=== PATIENT | female | born 1980 | race Caucasian/White ===

== ENCOUNTER 2019-09-24 08:38 | Outpatient (CLI) | payer MEDICARE, MEDICAID, SELFPAY ==
--- NOTE | 2019-09-24 09:02 | CT_ITS ---
WS: [id number] CT PARANASAL SINUSES HISTORY: CHRONIC SINUSITIS TECHNIQUE: Contiguous 2.5 mm axial images obtained through the sinuses. Images are reconstructed in s agittal and coronal planes. All CT scans at [facility] use at least one of these dose opt imization techniques: automated exposure control; mA and/or kV adjustment per patient size (includes targeted exams where dose is matched to clinical indication); or iterative reconstruction. DLP: 384.66 mGycm COMPARISON: 05/03/2017 and 12/15/2016 Frontal sinuses: Clear. Improved since the prior study. Sphenoid sinus: Moderate mucoperiosteal thickening in the RIGHT sphenoid sinus. Progressed since 12/15. Ethmoid sinuses: Small amount mucoperiosteal thickening in the posterior RIGHT ethmoid air cells, sim ilar to prior study. Maxillary sinus: Clear. Ostiomeatal unit: Widely patent. No obstruction. Nasal septum is essentially midline. Tiny spur extends to the RIGHT lung the inferior septum without any significant obstruction. CT/CT sinus wo con* [id number] IMPRESSION: 1. Moderate mucoperiosteal thickening in the RIGHT sphenoid sinus which has sl ightly progressed since 2016. 2. No air-fluid levels within the paranasal sinuses. 3. Patent ostiomeatal units.
== END 2019-09-24 08:39 | disposition home or self-care (01) ==
LOC: RADWPI 08:43
PROVIDERS: Family Provider Family Medicine; PCP Nurse Practitioner Family; Referring Provider Nurse Practitioner Family; Visit Provider Nurse Practitioner Family
DX: J32.3 Chronic sphenoidal sinusitis (principal)
CPT/HCPCS: 70486

== ENCOUNTER 2019-10-03 16:16 | Emergency (ER) | payer OTHER, MEDICARE, MEDICAID, SELFPAY ==
[2019-10-03 16:51] VITALS: BP 156/91; PULSE 71; RESP 18; TEMP 36.9; O2SAT 100; BMI 42.9
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
[2019-10-03] MEDS: ketorolac 60 mg/2 mL INJ IM (17:22)
[2019-10-03 17:32] VITALS: BP 143/83; PULSE 70; RESP 14; O2SAT 99
[2019-10-03 17:45] VITALS: BP 112/65; PULSE 81; RESP 16; TEMP 36.6; O2SAT 98
[2019-10-03 18:12] VITALS: BP 138/84; PULSE 70; RESP 14; TEMP 36.8; O2SAT 100
== END 2019-10-03 18:13 | disposition home or self-care (01) ==
PROVIDERS: Emergency Provider Nurse Practitioner Family; Family Provider Family Medicine; PCP Nurse Practitioner Family
DX: Z04.1 Encounter for examination and observation following transport accident (principal); V89.2XXA Person injured in unspecified motor-vehicle accident, traffic, initial encounter
CPT/HCPCS: 72072; 96372; 99281; J1885

== ENCOUNTER → 2019-10-15 13:06 | Outpatient (BNVA) | payer MEDICARE, MEDICAID, SELFPAY | PROVIDERS: Family Provider Family Medicine; PCP Nurse Practitioner Family; Visit Provider Psychiatry & Neurology Psychiatry | DX: F42.9 Obsessive-compulsive disorder, unspecified (principal); F33.41 Major depressive disorder, recurrent, in partial remission | CPT/HCPCS: 99213 ==

== ENCOUNTER 2019-10-30 11:06 | Outpatient (CLI) | payer MEDICARE, MEDICAID, SELFPAY ==
--- NOTE | 2019-10-30 11:26 | XR_ITS ---
WS: [id number] PROCEDURE: XR chest 2V* [id number] CLINICAL INFORMATION: DYSPNEA, COUGH COMPARISON: FINDINGS: Heart: Normal cardiac silhouette. Lungs: Lungs are clear. No consolidation or pleural fluid. No acute pulmonary infiltrates. Bones: Normal visualized bony structures. XR/XR chest 2V* [id number] IMPRESSION: Normal chest
== END 2019-10-30 11:07 | disposition home or self-care (01) ==
LOC: RADWPI 11:09
PROVIDERS: Family Provider Family Medicine; PCP Nurse Practitioner Family; Visit Provider Nurse Practitioner Family
DX: R06.00 Dyspnea, unspecified (principal); R05 Cough
CPT/HCPCS: 71046

== ENCOUNTER → 2019-11-13 09:52 | Outpatient (BNVA) | payer MEDICARE, MEDICAID, SELFPAY | PROVIDERS: Family Provider Family Medicine; PCP Nurse Practitioner Family; Visit Provider Psychiatry & Neurology Psychiatry | DX: F33.41 Major depressive disorder, recurrent, in partial remission (principal); F42.9 Obsessive-compulsive disorder, unspecified; F33.42 Major depressive disorder, recurrent, in full remission | CPT/HCPCS: 99212 ==

== ENCOUNTER → 2020-01-08 07:32 | Outpatient (BNVA) | payer MEDICARE, MEDICAID, SELFPAY | PROVIDERS: Family Provider Family Medicine; PCP Nurse Practitioner Family; Visit Provider Psychiatry & Neurology Psychiatry | DX: F42.2 Mixed obsessional thoughts and acts (principal); F33.42 Major depressive disorder, recurrent, in full remission; F17.219 Nicotine dependence, cigarettes, with unspecified nicotine-induced disorders; F43.12 Post-traumatic stress disorder, chronic | CPT/HCPCS: 99213 ==

== ENCOUNTER 2020-01-13 11:19 | Outpatient (CLI) | payer MEDICARE, MEDICAID, SELFPAY ==
--- NOTE | 2020-01-13 11:31 | XR_ITS ---
WS: [id number] FOOT RIGHT TECHNIQUE: 3 views of the right foot CLINICAL INFORMATION: right foot pain COMPARISON: None. FINDINGS: No evidence of acute fracture or dislocation. Normal tarsal metatarsal alignment. Normal calcaneus. N ormal visualized talar dome. Soft tissue edema lower leg and foot. Plantar calcaneal spurring. XR/XR foot RT min 3V* [id number] IMPRESSION: Soft tissue edema. No acute fractures
== END 2020-01-13 11:20 | disposition home or self-care (01) ==
LOC: RADWPI 11:25
PROVIDERS: Family Provider Family Medicine; PCP Nurse Practitioner Family; Visit Provider Family Medicine
DX: M79.671 Pain in right foot (principal); R60.9 Edema, unspecified
CPT/HCPCS: 73630

== ENCOUNTER 2020-02-12 14:13 | Outpatient (CLI) | payer MEDICARE, MEDICAID, SELFPAY | END 2020-02-12 14:14 | disposition home or self-care (01) | LOC: SPT 14:13 | PROVIDERS: Family Provider Family Medicine; PCP Nurse Practitioner Family; Visit Provider Podiatrist Foot & Ankle Surgery | DX: M72.2 Plantar fascial fibromatosis (principal) | CPT/HCPCS: 97760; L3030 ==

== ENCOUNTER → 2020-03-04 07:27 | Outpatient (BNVA) | payer MEDICARE, MEDICAID, SELFPAY | PROVIDERS: Family Provider Family Medicine; PCP Nurse Practitioner Family; Visit Provider Psychiatry & Neurology Psychiatry | DX: F33.42 Major depressive disorder, recurrent, in full remission (principal); F42.2 Mixed obsessional thoughts and acts; F17.219 Nicotine dependence, cigarettes, with unspecified nicotine-induced disorders | CPT/HCPCS: 99213 ==

== ENCOUNTER 2020-03-23 14:30 | Outpatient (CLI) | payer MEDICARE, MEDICAID, SELFPAY ==
--- NOTE | 2020-03-23 14:37 | XR_ITS ---
WS: [id number] ABDOMEN Supine view of the abdomen CLINICAL INFORMATION: HX OF KIDNEY STONES/RIGHT FLANK PAIN COMPARISON: None. FINDINGS: Normal bowel gas pattern. Scattered air and normal caliber small and large bowel. No significant caterina l distention. Mild lumbar curve convex right. Cholecystectomy clips. No visualized renal or ureteral calculi. XR/XR abdomen 1V* [id number] IMPRESSION: No acute abdominal findings
== END 2020-03-23 14:31 | disposition home or self-care (01) ==
LOC: RADWPI 14:34
PROVIDERS: Family Provider Family Medicine; PCP Family Medicine; Visit Provider Family Medicine
DX: R10.9 Unspecified abdominal pain (principal); Z87.442 Personal history of urinary calculi
CPT/HCPCS: 74018; 80048

== ENCOUNTER → 2020-04-07 14:11 | Outpatient (BNVA) | payer MEDICARE, MEDICAID, SELFPAY | PROVIDERS: Family Provider Family Medicine; PCP Family Medicine; Visit Provider Family Medicine | DX: R60.0 Localized edema (principal) | CPT/HCPCS: 80048 ==

== ENCOUNTER → 2020-04-20 16:44 | Outpatient (BNVA) | payer MEDICARE, MEDICAID, SELFPAY | PROVIDERS: Family Provider Family Medicine; PCP Family Medicine; Visit Provider Family Medicine | DX: R60.0 Localized edema (principal) | CPT/HCPCS: 80048 ==

== ENCOUNTER → 2020-04-22 09:37 | Outpatient (BNVA) | payer MEDICARE, MEDICAID, SELFPAY | PROVIDERS: Family Provider Family Medicine; PCP Family Medicine; Visit Provider Psychiatry & Neurology Psychiatry | DX: F33.42 Major depressive disorder, recurrent, in full remission (principal); F42.2 Mixed obsessional thoughts and acts; F17.219 Nicotine dependence, cigarettes, with unspecified nicotine-induced disorders | CPT/HCPCS: 99212 ==

== ENCOUNTER 2020-05-03 | Outpatient (CLI) | payer MEDICARE, MEDICAID, SELFPAY | END 2020-05-03 23:00 | disposition home or self-care (01) | LOC: SPT 06-14 16:23 | PROVIDERS: PCP Family Medicine; Referring Provider Podiatrist Foot & Ankle Surgery; Visit Provider Podiatrist Foot & Ankle Surgery | DX: M72.2 Plantar fascial fibromatosis (principal) | CPT/HCPCS: 97760; L4397 ==

== ENCOUNTER 2020-05-10 10:07 | Outpatient (CLI) | payer MEDICARE, MEDICAID, SELFPAY ==
--- NOTE | 2020-05-10 10:15 | USCV_ITS ---
Maria Alejandra Underwood Age: 39 Gender: F : 1980 Exam Date: 05/10/2020 10:09 Ordering Phys: Pili Fiugeredo DO Technologist: Keyla Maynard [place] [facility] [place]: HISTORY: Lower extremity edema. PROCEDURES: Right duplex Venous Insufficiency study of the Deep and Superficial systems was carried out according to normal protocol with the patient in supine positon for deep system and dependent position for the superficial system. FINDINGS: There is no evidence of RIGHT deep vein thrombosis. No evidence of superficial thrombosis in the RIGHT saphenous system. The veins were found to be easily compressible with spontaneous blood flow. Non pulsatile flow pattern. CONCLUSIONS 1. Significant venous reflux of greater than 500 ms were noted at the mid, distal and below-knee greater saphenous vein segments on the right side. (The reflux time was 1610 to 3390 ms). These venous segments were measuring 0.5 to 0.66 cm in diameter and greater than 1 cm deep from the surface. 2. No other significant venous reflux were noted on the right side. 3. No evidence of any deep vein thrombosis. Dr Luis Miguel Fine MD FAC (Electronically Signed) Final Date: 11 May 2020 18:39 S
== END 2020-05-10 10:08 | disposition home or self-care (01) ==
LOC: US 10:08
PROVIDERS: PCP Family Medicine; Visit Provider Family Medicine
DX: I87.2 Venous insufficiency (chronic) (peripheral) (principal); R60.0 Localized edema
CPT/HCPCS: 93971

== ENCOUNTER → 2020-07-21 09:03 | Outpatient (BNVA) | payer MEDICARE, MEDICAID, SELFPAY | PROVIDERS: PCP Nurse Practitioner Family; Visit Provider Psychiatry & Neurology Psychiatry | DX: F33.42 Major depressive disorder, recurrent, in full remission (principal); F42.2 Mixed obsessional thoughts and acts; F17.219 Nicotine dependence, cigarettes, with unspecified nicotine-induced disorders | CPT/HCPCS: 99213 ==

== ENCOUNTER 2020-08-27 13:06 | Emergency (ER) | payer MEDICARE, MEDICAID, SELFPAY ==
[2020-08-27 13:16] VITALS: BP 122/84; PULSE 85; RESP 18; TEMP 37.6; O2SAT 99; BMI 43.7
[2020-08-27 13:41] VITALS: BP 128/79; PULSE 64; RESP 16; O2SAT 97
--- NOTE | 2020-08-27 13:44 | W.ED.DENTAL ---
HPI - Dental/Oral General: Chief complaint: Dental/Oral Stated complaint: Oral Pain/Swelling/recent extraction Time Seen by Provider: 08/27/20 13:37 History of Present Illness: HPI Narrative: Patient is a 40-year-old female comes to the ED with oral pain and swelling. Patient had some teeth extracted on August 23. Today patient woke up with fever, right sided maxillary facial swelling and pain. She contacted her dentist and she has an appointment with them on August 30 for reevaluation. I told her she should probably be seen and put on an antibiotic. Patient says she is allergic to multiple antibiotics but has been able to take Augmentin with Benadryl in the past and she has not had any reactions. Associated symptoms: Reports fever(s); Denies odynophagia Review of Systems Const: Reports: fever(s); Denies: chills or fatigue Eyes: Denies: change in vision or eye discomfort ENMT: Reports: dental pain (Upper maxillary molars extracted on SundayAugust 23.) and sinus pain (Maxillary facial tenderness and swelling.); Denies: throat pain, odynophagia, nasal discharge or nasal congestion Card: Denies: chest pain, palpitations, edema, swelling of feet/ankles, dyspnea on exertion or orthopnea Resp: Denies: dyspnea, productive cough or non-productive cough GI: Denies: abdominal pain, nausea, vomiting, diarrhea, constipation or hematochezia : Denies: flank pain, dysuria or hematuria Musc: Denies: neck pain, back pain or extremity swelling Skin/Breast: Denies: rash or new lesions Neuro: Denies: headache(s), numbness in extremities or weakness in extremities PFSH ED PFSH: Medical History delivery delivered Enrolled in chronic care management Major depression, recurrent, full remission Nicotine dependence, cigarettes, with unspecified nicotine-induced disorders Obsessive compulsive disorder Surgical History H/O lithotripsy S/P cholecystectomy S/P tubal ligation Family History Other Hyperlipidemia Hypertension Social History Smoking and tobacco status: current every day smoker cigarettes Packs smoked per day: 1 Years cigarettes smoked: 23 Quit status (tobacco): not considering quitting Second hand smoke exposure: Yes Alcohol intake: never Female Reproductive History: Date of last menstrual period: 11/16/19 Para: 2 Physical Exam Const: COMMON NORMALS: no acute distress, patient oriented x3 and alert GENERAL APPEARANCE: cooperative and comfortable HENMT: COMMON NORMALS: normocephalic HEAD & SCALP: normocephalic FACE & SINUS: edema on the right maxilla (mild edema seen) and Facial tenderness on exam of face and sinuses on the right maxilla MOUTH: Normal oral and palatal mucosa present THROAT: posterior oropharynx normal and uvula midline Eye: COMMON NORMALS: Equal, round and reactive pupils present PUPIL: Yes Equal, round and reactive pupils present Neck/C-Spine: COMMON NORMALS: supple GENERAL: Yes normal visual inspection Resp: COMMON NORMALS: normal respiratory effort, No retractions, No use of accessory muscles and clear to auscultation bilaterally AUSCULTATION: clear to auscultation bilaterally Cardio: COMMON NORMALS: regular rate, regular rhythm, S1 normal heart sound present, S2 normal heart sound present, No gallops present (Cardio), No clicks present (Cardio), No murmurs present (Cardio) and Peripheral pulses 2+ throughout RATE: regular rate RHYTHM: regular rhythm HEART SOUNDS: S1 normal heart sound present and S2 normal heart sound present PERIPHERAL PULSES: Peripheral pulses 2+ throughout GI: COMMON NORMALS: Normal to inspection, nondistended, normoactive bowel sounds present, Soft to palpation, non-tender and no masses PALPATION: Yes Soft to palpation : COMMON NORMALS: Yes no CVA tenderness BLADDER/KIDNEY EXAM: Yes no CVA tenderness Back/Pelvis: COMMON NORMALS: no CVA tenderness Extremity: COMMON NORMALS: normal to inspection Neuro: COMMON NORMALS: patient oriented x3 and moves all extremities SENSORIUM/ORIENTATION: Yes alert Skin: GENERAL SKIN EXAM: dry skin Course Vital Signs: Vital signs: Vital Signs Temperature 99.7 F H 08/27/20 13:16 Pulse Rate 66 08/27/20 14:43 Respiratory Rate 16 08/27/20 14:43 Blood Pressure 136/88 08/27/20 14:43 Pulse Oximetry 97 08/27/20 14:43 MDM - Dental/Oral MDM Narrative: Medical decision making narrative: Patient had 2 upper right maxillary molars removed on August 23. She woke up today with some right maxillary facial swelling and tenderness and a fever. She contacted the dentist who performed the dental extraction and they told her to go to the ED and be put on some antibiotics. They will see patient on August 30. Patient had no signs of distress or trouble breathing. Patient was put on a prescription of Augmentin and discharged and told to follow-up with her dentist at her scheduled appointment this coming Sunday for reevaluation. Return to ED precautions given. Patient understood agree with plan. Discharge Plan Discharge Patient Disposition: Home Clinical Impression: Dental infection, Status post tooth extraction Condition: Stable Prescriptions: New Augmentin 500-125 mg tablet 1 tab PO BID 7 Days Qty: 14 RF: 0 Benadryl Allergy 25 mg tablet 25 mg PO Q8H PRN (Reason: allergic reaction) Qty: 30 RF: 0 No Action (DME) Sole Supports Qty: 1 RF: 0 (DME) night splint See Rx Instructions .Route .MEDSUPPLY Qty: 1 RF: 0 albuterol sulfate [Ventolin HFA] 90 mcg/actuation HFA aerosol inhaler 2 puff INHALATION Q6H PRN (Reason: Shortness Of Breath) RF: 0 Flovent HFA 110 mcg/actuation HFA aerosol inhaler 1 puff INHALATION BID PRN (Reason: Shortness Of Breath) Qty: 12 RF: 3 diazepam 5 mg tablet 5 mg PO DAILY PRN (Reason: severe Anxiety) Qty: 30 RF: 0 simvastatin 40 mg Tablet 40 mg PO DAILY@1999 RF: 0 fluticasone propionate [Flonase Allergy Relief] 50 mcg/actuation [place],Suspension 2 spray INTRANASAL BID@ RF: 0 hydrocodone-acetaminophen 5-325 mg tablet 1 tab PO PRN PRN (Reason: Pain) RF: 0 Benadryl 25 mg Capsule 25 mg PO Q6H PRN (Reason: Allergy Symptoms) RF: 0 ibuprofen 200 mg Tablet 200 mg PO Q6H PRN (Reason: Pain) RF: 0 montelukast 10 mg tablet 10 mg PO DAILY@1999 RF: 0 doxycycline hyclate 100 mg capsule 100 mg PO BID@ RF: 0 mupirocin 2 % ointment 1 applic TOPICAL BID@ RF: 0 Lasix 20 mg tablet 20 mg PO DAILY@1300 RF: 0 metoprolol tartrate 25 mg tablet 25 mg PO BID@ RF: 0 Discharge Orders: Discharge ED (Routine); Ordered 08/27/20 Ordered By: Adarsh Santiago Referrals: Modesta Hopson FNP [Primary Care Provider] - Discharge Diet: Regular Discharge Activity: Increase activity as tolerated Activity Restrictions/Additional Instructions: Follow-up with dentist at your scheduled appointment on Sunday, August 30. Take medications as prescribed. Return to the ER or your medical provider if condition worsens. Please read and understand discharge instructions. If any questions, please ask. Coding Level of Care Code ED Nuclear Control Room Operator for Kristeng Fwd Exam Comprehensive
[2020-08-27] MEDS: amoxicillin-clav 500-125 mg Tablet 1 TAB PO (14:06)
[2020-08-27] MEDS: HYDROcodone-acetaminophen 7.5-325 mg Tablet 1 TAB PO (14:06)
[2020-08-27] MEDS: diphenhydrAMINE 25 mg Capsule PO (14:07)
[2020-08-27 14:43] VITALS: BP 136/88; PULSE 66; RESP 16; O2SAT 97
== END 2020-08-27 14:43 | disposition home or self-care (01) ==
PROVIDERS: Emergency Provider Physician Assistant; PCP Nurse Practitioner Family
DX: K04.7 Periapical abscess without sinus (principal); K08.409 Partial loss of teeth, unspecified cause, unspecified class; F17.210 Nicotine dependence, cigarettes, uncomplicated
CPT/HCPCS: 12345; 99281; 99283

== ENCOUNTER 2020-08-29 02:36 | Emergency (ER) | payer MEDICARE, MEDICAID, SELFPAY ==
[2020-08-29 02:39] VITALS: BP 118/80; PULSE 62; RESP 18; TEMP 36.2; O2SAT 100; BMI 43.7
--- NOTE | 2020-08-29 02:50 | W.ED.DENTAL ---
Documented by User: IVAN Chandler 08/29/20 17:07 HPI - Dental/Oral General: Chief complaint: Dental/Oral Stated complaint: toothpulled last sunday/headache/here yesterday Time Seen by Provider: 08/29/20 02:38 History of Present Illness: HPI Narrative: Patient is a 40-year-old female comes to the ED with right upper jaw pain. Patient had teeth pulled on Sunday, August 23. Patient was seen here in the ED on August 27 due to pain and swelling to right side of face. She was sent home with a prescription of Augmentin and has an appointment with her dentist on Sunday to be reevaluated. She says today the pain has gotten worse and she feels like pain is moving down into her neck. She has been taking the Augmentin as prescribed and took 2 doses on Sunday and 2 doses today. She feels like the Augmentin has helped with some of the facial swelling and pain that was in the right maxillary region and moving upward. She says that has improved quite a bit but now she is having this increased pain and the pain is moved down towards the neck. Denies any fevers, chill, shortness of breath or swelling of the airway. Associated symptoms: Denies fever(s) or odynophagia Review of Systems Const: Denies: fever(s), chills or fatigue Eyes: Denies: change in vision or eye discomfort ENMT: Reports: sinus pain (Right maxillary and right mandible); Denies: throat pain, odynophagia, nasal discharge or nasal congestion Card: Denies: chest pain, palpitations, edema, swelling of feet/ankles, dyspnea on exertion or orthopnea Resp: Denies: dyspnea, productive cough or non-productive cough GI: Denies: abdominal pain, nausea, vomiting, diarrhea, constipation or hematochezia : Denies: flank pain, dysuria or hematuria Musc: Reports: neck pain (Right anterior aspect of neck is swollen and tender.); Denies: back pain or extremity swelling Skin/Breast: Denies: rash or new lesions Neuro: Denies: headache(s), numbness in extremities or weakness in extremities [facility] ED PFSH: Medical History (Updated 08/29/20 @ 04:18 by Andrew Eugene DO) delivery delivered Enrolled in chronic care management Major depression, recurrent, full remission Nicotine dependence, cigarettes, with unspecified nicotine-induced disorders Obsessive compulsive disorder Surgical History H/O lithotripsy S/P cholecystectomy S/P tubal ligation Family History Other Hyperlipidemia Hypertension Social History Smoking and tobacco status: current every day smoker cigarettes Packs smoked per day: 1 Years cigarettes smoked: 23 Quit status (tobacco): not considering quitting Second hand smoke exposure: Yes Alcohol intake: never Female Reproductive History: Date of last menstrual period: 11/16/19 Para: 2 Physical Exam Const: COMMON NORMALS: patient oriented x3 and alert GENERAL APPEARANCE: cooperative and comfortable HENMT: COMMON NORMALS: normocephalic HEAD & SCALP: normocephalic FACE & SINUS: Facial tenderness on exam of face and sinuses on the right mandible and maxilla MOUTH: Normal oral and palatal mucosa present TEETH & GINGIVA: Yes gingiva abnormal tender (Around extracted molars 1 and 2.) and Yes other (Patient's molars #1 and 2 have been extracted and has gingival tenderness t) THROAT: posterior oropharynx normal and uvula midline Eye: COMMON NORMALS: Equal, round and reactive pupils present PUPIL: Yes Equal, round and reactive pupils present Neck/C-Spine: COMMON NORMALS: supple GENERAL: Yes normal visual inspection Lymph: LYMPHATIC: lymphadenopathy (Patient has multiple palpable tender lymph nodes on right anterior cervical) Resp: COMMON NORMALS: normal respiratory effort, No retractions, No use of accessory muscles and clear to auscultation bilaterally AUSCULTATION: clear to auscultation bilaterally Cardio: COMMON NORMALS: regular rate, regular rhythm, S1 normal heart sound present, S2 normal heart sound present, No gallops present (Cardio), No clicks present (Cardio), No murmurs present (Cardio) and Peripheral pulses 2+ throughout RATE: regular rate RHYTHM: regular rhythm HEART SOUNDS: S1 normal heart sound present and S2 normal heart sound present PERIPHERAL PULSES: Peripheral pulses 2+ throughout GI: COMMON NORMALS: Normal to inspection, nondistended, normoactive bowel sounds present, Soft to palpation, non-tender and no masses PALPATION: Yes Soft to palpation : COMMON NORMALS: Yes no CVA tenderness BLADDER/KIDNEY EXAM: Yes no CVA tenderness Back/Pelvis: COMMON NORMALS: no CVA tenderness Extremity: COMMON NORMALS: normal to inspection Neuro: COMMON NORMALS: patient oriented x3 and moves all extremities SENSORIUM/ORIENTATION: Yes alert Skin: GENERAL SKIN EXAM: dry skin Course ED course: Patient was signed out to Dr. Eugene at 3 AM. I informed him on patient case and that I ordered labs and a neck CT to check for any abscess. Dr. Eugene accepted care will be managing patient care and discharge. Adarsh Santiago PA-C. Vital Signs: Vital signs: Vital Signs Temperature 97.2 F L 08/29/20 02:39 Pulse Rate 60 08/29/20 04:48 Respiratory Rate 17 08/29/20 04:48 Blood Pressure 120/81 08/29/20 04:48 Pulse Oximetry 99 08/29/20 04:48 MDM - Dental/Oral Lab Data: Labs: Lab Results 08/29/20 08/29/20 08/29/20 Range/Units 03:17 03:17 03:17 WBC 16.5 H (4.0-10.0) 10^3/ uL RBC 4.81 (4.1-5.3) 10^6/u L Hgb 15.0 (11.5-15.3) g/dL Hct 45.8 (37.0-47.0) % MCV 95.2 (81-99) fL MCH 31.2 (28.0-34.0) pg MCHC 32.8 (30.0-36.0) g/dL RDW 12.8 (12.1-15.1) % Plt Count 370 (130-400) 10^3/c mm MPV 9.9 (7.4-10.4) fL Neut % (Auto) 60.2 % Lymph % (Auto) 30.4 % [place] % (Auto) 7.8 % Eos % (Auto) 0.9 % Baso % (Auto) 0.5 % Neut # (Auto) 9.89 H (1.8-7.7) 10^3/u L Lymph # (Auto) 5.0 H (0.8-4.8) 10^3/u L [place] # (Auto) 1.3 H (0.2-0.9) 10^3/u L Eos # (Auto) 0.2 (0.0-0.8) 10^3/u L Baso # (Auto) 0.1 (0.0-0.1) 10^3/u L Nucleated RBC % (a uto) 0 % Nucleated RBCs # 0.0 /100WBC Sodium 139 (136-145) mmol/L Potassium 4.0 (3.5-5.1) mmol/L Chloride 108 H (98-107) mmol/L Carbon Dioxide 23 (22-29) mmol/L Anion Gap 12.0 (5-19) BUN 16 (6-20) mg/dL Creatinine 0.6 (0.5-0.9) mg/dL GFR Calculation 110.7 (90-130) mL/min Glucose 105 (65-115) mg/dL Calculated Osmolal ity 290 (285-295) mOsm/k g Calcium 8.9 (8.5-10.5) mg/dL Total Bilirubin 0.3 (0.15-1.2) mg/dL AST 16 (0-32) U/L ALT 21 (0-33) U/L Alkaline Phosphata se 109 H (35-105) IU/L Total Protein 6.7 (6.6-8.7) g/dL Albumin 3.9 (3.5-5.2) g/dL Globulin 2.8 (1.3-4.6) g/dL HCG, Qual Negative (Negative) Imaging Data^: Other CT: Attestation: I personally reviewed and interpreted this imaging study as follows: Radiologist's impression: [address] [address] [address] Scan Report Signed Patient: Kellie Cummings #: [id number] : 1980Acct#:[id number] Age/Sex: 40 / FADM Date: 08/29/20 Loc: ERRoom/Bed: Attending Dr: Ordering Provider/Ordering MD: Adarsh Santiago Date of Service: 08/29/20 Procedure(s): CT neck w con* [id number] Accession Number(s): [id number] Report Number: [id number] PROCEDURE INFORMATION: Exam: CT Neck With Contrast Exam date and time: 08/29/2020 3:11 AM Age: 40 years old Clinical indication: Other: Swelling right side of face; Patient HX: 3 upper right teeth pulled 6 days ago pain and swelling RT side of face; Additional info: Face and neck pain with swelling TECHNIQUE: Imaging protocol: Computed tomography images of the neck with intravenous contrast. Radiation optimization: All CT scans at this facility use at least one of these dose optimization techniques: automated exposure control; mA and/or kV adjustment per patient size (includes targeted exams where dose is matched to clinical indication); or iterative reconstruction. Contrast material: OMNI 300; Contrast volume: 95 ml; Contrast route: INTRAVENOUS (IV); COMPARISON: CT neck w con* [id number] 03/12/2015 8:02 PM RADIATION DOSE METRICS: Total DLP (mGy-cm): 709.22 FINDINGS: Nasopharynx: Unremarkable. Oropharynx: Unremarkable. No significant tonsillar enlargement. Hypopharynx: Unremarkable. Larynx: Unremarkable. Normal epiglottis. Retropharyngeal space: Unremarkable. Submandibular/Parotid glands: Normal. Glands are normal in size. Thyroid: Normal. No enlarged or calcified nodules. Lymph nodes: Unremarkable. No lymphadenopathy. Trachea: Visualized trachea is unremarkable. Lungs: Unremarkable as visualized. Bones/joints: Unremarkable. No acute fracture. Soft tissues: Unremarkable. No significant soft tissue swelling. CT/CT neck w con* [id number] IMPRESSION: No acute findings. Radiation Dose CTDIVOL = (mGy): DLP = 709.22 (mGy-cm) Dictated By:Tad Evangelista MD Signed By:Tad Evangelista MDSigned Date/Time:08/29/20401 DD/ 0 Discharge Plan Discharge Patient Disposition: Home Clinical Impression: Dental infection Condition: Stable Prescriptions: New Medrol (Ron) 4 mg tablets,dose pack See Rx Instructions .ROUTE .COMPLEX Qty: 21 RF: 0 No Action (DME) Sole Supports Qty: 1 RF: 0 (DME) night splint See Rx Instructions .Route .MEDSUPPLY Qty: 1 RF: 0 albuterol sulfate [Ventolin HFA] 90 mcg/actuation HFA aerosol inhaler 2 puff INHALATION Q6H PRN (Reason: Shortness Of Breath) RF: 0 Flovent HFA 110 mcg/actuation HFA aerosol inhaler 1 puff INHALATION BID PRN (Reason: Shortness Of Breath) Qty: 12 RF: 3 diazepam 5 mg tablet 5 mg PO DAILY PRN (Reason: severe Anxiety) Qty: 30 RF: 0 simvastatin 40 mg Tablet 40 mg PO DAILY@1999 RF: 0 fluticasone propionate [Flonase Allergy Relief] 50 mcg/actuation [place],Suspension 2 spray INTRANASAL BID@599,1999 RF: 0 hydrocodone-acetaminophen 5-325 mg tablet 1 tab PO PRN PRN (Reason: Pain) RF: 0 Benadryl 25 mg Capsule 25 mg PO Q6H PRN (Reason: Allergy Symptoms) RF: 0 ibuprofen 200 mg Tablet 200 mg PO Q6H PRN (Reason: Pain) RF: 0 montelukast 10 mg tablet 10 mg PO DAILY@1999 RF: 0 doxycycline hyclate 100 mg capsule 100 mg PO BID@ RF: 0 mupirocin 2 % ointment 1 applic TOPICAL BID@ RF: 0 Lasix 20 mg tablet 20 mg PO DAILY@1299 RF: 0 metoprolol tartrate 25 mg tablet 25 mg PO BID@ RF: 0 Augmentin 500-125 mg tablet 1 tab PO BID 7 Days Qty: 14 RF: 0 Benadryl Allergy 25 mg tablet 25 mg PO Q8H PRN (Reason: allergic reaction) Qty: 30 RF: 0 Discharge Orders: Discharge ED (Routine); Ordered 08/29/20 Ordered By: Andrew Eugene Referrals: Modesta Hopson FNP [Primary Care Provider] - Activity Restrictions/Additional Instructions: Continue your antibiotics as directed. Steroids to help with the swelling. Pain medication as needed. Ice may help as well. Return for worsening symptoms despite treatment. Coding Level of Care Code ED Vice President [employer] Management for Chg Fwd Exam Comprehensive Documented by User: Andrew Eugene DO 08/29/20 04:20 HPI - Dental/Oral General: Chief complaint: Dental/Oral Stated complaint: toothpulled last sunday/headache/here yesterday Time Seen by Provider: 08/29/20 02:38 [facility] ED PFS: Medical History (Updated 08/29/20 @ 04:18 by Andrew Eugene DO) delivery delivered Enrolled in chronic care management Major depression, recurrent, full remission Nicotine dependence, cigarettes, with unspecified nicotine-induced disorders Obsessive compulsive disorder Surgical History H/O lithotripsy S/P cholecystectomy S/P tubal ligation Family History Other Hyperlipidemia Hypertension Social History Smoking and tobacco status: current every day smoker cigarettes Packs smoked per day: 1 Years cigarettes smoked: 23 Quit status (tobacco): not considering quitting Second hand smoke exposure: Yes Alcohol intake: never Course Vital Signs: Vital signs: Vital Signs Temperature 97.2 F L 08/29/20 02:39 Pulse Rate 60 08/29/20 04:48 Respiratory Rate 17 08/29/20 04:48 Blood Pressure 120/81 08/29/20 04:48 Pulse Oximetry 99 08/29/20 04:48 MDM - Dental/Oral MDM Narrative: Medical decision making narrative: Received in checkout from Jack RAMÍREZ. I agree with his history, evaluation, and work-up. This lady is a significant swelling to her face, and some into her neck. No signs of Chele's angina. Her white blood cell count is 16.5. Other laboratory is benign. CT soft tissue the neck, there is no retropharyngeal abscess or other abscess or fluid collection. Edema not compromising the airway. She is given dexamethasone here, allowed home. Lab Data: Labs: Lab Results 08/29/20 08/29/20 08/29/20 Range/Units 03:17 03:17 03:17 WBC 16.5 H (4.0-10.0) 10^3/ uL RBC 4.81 (4.1-5.3) 10^6/u L Hgb 15.0 (11.5-15.3) g/dL Hct 45.8 (37.0-47.0) % MCV 95.2 (81-99) fL MCH 31.2 (28.0-34.0) pg MCHC 32.8 (30.0-36.0) g/dL RDW 12.8 (12.1-15.1) % Plt Count 370 (130-400) 10^3/c mm MPV 9.9 (7.4-10.4) fL Neut % (Auto) 60.2 % Lymph % (Auto) 30.4 % [place] % (Auto) 7.8 % Eos % (Auto) 0.9 % Baso % (Auto) 0.5 % Neut # (Auto) 9.89 H (1.8-7.7) 10^3/u L Lymph # (Auto) 5.0 H (0.8-4.8) 10^3/u L [place] # (Auto) 1.3 H (0.2-0.9) 10^3/u L Eos # (Auto) 0.2 (0.0-0.8) 10^3/u L Baso # (Auto) 0.1 (0.0-0.1) 10^3/u L Nucleated RBC % (a uto) 0 % Nucleated RBCs # 0.0 /100WBC Sodium 139 (136-145) mmol/L Potassium 4.0 (3.5-5.1) mmol/L Chloride 108 H (98-107) mmol/L Carbon Dioxide 23 (22-29) mmol/L Anion Gap 12.0 (5-19) BUN 16 (6-20) mg/dL Creatinine 0.6 (0.5-0.9) mg/dL GFR Calculation 110.7 (90-130) mL/min Glucose 105 (65-115) mg/dL Calculated Osmolal ity 290 (285-295) mOsm/k g Calcium 8.9 (8.5-10.5) mg/dL Total Bilirubin 0.3 (0.15-1.2) mg/dL AST 16 (0-32) U/L ALT 21 (0-33) U/L Alkaline Phosphata se 109 H (35-105) IU/L Total Protein 6.7 (6.6-8.7) g/dL Albumin 3.9 (3.5-5.2) g/dL Globulin 2.8 (1.3-4.6) g/dL HCG, Qual Negative (Negative) Discharge Plan Discharge Patient Disposition: Home Clinical Impression: Dental infection Condition: Stable Prescriptions: New Medrol (Ron) 4 mg tablets,dose pack See Rx Instructions .ROUTE .COMPLEX Qty: 21 RF: 0 No Action (DME) Sole Supports Qty: 1 RF: 0 (DME) night splint See Rx Instructions .Route .MEDSUPPLY Qty: 1 RF: 0 albuterol sulfate [Ventolin HFA] 90 mcg/actuation HFA aerosol inhaler 2 puff INHALATION Q6H PRN (Reason: Shortness Of Breath) RF: 0 Flovent HFA 110 mcg/actuation HFA aerosol inhaler 1 puff INHALATION BID PRN (Reason: Shortness Of Breath) Qty: 12 RF: 3 diazepam 5 mg tablet 5 mg PO DAILY PRN (Reason: severe Anxiety) Qty: 30 RF: 0 simvastatin 40 mg Tablet 40 mg PO DAILY@1999 RF: 0 fluticasone propionate [Flonase Allergy Relief] 50 mcg/actuation [place],Suspension 2 spray INTRANASAL BID@ RF: 0 hydrocodone-acetaminophen 5-325 mg tablet 1 tab PO PRN PRN (Reason: Pain) RF: 0 Benadryl 25 mg Capsule 25 mg PO Q6H PRN (Reason: Allergy Symptoms) RF: 0 ibuprofen 200 mg Tablet 200 mg PO Q6H PRN (Reason: Pain) RF: 0 montelukast 10 mg tablet 10 mg PO DAILY@1999 RF: 0 doxycycline hyclate 100 mg capsule 100 mg PO BID@ RF: 0 mupirocin 2 % ointment 1 applic TOPICAL BID@ RF: 0 Lasix 20 mg tablet 20 mg PO DAILY@1299 RF: 0 metoprolol tartrate 25 mg tablet 25 mg PO BID@ RF: 0 Augmentin 500-125 mg tablet 1 tab PO BID 7 Days Qty: 14 RF: 0 Benadryl Allergy 25 mg tablet 25 mg PO Q8H PRN (Reason: allergic reaction) Qty: 30 RF: 0 Discharge Orders: Discharge ED (Routine); Ordered 08/29/20 Ordered By: Andrew Eugene Referrals: Modesta Hopson FNP [Primary Care Provider] - Activity Restrictions/Additional Instructions: Continue your antibiotics as directed. Steroids to help with the swelling. Pain medication as needed. Ice may help as well. Return for worsening symptoms despite treatment. Coding Level of Care Code ED Vice President [employer] Management for Chg Fwd Exam Comprehensive
--- NOTE | 2020-08-29 03:02 | CTR_ITS ---
PROCEDURE INFORMATION: Exam: CT Neck With Contrast Exam date and time: 08/29/2020 3:11 AM Age: 40 years old Clinical indication: Other: Swelling right side of face; Patient HX: 3 upper right teeth pulled 6 days ago pain and swelling RT side of face; Additional info: Face and neck pain with swelling TECHNIQUE: Imaging protocol: Computed tomography images of the neck with intravenous contrast. Radiation optimization: All CT scans at this facility use at least one of these dose optimization techniques: automated exposure control; mA and/or kV adjustment per patient size (includes targeted exams where dose is matched to clinical indication); or iterative reconstruction. Contrast material: OMNI 300; Contrast volume: 95 ml; Contrast route: INTRAVENOUS (IV); COMPARISON: CT neck w con* [id number] 03/12/2015 8:02 PM RADIATION DOSE METRICS: Total DLP (mGy-cm): 709.22 FINDINGS: Nasopharynx: Unremarkable. Oropharynx: Unremarkable. No significant tonsillar enlargement. Hypopharynx: Unremarkable. Larynx: Unremarkable. Normal epiglottis. Retropharyngeal space: Unremarkable. Submandibular/Parotid glands: Normal. Glands are normal in size. Thyroid: Normal. No enlarged or calcified nodules. Lymph nodes: Unremarkable. No lymphadenopathy. Trachea: Visualized trachea is unremarkable. Lungs: Unremarkable as visualized. Bones/joints: Unremarkable. No acute fracture. Soft tissues: Unremarkable. No significant soft tissue swelling. CT/CT neck w con* [id number] IMPRESSION: No acute findings. Radiation Dose CTDIVOL = (mGy): DLP = 709.22 (mGy-cm)
[2020-08-29 03:21] VITALS: RESP 18; O2SAT 98
[2020-08-29] MEDS: HYDROmorphone 1 mg/mL INJ 1 mL 0.5 MG IVP (03:21)
[2020-08-29 03:23] LABS: Basophils # 0.1 10^3/uL (0.0-0.1); Basophils % 0.5 %; Eosinophils # 0.2 10^3/uL (0.0-0.8); Eosinophils % 0.9 %; Hematocrit 45.8 % (37.0-47.0); Lymphocytes % 30.4 %; Mean Corpuscular HGB Conc 32.8 g/dL (30.0-36.0); Mean Corpuscular Hemoglobin 31.2 pg (28.0-34.0); Mean Corpuscular Volume 95.2 fL (81-99); Mean Platelet Volume 9.9 fL (7.4-10.4); Monocytes # 1.3 10^3/uL (0.2-0.9); Monocytes % 7.8 %; Neutrophils # 9.89 10^3/uL (1.8-7.7); Neutrophils % 60.2 %; Nucleated Red Blood Cells % 0 %; Platelet Count 370 10^3/cmm (130-400); Red Blood Count 4.81 10^6/uL (4.1-5.3); Red Cell Distribution Width 12.8 % (12.1-15.1); White Blood Count 16.5 10^3/uL (4.0-10.0)
[2020-08-29] MEDS: sodium chloride 0.9% 500 ML 999 ML IV (03:23)
[2020-08-29] MEDS: ondansetron 2 mg/ML SDV 2 mL 4 MG IVP (03:24)
[2020-08-29 03:33] LABS: HCG, Serum Qual Negative (Negative)
[2020-08-29 03:43] LABS: Alanine Aminotransferase 21 U/L (0-33); Albumin Level 3.9 g/dL (3.5-5.2); Alkaline Phosphatase 109 IU/L (35-105); Aspartate Amino Transferase 16 U/L (0-32); Blood Urea Nitrogen 16 mg/dL (6-20); Calcium 8.9 mg/dL (8.5-10.5); Carbon Dioxide 23 mmol/L (22-29); Chloride 108 mmol/L (98-107); Globulin 2.8 g/dL (1.3-4.6); Glomerular Filtration Rate 110.7 mL/min (90-130); Glucose 105 mg/dL (65-115); Osmolality Calculated 290 mOsm/kg (285-295); Sodium 139 mmol/L (136-145); Total Bilirubin 0.3 mg/dL (0.15-1.2); Total Protein 6.7 g/dL (6.6-8.7)
[2020-08-29] MEDS: iohexol 300 mg/mL 100 mL Btl IV (03:48)
[2020-08-29] MEDS: dexamethasone 4 mg/mL INJ 10 MG IVP (04:12)
[2020-08-29] MEDS: ketorolac 30 mg/mL INJ IVP (04:35)
[2020-08-29 04:48] VITALS: BP 120/81; PULSE 60; RESP 17; O2SAT 99
== END 2020-08-29 04:48 | disposition home or self-care (01) ==
PROVIDERS: Physician Assistant; Emergency Provider Emergency Medicine; PCP Nurse Practitioner Family
DX: K04.7 Periapical abscess without sinus (principal); F17.210 Nicotine dependence, cigarettes, uncomplicated
CPT/HCPCS: 12345; 70491; 80053; 84703; 85025; 96374; 96375; 99282; 99283; J1100; J1170; J1885; J2405; J7040; Q9967

== ENCOUNTER 2020-08-31 18:36 | Emergency (ER) | payer MEDICARE, MEDICAID, SELFPAY ==
[2020-08-31 19:02] VITALS: BP 142/90; PULSE 58; RESP 18; TEMP 35.9; O2SAT 98; BMI 43.7
--- NOTE | 2020-08-31 19:23 | W.ED.ALLEREA ---
HPI - Allergic Reaction General: Chief complaint: Allergic Reaction Stated complaint: poss allergic reaction Time Seen by Provider: 08/31/20 19:09 Source: patient Mode of arrival: ambulatory Limitations: no limitations History of Present Illness: HPI narrative: 40-year-old female who states she has been on antibiotics and just finished it today. She states that she started having a rash like her throat was closing today. Patient states her rash has improved so is her feeling of her throat closing but does still have a slight rash to her face and neck. She is in no distress here. Denies any worsening improving factors. complaint: allergic reaction Onset (ago): day(s) Associated symptoms: Deny abdominal pain, nausea or vomiting Review of Systems Const: Denies: fever(s), chills, body aches or change in appetite Eyes: Denies: blurry vision or eye discomfort ENMT: Denies: throat pain or dental pain Card: Denies: chest pain Resp: Denies: dyspnea GI: Denies: abdominal pain, nausea, vomiting or diarrhea : Denies: dysuria Musc: Denies: neck pain or back pain Skin/Breast: Reports: rash Neuro: Denies: headache(s) Psych: Denies: depression [place]/Lymph: Denies: easy bruising All/Imm: Denies: urticaria PFSH ED PFSH: Medical History (Updated 08/31/20 @ 20:31 by Alejandra Saucedo MD) delivery delivered Enrolled in chronic care management Major depression, recurrent, full remission Nicotine dependence, cigarettes, with unspecified nicotine-induced disorders Obsessive compulsive disorder Surgical History H/O lithotripsy S/P cholecystectomy S/P tubal ligation Family History Other Hyperlipidemia Hypertension Social History Smoking and tobacco status: current every day smoker cigarettes Packs smoked per day: 1 Years cigarettes smoked: 23 Quit status (tobacco): not considering quitting Second hand smoke exposure: Yes Alcohol intake: never Female Reproductive History: Date of last menstrual period: 11/16/19 Para: 2 Physical Exam Const: COMMON NORMALS: no acute distress, patient oriented x3 and healthy appearing HENMT: COMMON NORMALS: normocephalic and atraumatic HEAD & SCALP: normocephalic and atraumatic Eye: COMMON NORMALS: Equal, round and reactive pupils present and EOMs intact bilaterally PUPIL: Yes Equal, round and reactive pupils present Neck/C-Spine: COMMON NORMALS: full ROM and supple Chest: COMMONS NORMALS: normal inspection of the chest and normal palpation of entire chest wall Resp: COMMON NORMALS: normal respiratory effort, No retractions, No use of accessory muscles and clear to auscultation bilaterally AUSCULTATION: clear to auscultation bilaterally Cardio: COMMON NORMALS: regular rate, regular rhythm and No murmurs present (Cardio) RATE: regular rate RHYTHM: regular rhythm GI: COMMON NORMALS: Normal to inspection, nondistended, normoactive bowel sounds present, Soft to palpation, non-tender and no masses PALPATION: Yes Soft to palpation Extremity: COMMON NORMALS: normal to inspection and full ROM Neuro: COMMON NORMALS: patient oriented x3, moves all extremities and no focal motor deficits Psych: COMMON NORMALS: mental status grossly normal, Normal thought process present and cooperative THOUGHT PROCESS: Normal thought process present Skin: COMMON NORMALS: no wounds NARRATIVE SKIN EXAM: slight rash to face and chest Course Vital Signs: Vital signs: Vital Signs Temperature 96.6 F L 08/31/20 19:02 Pulse Rate 49 L 08/31/20 20:24 Respiratory Rate 21 H 08/31/20 20:24 Blood Pressure 108/48 08/31/20 20:24 Pulse Oximetry 100 08/31/20 20:24 MDM - Allergic Reaction MDM Narrative: Medical decision making narrative: Patient presents here with likely allergic reaction. She has a slight rash to her chest that is resolved now. She has no signs of anaphylaxis or airway involvement. Patient's had no distress here and is stable for discharge. Patient is to return if worsening. Discharge Plan Discharge Patient Disposition: Home Clinical Impression: Allergic reaction Qualifiers: Encounter type: initial encounter Qualified Code(s): T78.40XA - Allergy, unspecified, initial encounter Condition: Stable Prescriptions: No Action (DME) Sole Supports Qty: 1 RF: 0 (DME) night splint See Rx Instructions .Route .MEDSUPPLY Qty: 1 RF: 0 albuterol sulfate [Ventolin HFA] 90 mcg/actuation HFA aerosol inhaler 2 puff INHALATION Q6H PRN (Reason: Shortness Of Breath) RF: 0 diphenhydramine HCl [Benadryl] 25 mg capsule 25 mg PO TID PRNRF: 0 Flovent HFA 110 mcg/actuation HFA aerosol inhaler 1 puff INHALATION BID PRN (Reason: Shortness Of Breath) Qty: 12 RF: 3 diazepam 5 mg tablet 5 mg PO DAILY PRN (Reason: severe Anxiety) Qty: 30 RF: 0 simvastatin 40 mg Tablet 40 mg PO DAILY@1999 RF: 0 fluticasone propionate [Flonase Allergy Relief] 50 mcg/actuation [place],Suspension 2 spray INTRANASAL BID@ RF: 0 hydrocodone-acetaminophen 5-325 mg tablet 1 tab PO PRN PRN (Reason: Pain) RF: 0 Benadryl 25 mg Capsule 25 mg PO Q6H PRN (Reason: Allergy Symptoms) RF: 0 ibuprofen 200 mg Tablet 200 mg PO Q6H PRN (Reason: Pain) RF: 0 montelukast 10 mg tablet 10 mg PO DAILY@1999 RF: 0 doxycycline hyclate 100 mg capsule 100 mg PO BID@ RF: 0 mupirocin 2 % ointment 1 applic TOPICAL BID@ RF: 0 Lasix 20 mg tablet 20 mg PO DAILY@1300 RF: 0 metoprolol tartrate 25 mg tablet 25 mg PO BID@ RF: 0 Augmentin 500-125 mg tablet 1 tab PO BID 7 Days Qty: 14 RF: 0 Benadryl Allergy 25 mg tablet 25 mg PO Q8H PRN (Reason: allergic reaction) Qty: 30 RF: 0 Medrol (Ron) 4 mg tablets,dose pack See Rx Instructions .ROUTE .COMPLEX Qty: 21 RF: 0 Discharge Orders: Discharge ED (Routine); Ordered 08/31/20 Ordered By: Alejandra Saucedo Referrals: Modesta Hopson FNP [Primary Care Provider] - Discharge Diet: Advance as tolerated Discharge Activity: Resume usual activity Patient Instructions: Allergic Reaction Coding Level of Care Code ED [employer] Packer for Chg Fwd Exam Comprehensive
[2020-08-31] MEDS: famotidine 20 mg/2 mL INJ 40 MG IVP (20:20)
[2020-08-31 20:24] VITALS: BP 108/48; PULSE 49; RESP 21; O2SAT 100
[2020-08-31] MEDS: diphenhydrAMINE 50 mg/mL SDV 1mL IVP (20:25)
[2020-08-31 20:49] VITALS: BP 110/70; PULSE 52; RESP 16; O2SAT 98
--- NOTE | 2020-08-31 20:53 | PC.NURSE ---
I agree with this assessment
== END 2020-08-31 20:53 | disposition home or self-care (01) ==
PROVIDERS: Emergency Provider Emergency Medicine; PCP Nurse Practitioner Family
DX: T78.40XA Allergy, unspecified, initial encounter (principal); F17.210 Nicotine dependence, cigarettes, uncomplicated
CPT/HCPCS: 12345; 96374; 96375; 99282; 99283; J1200; J3490

== ENCOUNTER → 2020-10-04 08:30 | Outpatient (BNVA) | payer MEDICARE, MEDICAID, SELFPAY | PROVIDERS: PCP Nurse Practitioner Family; Visit Provider Psychiatry & Neurology Psychiatry | DX: F33.42 Major depressive disorder, recurrent, in full remission (principal); F42.2 Mixed obsessional thoughts and acts; F17.219 Nicotine dependence, cigarettes, with unspecified nicotine-induced disorders | CPT/HCPCS: 99212 ==

== ENCOUNTER 2020-11-23 07:29 | Outpatient (CLI) | payer MEDICARE, MEDICAID, SELFPAY ==
--- NOTE | 2020-11-23 07:15 | XRR_ITS ---
PROCEDURE INFORMATION: Exam: XR Abdomen Exam date and time: 11/23/2020 7:44 AM Age: 40 years old Clinical indication: Condition or disease; Kidney or ureter condition; Calculus (stone) in kidney; Prior surgery; Surgery type: 2 c section, lithotripsy; Additional info: Stones TECHNIQUE: Imaging protocol: XR of the abdomen. Views: Frontal supine view of the abdomen. 1 View. COMPARISON: CR XR abdomen 1V* [id number] 03/23/2020 2:42 PM FINDINGS: Gastrointestinal tract: Normal. No bowel dilation. Organs: No urinary calcifications are seen. Clips are present in the right upper quadrant from cholecystectomy. Bones/joints: Unremarkable. XR/XR KUB [id number] IMPRESSION: No significant abnormality. No urinary calcifications are seen.
== END 2020-11-23 07:30 | disposition home or self-care (01) ==
LOC: RAD 07:33
PROVIDERS: PCP Nurse Practitioner Family; Visit Provider Urology
DX: N20.0 Calculus of kidney (principal)
CPT/HCPCS: 74018; 81003

== ENCOUNTER → 2020-12-28 07:25 | Outpatient (BNVA) | payer MEDICARE, MEDICAID, SELFPAY | PROVIDERS: PCP Nurse Practitioner Family; Visit Provider Psychiatry & Neurology Psychiatry | DX: F33.42 Major depressive disorder, recurrent, in full remission (principal); F42.2 Mixed obsessional thoughts and acts; F17.219 Nicotine dependence, cigarettes, with unspecified nicotine-induced disorders | CPT/HCPCS: 99214 ==

== ENCOUNTER → 2021-02-24 07:25 | Outpatient (BNVA) | payer MEDICARE, MEDICAID, SELFPAY | PROVIDERS: PCP Nurse Practitioner Family; Visit Provider Psychiatry & Neurology Psychiatry | DX: F42.2 Mixed obsessional thoughts and acts (principal); F33.42 Major depressive disorder, recurrent, in full remission; F17.219 Nicotine dependence, cigarettes, with unspecified nicotine-induced disorders | CPT/HCPCS: 99214 ==

== ENCOUNTER 2021-03-07 15:21 | Outpatient (CLI) | payer MEDICARE, MEDICAID, SELFPAY ==
--- NOTE | 2021-03-07 15:27 | MM_ITS ---
WS: [id number] SCREENING DIGITAL MAMMOGRAM WITH CAD HISTORY: SCREENING COMPARISON: 11/25/2012 and 01/03/2010 Bilateral CC and MLO views submitted. Computer aided detection analyzed. Breast composition: There are scattered areas of fibroglandular density. Rounded 5 mm nodule in the LEFT breast at 3:00. This nodule is new since the prior study from 2012. N o suspicious calcifications or masses otherwise. MM/[place] [id number] IMPRESSION: BI-RADS: 0-Incomplete: Need additional imaging evaluation FOLLOW UP: Need Additional Imaging LEFT breast: Spot compression views (CC and MLO). True ML. Ultrasound to follow if abnormality persists.
== END 2021-03-07 15:22 | disposition home or self-care (01) ==
PROVIDERS: PCP Nurse Practitioner Family; Visit Provider Nurse Practitioner Family
DX: Z12.31 Encounter for screening mammogram for malignant neoplasm of breast (principal)
CPT/HCPCS: 77067

== ENCOUNTER 2021-03-31 14:05 | Outpatient (CLI) | payer MEDICARE, MEDICAID, SELFPAY ==
--- NOTE | 2021-03-31 14:16 | US_ITS ---
WS: [id number] ADDITIONAL VIEWS LEFT MAMMOGRAM LEFT BREAST ULTRASOUND HISTORY: LT BREAST ABNORMAL MAMMOGRAM COMPARISON: 03/07/2021 and 11/25/2012 LEFT MAMMOGRAM: Spot compression views and true ML. Well-circumscribed 5 mm nodule just medial to the nipple and at the nipple line. Margins are well vis ualized. No calcification or distortion. LEFT BREAST ULTRASOUND 2-D and color Doppler imaging submitted. Ultrasound directed to the 3:00 axis. There is a hypoechoic mass which is circumscribed at 3:00, 4 cm from the nipple measuring 6 x 4 x 5 mm. This corresponds in size and location to the mammographic ab normality. This is not a cyst. There is no increased vascularity. Favor this is probably benign. US/US breast LT limited* [id number] IMPRESSION: BI-RADS: 3-Probably Benign FOLLOW UP: 6 Month Follow-up Recommend 6 month ultrasound follow-up LEFT breast at 3:00.
== END 2021-03-31 14:06 | disposition home or self-care (01) ==
LOC: RADSHAW 14:12
PROVIDERS: PCP Nurse Practitioner Family; Visit Provider Nurse Practitioner Family
DX: R92.8 Other abnormal and inconclusive findings on diagnostic imaging of breast (principal); N63.25 Unspecified lump in the left breast, overlapping quadrants
CPT/HCPCS: 76642; 77065

== ENCOUNTER → 2021-05-12 08:27 | Outpatient (BNVA) | payer MEDICARE, MEDICAID, SELFPAY | PROVIDERS: PCP Nurse Practitioner Family; Visit Provider Psychiatry & Neurology Psychiatry | DX: F33.42 Major depressive disorder, recurrent, in full remission (principal); F42.2 Mixed obsessional thoughts and acts | CPT/HCPCS: 99213 ==

== ENCOUNTER 2021-05-20 15:52 | Emergency (ER) | payer MEDICARE, MEDICAID, SELFPAY ==
[2021-05-20 16:40] VITALS: BP 142/84; PULSE 89; RESP 16; TEMP 37.1; O2SAT 98; BMI 41.1
--- NOTE | 2021-05-20 16:50 | USR_ITS ---
PROCEDURE INFORMATION: Exam: US Duplex Right Lower Extremity Veins, Limited Exam date and time: 05/20/2021 4:50 PM Age: 40 years old Clinical indication: Pain and injury or trauma; Fall; Blunt trauma (contusions or hematomas); Right; Lower extremity, lower leg level; Other superficial vein; Leg, lower; Injury date: 05-20-2021; Injury details: PT is worried about recent ablation of RT gsv from knee to ankle; Prior surgery; Surgery date: 3-7 days post-operative; Surgery type: Ablation of RT gsv from knee to above ankle; Additional info: Trauma/pain TECHNIQUE: Imaging protocol: Real-time Duplex ultrasound of the Right Lower Extremity with 2-D richard scale, color Doppler flow and spectral waveform analysis with image documentation. Limited exam was focused on the right lower extremity veins. COMPARISON: CT Abdomen/Pelvis Renal [id number] 08/22/2019 11:14 AM FINDINGS: Right deep veins: Unremarkable. The common femoral, femoral, proximal profunda femoral and popliteal veins are patent without thrombus. Normal Doppler waveforms. Normal compressibility and/or augmentation response. Right superficial veins: Sequela of prior great saphenous vein ablation from the level of the knee to the ankle. Soft tissues: Unremarkable. US/[place] [id number] IMPRESSION: No evidence of deep vein thrombosis.
== END 2021-05-20 19:58 ==
PROVIDERS: Emergency Provider Family Medicine; PCP Nurse Practitioner Family
DX: M79.604 Pain in right leg (principal); Z53.21 Procedure and treatment not carried out due to patient leaving prior to being seen by health care provider
CPT/HCPCS: 93971

== ENCOUNTER 2021-06-10 14:28 | Outpatient (CLI) | payer MEDICARE, MEDICAID, SELFPAY ==
--- NOTE | 2021-06-10 14:36 | USCV_ITS ---
Maria Alejandra Cummings Age: 40 Gender: F : 1980 Exam Date: 06/10/2021 14:52 Ordering Phys: Modesta Hopson STEWARD/STEWARDESS BATH Technologist: Andrew Espinal Exam Location: [facility] [place] Indication: RLE PAIN HISTORY: Lower extremity pain. PROCEDURES: Venous duplex imaging was performed in only the right lower extremity. The following venous structures were evaluated: common femoral vein, profunda vein, proximal portion of the greater saphenous vein, superficial femoral vein, and the popliteal vein. In addition, the posterior tibial and peroneal trunk were evaluated. Serial compression, augmentation maneuvers, and spectral Doppler flow evaluation were performed. FINDINGS: No evidence of DVT seen in any vessel visualized at this time. CONCLUSIONS No evidence of right lower extremity DVT. Shun Bradley MD (Electronically Signed) Final Date: 10 June 2021 16:34 S
== END 2021-06-10 14:29 | disposition home or self-care (01) ==
LOC: RAD 14:33
PROVIDERS: PCP Nurse Practitioner Family; Visit Provider Nurse Practitioner Family
DX: M79.604 Pain in right leg (principal)
CPT/HCPCS: 93971

== ENCOUNTER 2021-07-06 12:18 | Outpatient (CLI) | payer MEDICARE, MEDICAID, SELFPAY ==
--- NOTE | 2021-07-06 12:33 | CT_ITS ---
WS: [id number] CT ABDOMEN AND PELVIS WITH CONTRAST HISTORY: ABDOMINAL PAIN RIGHT LOWER QUADRANT, DIVERTICULITIS TECHNIQUE: Imaging performed of the abdomen and pelvis with IV contrast. Single phase imaging of the abdomen. Coronal and sagittal reformats are submitted. All CT scans at [facility] use at j[address] one of these dose optimization techniques: automated exposure control; mA and/or kV adjustment per patient size (includes targeted exams where dose is matched to clinical indication); or iterative re construction. IV CONTRAST: Omnipaque 300; 95 mL IV. Oral contrast: No DLP: 1200.47 mGycm COMPARISON: 08/22/2019 Lower thorax: Lung bases are clear. Heart is normal size. No hiatal hernia. Liver/biliary system: Very mild hepatic steatosis. No bile duct dilatation or mass. Normal portal vei n. Gallbladder: Status post cholecystectomy. Pancreas: Normal size pancreas and pancreatic duct. No adjacent inflammation. Spleen: Normal size spleen. No mass or infarct. Adrenal glands: Normal RIGHT adrenal gland. Stable low-attenuation nodule measuring 14 x 18 mm in the LEFT adrenal. Consistent with an adenoma. Stable over multiple prior years. Right kidney: Normal size kidney. 11 mm cyst exophytic from the mid kidney. No hydronephrosis or nickie d mass. Left kidney: Normal. Aorta: Normal. Lymphadenopathy: None. Free fluid: None. GI tract: Normal appendix. The appendix is abnormally located in the RIGHT upper quadrant medial to t he RIGHT lobe of the liver. The appendix is just inferior to the gallbladder fossa. The appendix is d istended with air and normal. Diffuse mild constipation. No obstruction. No significant diverticular disease. Abdominal wall: Unremarkable abdominal wall. No hernia. Pelvis: No free fluid or adenopathy. Uterus is midline and mildly prominent. There are several small cysts within the RIGHT ovary. The largest measures 2.6 x 2.7 cm. No masses or adjacent inflammation. Bones: Sclerotic foci within the femoral heads consistent with bone islands. CT/CT abdomen pelvis w con* [id number] IMPRESSION: 1. No evidence for acute appendicitis. Appendix is located along the medial RI GHT lobe of the liver. 2. Small cyst within the RIGHT ovary. 3. No acute abdominal or pelvic abnormalities. 4. Prior cholecystectomy. 5. Long-term stability LEFT adrenal adenoma.
== END 2021-07-06 12:19 | disposition home or self-care (01) ==
PROVIDERS: PCP Nurse Practitioner Family; Visit Provider Nurse Practitioner Family
DX: R10.31 Right lower quadrant pain (principal); K57.92 Diverticulitis of intestine, part unspecified, without perforation or abscess without bleeding; N83.201 Unspecified ovarian cyst, right side; Z90.49 Acquired absence of other specified parts of digestive tract; D35.02 Benign neoplasm of left adrenal gland
CPT/HCPCS: 74177; Q9967

== ENCOUNTER → 2021-07-19 08:16 | Outpatient (BNVA) | payer MEDICARE, MEDICAID, SELFPAY | PROVIDERS: PCP Nurse Practitioner Family; Visit Provider Psychiatry & Neurology Psychiatry | DX: F33.42 Major depressive disorder, recurrent, in full remission (principal); F42.2 Mixed obsessional thoughts and acts; F17.219 Nicotine dependence, cigarettes, with unspecified nicotine-induced disorders | CPT/HCPCS: 99213 ==

== ENCOUNTER 2021-08-05 06:06 | Emergency (ER) | payer MEDICARE, MEDICAID, SELFPAY ==
[2021-08-05 06:12] VITALS: BP 131/89; PULSE 71; RESP 18; O2SAT 99; BMI 40.3
--- NOTE | 2021-08-05 06:21 | XRR_ITS ---
PROCEDURE INFORMATION: Exam: XR Chest Exam date and time: 08/05/2021 6:21 AM Age: 41 years old Clinical indication: Radiating; Prior surgery; Surgery type: Breast reduction; Patient HX: Chest pain with posterior radiation into back. TECHNIQUE: Imaging protocol: XR of the chest. Views: 1 view. COMPARISON: CR XR chest 2V* [id number] 10/30/2019 11:35 AM FINDINGS: Lungs: Unremarkable. No consolidation. Pleural spaces: Unremarkable. No pleural effusion. No pneumothorax. Heart/Mediastinum: Unremarkable. No cardiomegaly. Bones/joints: Unremarkable. XR/XR chest 1V portable [id number] IMPRESSION: No acute findings. Radiation Dose CTDIVOL = (mGy): DLP = (mGy-cm)
--- NOTE | 2021-08-05 06:21 | ECG_ITS ---
[facility] Test Date: 2021-08-05 Pat Name: Maria Alejandra Cummings Department: Room: Gender: Female Benefits Representative: : 1980 Requested By: Maximo Ferraro Order Number: [id number] Sue MD: Maegan Valles M.D. Measurements Intervals [place] Rate: 69 P: 18 [place]: 150 QRS: 11 QRSD: 102 T: 69 QT: 407 QTc: 436 Interpretive Statements SINUS RHYTHM NONSPECIFIC T-WAVE ABNORMALITY Compared to ECG 10/19/2015 19:27:42 T-wave abnormality now present Sinus arrhythmia no longer present Electronically Signed On 08-05-2021 16:07:41 AGENCY DEVELOPMENT MANAGER by Maegan Valles M.D. [id number] f
--- NOTE | 2021-08-05 06:36 | ED_ITS ---
HPI - Chest Pain General: Chief Complaint: Chest Pain Stated Complaint: Chest Pain Time Seen by Provider: 08/05/21 06:16 History of Present Illness: HPI narrative: 41-year-old female presents to the emergency room with complaints of chest pain. She woke up with chest pain radiating to her back just to the left of the midline at the level of the mid scapular line. She got up to go to the bathroom she got up and started walking around it seemed to get worse she said it became very severe after she got to the bathroom worse when she tried to take a deep breath or moves in certain positions. The time she arrived here is completely resolved. She is not having difficulty breathing. She never had any pain radiating to her arms. She has no nausea vomiting or diarrhea. She is not had similar pain in the past. She has no history of DVTs or PE. MD complaint: other (Back pain) Onset (ago): minute(s) Timing of current episode: episodic Prior episodes: Yes Onset: during rest Pain location: other (Mid upper back left midline) Pain radiation: none Severity: mild Quality: sharp Relieving factors: nothing Exacerbating factors: inspiration and movement Associated symptoms: Deny abdominal pain, diaphoresis, dyspnea, fever(s), leg edema, nausea, palpitations, sense of impending doom, syncope or vomiting Treatment prior to arrival: none Review of Systems Const: Denies: fever(s) or diaphoresis ENMT: Denies: throat pain, ear or mastoid pain, nasal discharge or nasal congestion Card: Denies: palpitations or syncope Resp: Denies: dyspnea GI: Denies: abdominal pain, nausea or vomiting : Denies: flank pain, difficulty voiding, dysuria, urinary frequency or urinary urgency Skin/Breast: Denies: rash or pruritus PFS ED PFSH: Medical History delivery delivered Enrolled in chronic care management Major depression, recurrent, full remission Nicotine dependence, cigarettes, with unspecified nicotine-induced disorders Obsessive compulsive disorder Recurrent UTI Urolithiasis Surgical History H/O lithotripsy S/P cholecystectomy S/P tubal ligation Family History Other Hyperlipidemia Hypertension Social History Smoking and tobacco status: current every day smoker cigarettes Packs smoked per day: 1 Years cigarettes smoked: 23 Quit status (tobacco): not considering quitting Second hand smoke exposure: Yes Alcohol intake: never Female Reproductive History: Date of last menstrual period: 05/16/21 Para: 2 Physical Exam Const: COMMON NORMALS: no acute distress GENERAL APPEARANCE: cooperative and comfortable ORIENTATION/CONSCIOUSNESS: Yes awake, Yes oriented to person, Yes oriented to place and Yes oriented to time HENMT: COMMON NORMALS: normocephalic, atraumatic and hearing grossly normal bilaterally HEAD & SCALP: normocephalic and atraumatic Resp: COMMON NORMALS: normal respiratory effort, No retractions, No use of accessory muscles and clear to auscultation bilaterally AUSCULTATION: clear to auscultation bilaterally Cardio: COMMON NORMALS: regular rate, regular rhythm and No murmurs present (Cardio) RATE: regular rate RHYTHM: regular rhythm GI: COMMON NORMALS: Soft to palpation and No hepatosplenomegaly present AUSCULTATION: Yes normoactive bowel sounds PALPATION: Yes Soft to palpation, No Tenderness to palpation present (GI), No Guarding due to palpation present (GI) and Yes No hepatosplenomegaly present Extremity: COMMON NORMALS: normal to inspection, capillary refill normal, no clubbing, cyanosis or edema and no calf tenderness GENERAL: Yes edema (Mild chronic, unchanged) Neuro: SENSORIUM/ORIENTATION: Yes oriented to person, Yes oriented to place and Yes oriented to time Skin: COMMON NORMALS: no rashes or lesions noted GENERAL SKIN EXAM: no rashes or lesions noted Course Vital Signs: Vital signs: Vital Signs Pulse Rate 82 08/05/21 10:21 Respiratory Rate 17 08/05/21 10:21 Blood Pressure 123/79 08/05/21 10:21 Pulse Oximetry 97 08/05/21 10:21 MDM - Chest Pain MDM Narrative: Medical decision making narrative: Labs imaging and EKG reviewed as found on the chart. No acute ST changes noted. We will go ahead and discharge her home set up for Lexiscan sestamibi stress test as an outpatient. Advised patient to take aspirin 81 mg daily until stress test completed and resulted, return if has further problems. Lab Data: Labs: Lab Results 08/05/21 08/05/21 08/05/21 06:40 06:40 06:40 WBC 12.8 10^3/uL H 10 ^3/uL (4.0-10.0) RBC 4.80 10^6/uL 10^6 /uL (4.1-5.3) Hgb 15.0 g/dL g/dL (11.5-15.3) Hct 44.9 % % (37.0-47.0) MCV 93.5 fl fl (81-99) MCH 31.3 pg pg (28.0-34.0) MCHC 33.4 g/dL g/dL (30.0-36.0) RDW 13.8 % % (12.1-15.1) Plt Count 317 10^3/cmm 10^3 /cmm (130-400) MPV 10.0 fL fL (7.4-10.4) Neut % (Auto) 58.3 % % Lymph % (Auto) 32.2 % % [place] % (Auto) 6.5 % % Eos % (Auto) 2.3 % % Baso % (Auto) 0.5 % % Neut # (Auto) 7.48 10^3/uL 10^3 /uL (1.8-7.7) Lymph # (Auto) 4.1 10^3/uL 10^3/ uL (0.8-4.8) [place] # (Auto) 0.8 10^3/uL 10^3/ uL (0.2-0.9) Eos # (Auto) 0.3 10^3/uL 10^3/ uL (0.0-0.8) Baso # (Auto) 0.1 10^3/uL 10^3/ uL (0.0-0.1) Nucleated RBC % (a uto) 0 % % Nucleated RBCs # 0.0 /100WBC /100W BC Sodium 138 mmol/L mmol/L (136-145) Potassium 3.8 mmol/L mmol/L (3.5-5.1) Chloride 105 mmol/L mmol/L (98-107) Carbon Dioxide 21 mmol/L L mmol/ L (22-29) Anion Gap 15.8 (5-19) BUN 10 mg/dL mg/dL (6-20) Creatinine 0.6 mg/dL mg/dL (0.5-0.9) GFR Calculation 110.2 mL/min mL/m in (90-130) Glucose 106 mg/dL mg/dL (65-115) Calculated Osmolal ity 285 mOsm/kg mOsm/ kg (285-295) Calcium 8.7 mg/dL mg/dL (8.5-10.5) Total Bilirubin 0.4 mg/dL mg/dL (0.15-1.2) AST 15 U/L U/L (0-32) ALT 25 U/L U/L (0-33) Alkaline Phosphata se 118 IU/L H IU/L (35-105) Creatine Kinase 86 U/L U/L (26-192) Troponin T Baselin e 6 ng/L ng/L (0-10) Troponin T 120 Min [place] Delta Troponin T Total Protein 6.5 g/dL L g/dL (6.6-8.7) Albumin 3.9 g/dL g/dL (3.5-5.2) Globulin 2.6 g/dL g/dL (1.3-4.6) 08/05/21 08:28 WBC RBC Hgb Hct MCV MCH MCHC RDW Plt Count MPV Neut % (Auto) Lymph % (Auto) [place] % (Auto) Eos % (Auto) Baso % (Auto) Neut # (Auto) Lymph # (Auto) [place] # (Auto) Eos # (Auto) Baso # (Auto) Nucleated RBC % (a uto) Nucleated RBCs # Sodium Potassium Chloride Carbon Dioxide Anion Gap BUN Creatinine GFR Calculation Glucose Calculated Osmolal ity Calcium Total Bilirubin AST ALT Alkaline Phosphata se Creatine Kinase Troponin T Baselin e Troponin T 120 Min [place] 6.00 ng/L ng/L (0-10) Delta Troponin T 0 ABS# ABS# (0-10) Total Protein Albumin Globulin Discharge Plan Discharge Patient Disposition: Home Clinical Impression: Atypical chest pain Condition: Stable Prescriptions: No Action (DME) Sole Supports Qty: 1 RF: 0 (DME) night splint See Rx Instructions .Route .MEDSUPPLY Qty: 1 RF: 0 albuterol sulfate [Ventolin HFA] 90 mcg/actuation HFA aerosol inhaler 2 puff INHALATION Q6H PRN (Reason: Shortness Of Breath) RF: 0 diphenhydramine HCl [Benadryl] 25 mg capsule 25 mg PO TID PRNRF: 0 atorvastatin [Lipitor] 10 mg tablet 40 mg PO DAILY RF: 0 metformin 500 mg tablet 500 mg PO TID RF: 0 allopurinol 100 mg tablet 100 mg PO BID RF: 0 betamethasone dipropionate 0.05 % ointment 1 applic topical BID Qty: 15 RF: 0 clindamycin phosphate 1 % lotion 1 applic TOPICAL BID Qty: 60 RF: 2 furosemide [Lasix] 40 mg tablet 40 mg PO DAILY PRN (Reason: edema) Qty: 90 RF: 3 potassium chloride 20 mEq tablet extended release 20 meq PO DAILY PRN (Reason: Take with Lasix) Qty: 90 RF: 3 diazepam 5 mg tablet 5 mg PO DAILY PRN (Reason: anxiety) Qty: 30 RF: 5 Flovent HFA 110 mcg/actuation HFA aerosol inhaler 1 puff INHALATION BID PRN (Reason: Shortness Of Breath) Qty: 12 RF: 3 doxycycline hyclate 100 mg capsule 100 mg PO BID Qty: 60 RF: 1 fluticasone propionate [Flonase Allergy Relief] 50 mcg/actuation [place],Suspension 2 spray INTRANASAL BID@ RF: 0 ibuprofen 200 mg Tablet 200 mg PO Q6H PRN (Reason: Pain) RF: 0 metoprolol tartrate 25 mg tablet 12.5 mg PO BID@ RF: 0 Discharge Orders: Discharge ED (Routine); Ordered 08/05/21 Ordered By: Maximo Joel Referrals: Modesta Hopson FNP [Primary Care Provider] - Discharge Diet: Usual diet Discharge Activity: Limit activity as instructed Patient Instructions: Opioid Safety Activity Restrictions/Additional Instructions: Case management will make arrangements for you to be scheduled for a Lexiscan sestamibi stress test. Coding Level of Care Code ED Labor Representative for [place] Fwd Exam Detailed
[2021-08-05 07:05] LABS: Basophils # 0.1 10^3/uL (0.0-0.1); Basophils % 0.5 %; Eosinophils # 0.3 10^3/uL (0.0-0.8); Eosinophils % 2.3 %; Hematocrit 44.9 % (37.0-47.0); Lymphocytes # 4.1 10^3/uL (0.8-4.8); Lymphocytes % 32.2 %; Mean Corpuscular HGB Conc 33.4 g/dL (30.0-36.0); Mean Corpuscular Hemoglobin 31.3 pg (28.0-34.0); Mean Corpuscular Volume 93.5 fl (81-99); Monocytes # 0.8 10^3/uL (0.2-0.9); Monocytes % 6.5 %; Neutrophils # 7.48 10^3/uL (1.8-7.7); Neutrophils % 58.3 %; Nucleated Red Blood Cells % 0 %; Platelet Count 317 10^3/cmm (130-400); Red Cell Distribution Width 13.8 % (12.1-15.1); White Blood Count 12.8 10^3/uL (4.0-10.0)
[2021-08-05 07:18] LABS: Alanine Aminotransferase 25 U/L (0-33); Albumin Level 3.9 g/dL (3.5-5.2); Alkaline Phosphatase 118 IU/L (35-105); Anion Gap 15.8 (5-19); Aspartate Amino Transferase 15 U/L (0-32); Blood Urea Nitrogen 10 mg/dL (6-20); Calcium 8.7 mg/dL (8.5-10.5); Carbon Dioxide 21 mmol/L (22-29); Chloride 105 mmol/L (98-107); Creatine Phosphokinase 86 U/L (26-192); Globulin 2.6 g/dL (1.3-4.6); Glomerular Filtration Rate 110.2 mL/min (90-130); Glucose 106 mg/dL (65-115); Osmolality Calculated 285 mOsm/kg (285-295); Potassium 3.8 mmol/L (3.5-5.1); Sodium 138 mmol/L (136-145); Total Bilirubin 0.4 mg/dL (0.15-1.2); Total Protein 6.5 g/dL (6.6-8.7)
[2021-08-05 07:21] LABS: Troponin(5th) Baseline 6 ng/L (0-10)
[2021-08-05 07:32] VITALS: BP 128/79; PULSE 74; RESP 18; O2SAT 97
--- NOTE | 2021-08-05 08:21 | ECG_ITS ---
[facility] Test Date: 2021-08-05 Pat Name: Maria Alejandra Cummings Department: Room: Gender: Female Milieu Technician: : 1980 Requested By: Maximo Ferraro Order Number: [id number] Sue MD: Maegan Valles M.D. Measurements Intervals [place] Rate: 65 P: 36 [place]: 170 QRS: 35 QRSD: 94 T: -8 QT: 413 QTc: 432 Interpretive Statements SINUS RHYTHM NONSPECIFIC T-WAVE ABNORMALITY Compared to ECG 10/19/2015 19:27:42 T-wave abnormality now present Sinus arrhythmia no longer present Electronically Signed On 08-05-2021 16:15:19 USABILITY STRATEGIST by Maegan Valles M.D. [id number]
[2021-08-05 09:21] LABS: Troponin 5 2HR Delta 0 ABS# (0-10)
[2021-08-05 09:31] VITALS: BP 128/79; PULSE 81; RESP 16; O2SAT 99
--- NOTE | 2021-08-05 09:33 | PC.NURSE ---
Pt placed on quality assurance monitor final upon this RN assuming care of pt.
[2021-08-05 10:21] VITALS: BP 123/79; PULSE 82; RESP 17; O2SAT 97
--- NOTE | 2021-08-09 12:24 | DCPLANNER ---
table games manager had message to schedule an out patient stress test for patient. table games manager faxed signed order to centralized scheduling, who call patient with appointment information.
--- NOTE | 2021-09-09 08:23 | DCPLANNER ---
Addendum entered by Little Herzog 10/21/21 12:04: Patient had an out patient stress test - patient did attend appointment. Original Note: Patient has an outpatient stress test scheduled for September at 10:45. Centralized scheduling will call patient with appointment information.
== END 2021-08-05 10:18 | disposition home or self-care (01) ==
PROVIDERS: Emergency Provider Family Medicine; PCP Nurse Practitioner Family
DX: R07.89 Other chest pain (principal); F17.210 Nicotine dependence, cigarettes, uncomplicated
CPT/HCPCS: 71045; 80053; 82550; 84484; 85025; 93005; 99284

== ENCOUNTER 2021-10-06 08:56 | Outpatient (CLI) | payer MEDICARE, MEDICAID, SELFPAY ==
--- NOTE | 2021-10-06 09:30 | MR_ITS ---
WS: [id number] MRI LUMBAR SPINE NONCONTRAST HISTORY: RT LEG NUMBNESS/WEAKNESS;LUMBAR RADICULOPATHY COMPARISON: 02/28/2012 TECHNIQUE: Sagittal and axial multisequence imaging is submitted. At T10-11 and T11-12 there are focal disc and osteophytes encroaching upon the ventral thecal sac. Sl ightly greater contact on the ventral thecal sac at the T10-11 level. This was described on the prior study from 2012 but mildly progressed. There is slight posterior deformity of the cord. Mild disc de siccation and narrowing 8 2 these levels. Normal lumbar alignment with no compression fractures or marrow edema. Disc spaces and vertebral body heights are well-preserved. Conus terminates normally at L1. L1-L2: Normal. L2-L3: Normal. L3-L4: Mild ligamentum flavum and facet arthritis. Very mild encroachment upon the ventral thecal sac with no stenosis. L4-L5: Mild ligamentum flavum and facet arthritis with fluid in the facet joints. Mild annular disc b ulge but no stenosis. L5-S1: Small central disc protrusion has decreased in size since the prior study. There is mild conta ct on the thecal sac. Very minimal contact on the RIGHT S1 nerve root. No displacement. Small amount of fluid in the facet joints. Normal size anteverted uterus. Small nabothian cysts. MR/MR lumbar spine wo con* [id number] IMPRESSION: 1. T10-11: Central focal disc protrusion and small osteophytes contact the tho racic cord with displacement. Mild progression as compared to 2012. 2. Smaller central disc protrusion at T11-12 approaches but does not directly contact the thoracic cord. 3. Small central disc protrusion at L5-S1 with minimal contact on the RIGHT S1 nerve root but no displacement. This disc has slightly decreased in size since 2012.
== END 2021-10-06 08:57 | disposition home or self-care (01) ==
LOC: RADSHAW 09:08
PROVIDERS: PCP Nurse Practitioner Family; Visit Provider Family Medicine
DX: R20.0 Anesthesia of skin (principal); R53.1 Weakness; M54.16 Radiculopathy, lumbar region; M51.24 Other intervertebral disc displacement, thoracic region; M51.27 Other intervertebral disc displacement, lumbosacral region
CPT/HCPCS: 72148

== ENCOUNTER 2021-10-14 07:16 | Outpatient (CLI) | payer MEDICARE, MEDICAID, SELFPAY ==
[2021-10-14 07:41] VITALS: BMI 42.0
--- NOTE | 2021-10-14 08:05 | ECG_ITS ---
[facility] Test Date: 2021-10-14 Pat Name: Maria Alejandra Cummings Department: Room: Gender: Female Information Strategist: Hellen [place] : 1980 Requested By: Maximo Ferraro Order Number: [id number] Sue MD: Maegan Valles M.D. Interpretive Statements NAME OF STUDY: LEXISCAN SESTAMIBI STRESS TEST INDICATION: Chest Pain PROCEDURE: At the baseline, the blood pressure was 123/80 mm Hg with a heart rate of 59 bpm. The electrocardiogram showed sinus rhythm with artifact. Non specific ST-T wave changes in inferolateral leads. The Lexiscan was infused over a period of 20 seconds. A total of 0.4 milligrams of Lexiscan was infused. The stress phase was continued for a total of 5 minutes. Heart rate at the end of the stress phase was 84 bpm with a blood pressure of 127/84 mm Hg. The EKG at the peak infusion revealed no significant ST-T wave changes. Sestamibi was injected 20 seconds after the Lexiscan infusion. Blood pressure at the end of the recovery phase was 130/83 mm Hg with a heart rate of 85 beats per minute. CONCLUSION: 1. No significant EKG changes with the LexiScan infusion. 2. No LexiScan induced chest pain or cardiac arrhythmia. 3. Normal blood pressure and heart rate response. 4. Sestamibi/sestamibi perfusion scan pending; see separate report. Electronically Signed On 11-09-2021 6:44:21 FOOD SERVICE CLERK by Maegan Valles M.D. [id number]
--- NOTE | 2021-10-14 08:06 | NMCV_ITS ---
NM rachel perf SPECT r/s* [id number] Maria Alejandra Cummings Age: 41 Gender: F : 1980 Exam Date: 10/14/2021 08:06 Ordering Phys: Maximo Joel DO Technologist: HOMER Victor Exam Location: [facility] [place] Indications: CHEST PAIN STRESS TEST Please [facility] IMAGE PROTOCOL Rest/Stress 1 Lexiscan Day Radiopharmaceutical Dose (mCi) Administration Site Administered by Rest: Tc-99m 10.9 IV Nancy Fan, INTERNATIONAL ORGANIZER Sestamibi Stress:Tc-99m 32.9 IV Nancy Fan, INTERNATIONAL ORGANIZER Sestamibi Rest: 14-Oct-2021 60 Discovery 630 Stress: 14-Oct-2021 30 Discovery 630 0.4mg Lexiscan. Images obtained in supine and prone position. SPECT RESULTS Technical Quality: Excellent Raw Data Analysis: Normal Image Corrections: No attenuation or motion correction applied Summed Stress Score: 0 Summed Rest Score: 5 Summed Difference Score: 0 PERFUSION FINDINGS Small size perfusion apical septal, apical anterior and apical morales on rest images with improved tracer uptake on stress images. This is suggestive of breast attenuation artifact. FUNCTIONAL RESULTS (calculated via Gated SPECT) Stress Image LV EF (%): 70 Stress EDV (mL):105 TID: 0.99 Stress ESV (mL):32 FUNCTIONAL FINDINGS: The left ventricle is normal in size. Transient Ischemia Dilatation of 0.99. There is normal left ventricular systolic function. The left ventricular ejection fraction is normal with a value of 70%. There is normal left ventricular wall thickening with no regional wall motion abnormality. Normal end-diastolic and end-systolic volumes. IMPRESSIONS 1. Myocardial perfusion imaging is normal. Breast attenuation artifact noted on apical omrales. 2. Overall left ventricular systolic function is normal without regional wall motion abnormalities. 3. The left ventricular ejection fraction is normal with a value of 70%. 4. Scan indicates low risk for cardiac events. Maegan Valles MD (Electronically Signed) Final Date: 14 October 2021 13:52 S
[2021-10-14] MEDS: regadenoson 0.4 Mg/5 ml Syringe IVP (09:26)
[2021-10-14 09:27] VITALS: BP 130/83; PULSE 86
== END 2021-10-14 07:17 | disposition home or self-care (01) ==
LOC: CDL 07:18
PROVIDERS: PCP Family Medicine; Visit Provider Family Medicine
DX: R07.9 Chest pain, unspecified (principal); R06.02 Shortness of breath
CPT/HCPCS: 78452; 93017; A9500; J2785

== ENCOUNTER → 2021-10-17 11:15 | Outpatient (BNVA) | payer MEDICARE, MEDICAID, SELFPAY | PROVIDERS: PCP Family Medicine; Visit Provider Psychiatry & Neurology Psychiatry | DX: F33.42 Major depressive disorder, recurrent, in full remission (principal); F42.2 Mixed obsessional thoughts and acts | CPT/HCPCS: 99214 ==

== ENCOUNTER → 2021-10-27 09:46 | Outpatient (BNVA) | payer MEDICARE, MEDICAID, SELFPAY | PROVIDERS: PCP Family Medicine; Referring Provider Family Medicine; Visit Provider Orthopaedic Surgery | DX: M54.50 Low back pain, unspecified (principal); M54.2 Cervicalgia | CPT/HCPCS: 72050; 72110 ==

== ENCOUNTER 2021-10-31 13:24 | Outpatient (CLI) | payer MEDICARE, MEDICAID, SELFPAY ==
--- NOTE | 2021-10-31 13:35 | US_ITS ---
WS: [id number] ULTRASOUND LEFT BREAST HISTORY: 6 MO F/U ABNORMAL MAMMOGRAM LT BREAST COMPARISON: Ultrasound 03/31/2021 and prior mammogram 03/07/2021 and 03/31/2021 TECHNIQUE: 2-D and Doppler. Very small hypoechoic nodule LEFT breast at 3:00, 4 cm from the nipple measures 5 x 5.4 mm. No increa se in size. This is very benign in appearance. US/US breast LT limited* [id number] IMPRESSION: BI-RADS: 3-Probably Benign FOLLOW-UP: 6 Month Follow-up Patient to return for screening mammogram in February 2022. Additional imaging foll ow-up of the vague hypoechoic nodule in the LEFT breast at 3:00 should be perfo rmed at that time with possible ultrasound.
== END 2021-10-31 13:25 | disposition home or self-care (01) ==
LOC: RADSHAW 13:30
PROVIDERS: PCP Family Medicine; Visit Provider Family Medicine
DX: R92.8 Other abnormal and inconclusive findings on diagnostic imaging of breast (principal); N63.25 Unspecified lump in the left breast, overlapping quadrants
CPT/HCPCS: 76642

== ENCOUNTER → 2021-11-03 12:55 | Outpatient (BNVA) | payer MEDICARE, MEDICAID, SELFPAY | PROVIDERS: PCP Family Medicine; Referring Provider Orthopaedic Surgery; Visit Provider Anesthesiology Pain Medicine | DX: M47.816 Spondylosis without myelopathy or radiculopathy, lumbar region (principal); M51.36 Other intervertebral disc degeneration, lumbar region; M54.2 Cervicalgia; M79.604 Pain in right leg; F17.210 Nicotine dependence, cigarettes, uncomplicated | CPT/HCPCS: 99204 ==

== ENCOUNTER → 2021-11-17 08:45 | Outpatient (BNVA) | payer MEDICARE, MEDICAID, SELFPAY | PROVIDERS: PCP Family Medicine; Visit Provider Counselor Mental Health | DX: F33.42 Major depressive disorder, recurrent, in full remission (principal); F42.2 Mixed obsessional thoughts and acts | CPT/HCPCS: 90834 ==

== ENCOUNTER → 2021-11-22 13:39 | Outpatient (BNVA) | payer MEDICARE, MEDICAID, SELFPAY | PROVIDERS: PCP Family Medicine; Visit Provider Anesthesiology Pain Medicine | DX: M54.16 Radiculopathy, lumbar region (principal); F17.210 Nicotine dependence, cigarettes, uncomplicated | CPT/HCPCS: 64483; 64484; J1100; J3490 ==

== ENCOUNTER 2021-11-28 09:23 | Outpatient (CLI) | payer MEDICARE, MEDICAID, SELFPAY ==
--- NOTE | 2021-11-28 09:35 | US_ITS ---
WS: [id number] Pelvic ultrasound, 11/28/2021 Clinical Data: MENORRHAGIA Comparison: Pelvic ultrasound, 09/18/2012. Findings: The uterus measures 8.4 cm x 4.9 cm x 4.6 cm. There may be a 1.70 x 2.09 x 2.44 cm uterine fibroid. The endometrium is 0.5 cm. No intrauterine or abnormal intrauterine mass is seen. A scar fr om a section is noted. The left ovary is not identified. The right ovary measures 4.3 cm x 3.8 cm x 3.5 cm with a 2.58 x 2.93 x 3.32 cm simple cyst. There is an adjacent complex cyst to the larger cyst measuring 0.46 x 0.49 x 0.67 cm. No fluid is seen in the cul-de-sac. US/US transvaginal [id number] Impression: 1. Probable uterine fibroid. 2. Scar from previous . 3. Simple cyst with greatest diameter of 2.93 cm and an adjacent complex cyst o f 0.67 cm adjacent to the right ovary.
== END 2021-11-28 09:24 | disposition home or self-care (01) ==
LOC: RAD 09:26
PROVIDERS: PCP Family Medicine; Visit Provider Family Medicine
DX: N92.0 Excessive and frequent menstruation with regular cycle (principal); N83.299 Other ovarian cyst, unspecified side; N83.291 Other ovarian cyst, right side
CPT/HCPCS: 76830

== ENCOUNTER → 2021-12-07 12:44 | Outpatient (BNVA) | payer MEDICARE, MEDICAID, SELFPAY | PROVIDERS: PCP Family Medicine; Visit Provider Anesthesiology Pain Medicine | DX: F17.210 Nicotine dependence, cigarettes, uncomplicated (principal); M54.16 Radiculopathy, lumbar region | CPT/HCPCS: 64483; 64484; J1100; J3490 ==

== ENCOUNTER 2021-12-12 11:48 | Outpatient (CLI) | payer MEDICARE, MEDICAID, SELFPAY ==
--- NOTE | 2021-12-12 11:56 | CT_ITS ---
WS: [id number] CT ABDOMEN AND PELVIS WITH AND WITHOUT CONTRAST HISTORY: RLQ ABDOMINAL PAIN TECHNIQUE: Unenhanced 5 mm axial imaging first performed through the abdomen. Post contrast imaging t hrough the abdomen and pelvis. Oral contrast has been provided. Sagittal and coronal reformats are s ubmitted. All CT scans at [facility] use at least one of these dose optimization techniques: automated exposure control; mA and/or kV adjustment per patient size (includes targeted exams where d ose is matched to clinical indication); or iterative reconstruction. CONTRAST: Omnipaque 300; 95 mL IV. DLP: 2465.59 mGy.cm COMPARISON: 07/06/2021 Lung bases are clear. No cardiomegaly. Small hiatal hernia. Mild diffuse hepatic steatosis. Liver is moderately enlarged. No bile duct dilatation. Normal size pa ncreas. Normal adrenal glands. Prior cholecystectomy. No renal stone or obstruction. Exophytic cyst m easuring 10 mm from the RIGHT kidney is reidentified. No increase in size. No solid masses. Normal ao rta, celiac axis and SMA. Portal vein is not opacified but this is probably due to the early imaging. RIGHT adrenal gland is normal. Again noted is an 18 mm LEFT adrenal adenoma. No ascites or adenopathy. No GI tract obstruction. Appendix is normal. Nondistended urinary bladder. Uterus is midline. There is a well-rounded mass in the midline and slig htly to the LEFT measuring 5.3 x 4.2 cm. Hounsfield units are low suggesting this is a LEFT ovarian c yst. This was not identified on a recent ultrasound of the pelvis probably due to its position above the uterus. Small follicles within the RIGHT ovary. Bone island in the RIGHT femoral head. CT/CT abdomen pelvis wo/w [id number] IMPRESSION: 1. Normal appendix. 2. No GI tract obstruction. 3. Well-circumscribed mass in the midline just above the urinary bladder exten ding to the LEFT of midline measures 5.3 x 4.2 cm. Most consistent with an ovar yuki cyst. Not seen on a recent ultrasound due to its position above the uterus. 4. No renal obstruction or calcification. 5. Prior cholecystectomy. 6. Hepatic steatosis. 7. Stable LEFT adrenal adenoma.
[2021-12-12] MEDS: iohexol 300 mg/mL 50 mL Btl PO (12:55)
[2021-12-12] MEDS: iohexol 300 mg/mL 100 mL Btl IV (12:56)
== END 2021-12-12 11:49 | disposition home or self-care (01) ==
LOC: RAD 11:51
PROVIDERS: PCP Family Medicine; Visit Provider Family Medicine
DX: R10.31 Right lower quadrant pain (principal); Z90.49 Acquired absence of other specified parts of digestive tract; K76.0 Fatty (change of) liver, not elsewhere classified; D35.02 Benign neoplasm of left adrenal gland
CPT/HCPCS: 74178

== ENCOUNTER → 2021-12-22 14:06 | Outpatient (BNVA) | payer MEDICARE, MEDICAID, SELFPAY | PROVIDERS: PCP Family Medicine; Visit Provider Anesthesiology Pain Medicine | DX: M47.816 Spondylosis without myelopathy or radiculopathy, lumbar region (principal); M51.36 Other intervertebral disc degeneration, lumbar region; M54.2 Cervicalgia; F17.210 Nicotine dependence, cigarettes, uncomplicated; M79.604 Pain in right leg | CPT/HCPCS: 99213 ==

== ENCOUNTER → 2022-01-09 08:56 | Outpatient (BNVA) | payer MEDICARE, MEDICAID, SELFPAY | PROVIDERS: PCP Family Medicine; Referring Provider Orthopaedic Surgery; Visit Provider Specialist | DX: R20.0 Anesthesia of skin (principal); R20.2 Paresthesia of skin; F17.210 Nicotine dependence, cigarettes, uncomplicated | CPT/HCPCS: 95909 ==

== ENCOUNTER → 2022-01-10 15:47 | Outpatient (BNVA) | payer MEDICARE, MEDICAID, SELFPAY | PROVIDERS: PCP Family Medicine; Visit Provider Obstetrics & Gynecology | DX: N83.202 Unspecified ovarian cyst, left side (principal) | CPT/HCPCS: 76830; 76856 ==

== ENCOUNTER 2022-01-20 09:14 | Outpatient (CLI) | payer MEDICARE, MEDICAID, SELFPAY ==
--- NOTE | 2022-01-20 10:32 | XR_ITS ---
WS: [id number] Chest 2 views, 01/20/2022 Clinical Data: COUGH Comparison: Portable chest, 08/05/2021. Findings: No nodules, masses or effusions are seen. The heart is normal. The pulmonary vascularity is not increased. No pneumonia or pneumothorax is seen. XR/XR chest 2V* 22303 Impression: Negative chest.
== END 2022-01-20 09:15 | disposition home or self-care (01) ==
PROVIDERS: PCP Family Medicine; Visit Provider Family Medicine
DX: F33.42 Major depressive disorder, recurrent, in full remission (principal); F42.2 Mixed obsessional thoughts and acts
CPT/HCPCS: 71046; 99213

== ENCOUNTER → 2022-02-24 11:39 | Outpatient (BNVA) | payer MEDICARE, MEDICAID, SELFPAY | PROVIDERS: PCP Family Medicine; Visit Provider Counselor Mental Health | DX: F33.42 Major depressive disorder, recurrent, in full remission (principal); F42.2 Mixed obsessional thoughts and acts | CPT/HCPCS: 90834 ==

== ENCOUNTER → 2022-04-03 11:10 | Outpatient (BNVA) | payer MEDICARE, MEDICAID, SELFPAY | PROVIDERS: PCP Family Medicine; Visit Provider Obstetrics & Gynecology | DX: N92.0 Excessive and frequent menstruation with regular cycle (principal); N83.201 Unspecified ovarian cyst, right side; Z01.812 Encounter for preprocedural laboratory examination; R10.2 Pelvic and perineal pain | CPT/HCPCS: 80053; 81000; 81025; 85025; 86850; 86900 ==

== ENCOUNTER → 2022-04-04 10:54 | Outpatient (BNVA) | payer MEDICARE, MEDICAID, SELFPAY | PROVIDERS: PCP Family Medicine; Visit Provider Anesthesiology Pain Medicine | DX: M47.816 Spondylosis without myelopathy or radiculopathy, lumbar region (principal); M51.36 Other intervertebral disc degeneration, lumbar region; M54.2 Cervicalgia; M79.604 Pain in right leg; F17.210 Nicotine dependence, cigarettes, uncomplicated | CPT/HCPCS: 99214 ==

== ENCOUNTER 2022-04-06 10:31 | Day surgery (SDC) | payer MEDICARE, MEDICAID, SELFPAY ==
[2022-04-04 09:40] VITALS: BMI 43.4
--- NOTE | 2022-04-04 10:24 | P.ANESASSM_ITS ---
Pre-Anesthetic Assessment Height/Weight: Height 1.63 m Weight 114.759 kg Operation Date: 04/06/22 08:30 Proposed Procedures p Diagnostic laparoscopy 20496, Hysteroscopic polypectomy with Myosure 20375,N93.9,R10.0<N84.0(Not Applicable) - Nirav Beasley MD s Hysteroscopy w/ Myosure(Not Applicable) - Nirav Beasley MD s Dilation And Curettage (D&C)(Not Applicable) - Nirav Beasley MD Familial anesthetic complications: none Was Beta Luis taken within 24 hours: Yes Was Clonidine taken within 24 hours: N/A Social Tobacco and No alcohol Exam alert, oriented x 3 and regular rate & rhythm Airway Submandibular: within normal limits Cervical ROM: within normal limits Mallampati: Class II Dentition: chipped Comments: Comments: missing several Pulmonary Asthma and Chronic Obstructive Pulmonary Disease CV/HEM Hypertension Metabolic Hyperlipidemia and Morbid Obesity Musc/skel Lower Back Pain Neuropsych Anxiety and Depression Anesthetic Plan ASA status: 3 Anesthesia: General Medications/Allergies Home Medications Medication Instructions Recorded Confirmed Last Taken Type fluticasone propionate 50 2 spray INTRANASAL BID@0600,199910/03/19 04/04/22 10/03/19 History mcg/actuation nasal spray,suspension (Flonase Allergy Relief) Sole Supports #1 each 01/22/20 04/03/22 Unknown Rx night splint #1 ea 05/03/20 04/03/22 Unknown Rx albuterol sulfate 90 mcg/actuation 2 puff INHALATION Q6H PRN 07/05/20 04/04/22 08/26/20 History aerosol inhaler (Ventolin HFA) ibuprofen 200 mg tablet 200 mg PO Q6H PRN 08/27/20 04/04/22 04/03/22 History diphenhydramine HCl 25 mg capsule 25 mg PO TID PRN 08/30/20 04/04/22 Unknown History (Benadryl) clindamycin phosphate 1 % lotion 1 applic TOPICAL BID #60 ml 10/26/20 04/04/22 Unknown Rx furosemide 40 mg tablet (Lasix) 40 mg PO DAILY PRN #90 tab 12/01/20 04/04/22 Unknown Rx potassium chloride 20 mEq 20 meq PO DAILY PRN #90 tab 12/01/20 04/04/22 Unknown Rx tablet,extended release metoprolol tartrate 25 mg tablet 12.5 mg PO BID@0600,2000 tab 12/24/20 04/04/22 Unknown History allopurinol 100 mg tablet 100 mg PO BID 06/29/21 04/04/22 Unknown History atorvastatin 10 mg tablet (Lipitor) 40 mg PO DAILY tab 07/19/21 04/04/22 Unknown History cyclobenzaprine 5 mg tablet 5 mg PO TID PRN 11/03/21 04/04/22 Unknown History terbinafine HCl 250 mg tablet 250 mg PO DAILY tab 12/30/21 04/04/22 Unknown History diazepam 5 mg tablet 5 mg PO DAILY PRN #30 tab 01/31/22 04/04/22 Unknown Rx fluticasone propionate 110 2 puff INHALATION BID PRN g 03/23/22 04/04/22 Unknown History mcg/actuation HFA aerosol inhaler (Flovent HFA) metformin 500 mg tablet 500 mg PO BID tab 04/03/22 04/04/22 Unknown History Allergies Allergy/AdvReac Type Severity Reaction Status Date / Time Cephalosporins Allergy Mild ALGY-Hives Verified 04/03/22 10:38 clindamycin Allergy ALGY-Hives Verified 04/03/22 10:38 morphine Allergy ALGY-Anaphy Verified 04/03/22 10:38 laxis Quinolones Allergy ALGY-Hives Verified 04/03/22 10:38 salicylates Allergy ALGY-Hives Verified 04/03/22 10:38 Sulfa (Sulfonamide Allergy ALGY-Anaphy Verified 04/03/22 10:38 Antibiotics) laxis [facility] Anesthesia Medical History (Updated 01/16/22 @ 04:58 by Nirav Beasley MD) delivery delivered Enrolled in chronic care management Major depression, recurrent, full remission Nicotine dependence, cigarettes, with unspecified nicotine-induced disorders Obsessive compulsive disorder Psychiatric care Recurrent UTI Urolithiasis Surgical History (Updated 01/16/22 @ 04:54 by Nirav Beasley MD) H/O section x2 H/O lithotripsy S/P cholecystectomy S/P tubal ligation Family History Mother Hyperlipidemia Hypertension Grandmother Stroke maternal Denies family history of Colon cancer Ovarian cancer Diabetes Clotting disorder Heart disease Breast CA Anesthesia complication Bleeding disorder Uterine cancer Thyroid condition Social History Smoking and tobacco status: current every day smoker cigarettes Packs smoked per day: 1 Years cigarettes smoked: 23 Alcohol intake: current Alcohol intake frequency: holidays/special occasions only History of recent travel: No Female Reproductive History Date of last menstrual period: 03/12/22 Para: 2 Data Anesthesia Cardiac Studies: Sestamibi Stress Test (Cardiology) 10/14/21
[2022-04-06] VITALS (11 sets, daily range): BP systolic 126–143; BP diastolic 74–114; PULSE 52–67; RESP 15–24; TEMP 36.4–36.6; O2SAT 91–100
[2022-04-06] MEDS: sodium chloride 0.9% 1,000 ML 30 ML IV (11:00)
[2022-04-06] MEDS: scopolamine 1.5 Patch 1 PATCH TRANSDERMA (11:06)
[2022-04-06] MEDS: sodium chloride 0.9% 500 ML IV (11:12)
[2022-04-06 11:18] LABS: Glucose Point of Care 84 mg/dL (70-110)
[2022-04-06] MEDS: ondansetron 2 mg/ML SDV 2 mL 4 MG IVP (11:44)
[2022-04-06] MEDS: diphenhydrAMINE 50 mg/mL SDV 1mL 12.5 MG IVP (11:45)
[2022-04-06] MEDS: vancomycin 1,000 MG in sodium chloride 0.9% 250 ML 250 MG IV (11:58)
--- NOTE | 2022-04-06 11:58 | W.PM.OPSUD ---
Surgery/Procedure H&P Update DATE OF PROCEDURE: April 06, 2022 DATE H&P PERFORMED: 04/03/22 H&P UPDATE INFORMATION: I have reviewed H&P completed within last 30 days, I have examined patient prior to procedure and No changes to prior documentation PREOP DIAGNOSIS: Menorrhagia, pelvic pain PLANNED PROCEDURE: Operation Date: 04/06/22 12:15 Proposed Procedures p Diagnostic laparoscopy 25563, Hysteroscopic polypectomy with Myosure 68590,N93.9,R10.0<N84.0(Not Applicable) - Nirav Beasley MD s Hysteroscopy w/ Myosure(Not Applicable) - Nirav Beasley MD s Dilation And Curettage (D&C)(Not Applicable) - Nirav Beasley MD
--- NOTE | 2022-04-06 11:59 | W.PM.OPSUD ---
Surgery/Procedure H&P Update DATE OF PROCEDURE: April 06, 2022 DATE H&P PERFORMED: 04/03/22 H&P UPDATE INFORMATION: I have reviewed H&P completed within last 30 days, I have examined patient prior to procedure and No changes to prior documentation PREOP DIAGNOSIS: Menorrhagia, pelvic pain PLANNED PROCEDURE: Operation Date: 04/06/22 12:15 Proposed Procedures p Diagnostic laparoscopy 13267, Hysteroscopic polypectomy with Myosure 76302,N93.9,R10.0<N84.0(Not Applicable) - Nirav Beasley MD s Hysteroscopy w/ Myosure(Not Applicable) - Nirav Beasley MD s Dilation And Curettage (D&C)(Not Applicable) - Nirav Beasley MD
--- NOTE | 2022-04-06 12:02 | ANES.PAUD2 ---
Pre-Anesthetic Update Pre-Anesthetic Assessment: Date of Surgery/Procedure: 04/06/22 Preop Diagnosis: Menorrhagia, pelvic pain Proposed Procedure: Operation Date: 04/06/22 12:15 Proposed Procedures p Diagnostic laparoscopy 81664, Hysteroscopic polypectomy with Myosure 84699,N93.9,R10.0<N84.0(Not Applicable) - Nirav Beasley MD s Hysteroscopy w/ Myosure(Not Applicable) - Nirav Beasley MD s Dilation And Curettage (D&C)(Not Applicable) - Nirav Beasley MD Any changes to Pre-Anesthetic Assessment?: No Last Intake: Intake Last Liquid Date 04/05/22 Last Liquid Time 00:00 Last Solid Date 04/05/22 Last Solid Time 19:00 Vitals: Temperature 97.5 F L 04/06/22 10:40 Temperature Source Temporal Artery S can 04/06/22 10:40 Pulse Rate 67 04/06/22 10:40 Respiratory Rate 18 04/06/22 10:40 Blood Pressure 139/91 04/06/22 10:40 Blood Pressure Malu n 107 04/06/22 10:40 Pulse Oximetry 96 04/06/22 10:40 Oxygen Delivery Me thod 04/06/22 10:54 Exam: Pre-Anes Outpt Exam: alert, oriented x 3, clear to auscultation bilaterally and regular rate & rhythm Cardiac Studies: Sestamibi Stress Test (Cardiology) 10/14/21
--- NOTE | 2022-04-06 15:34 | P.OP_ITS ---
Operative Report Date of procedure: April 06, 2022 Pre-op diagnosis: Preop Diagnosis Menorrhagia, pelvic pain Post-op diagnosis: Same as above Post-op findings: Omental adhesions to the anterior wall. Right ovarian cyst. Proliferative endometrium. Procedure done: Diagnostic laparoscopy. Lysis of adhesions. Right ovarian cystectomy. Hysteroscopy with dilation and curettage via MyoSure Specimens removed/disposition: Right ovarian cyst fluid. Right ovarian cyst wall. Endometrial curettings Surgeon: Nirav Beasley MD Estimated blood loss (mL): 5 IV fluids (mL): 400 Urine output (mL): 200 Complications: None Procedure: DESCRIPTION OF PROCEDURE: After informed consent, the patient was taken to the operating room where general anesthesia was administered. The patient was examined under anesthesia and found to have a normal uterus with normal adnexa. She was placed in the dorsal lithotomy position and prepped and draped in sterile fashion. Pre- Procedure Time-Out verifying the correct patient identity, correct procedure verified with consent, correct site and side, correct patient position, availability of correct implants and any special equipment or requirements was performed and acknowledge by the OR team. A weighted speculum was placed in the vagina, and the anterior lip of cervix was grasped with the single toothed tenaculum. A uterine manipulator was advanced into the endocervical. Tenaculum was removed after uterine manipulator was secured. The speculum was removed from the vagina. An intraumbilical incision was made with a scalpel. While tenting up on the abdomen, a Verres needle with sleeve was admitted into the intra-abdominal cavity. A saline drop test was performed and noted to be within normal limits. Pneumoperitoneum was attained with 4 liters of carbon dioxide. The Verres needle was removed. A 5 mm trocar and sleeve were admitted into the abdomen and laparoscopic confirmation of location was achieved, A second incision was made 3 cm above the symphysis pubis, and a 5 mm trocar and sleeve were admitted into the abdomen under direct, laparoscopic visualization without complication. A survey revealed omental adhesions to the anterior abdominal wall. A 5 mm blunt probe was advanced through the second trocar sleeve, and light manipulation of ovaries and uterus to assess the posterior aspects was performed. The pelvic survey shows normal uterus and left adnexa. Right ovary shows simple cyst approximately 3 to 4 cm. Using the 5 mm Voyant device the anterior lower abdominal omental adhesions were lysed without complication. Then attention was brought to the right ovary and a right ovarian cystectomy was performed. The ovarian cyst was completely dissected via hydrodissection. Hemostasis within the bed of the ovary was a control by electrocoagulation of small bleeders. The cyst fluid was aspirated and sent to pathology and the cyst wall was excised. The ovarian incision edges were cauterized with the Voyant device to control small bleeding. The carbon dioxide was allowed to escape from the abdomen. The instruments were removed, and skin closed with 3-O Monocryl and Dermabond. The instruments were removed from the vagina, and excellent hemostasis was noted. Then proceeded to performe the hysterocopy with D&C via myosure. A sterile weight speculum was placed in the vagina. The uterus was then gently sounded to 7 cm, and the cervix was dilated. The 0 degrees MyoSure hysteroscope was advanced gently to the uterine fundus while visualizing the monitor. Survey of the uterine cavity showed: Proliferative endometrium, the fundus shows normal proliferative endometrium; left ostium was visualized, and lateral wall with proliferative endometrium; right ostium visualized, and lateral wall with proliferative endometrium; anterior and posterior morales are with proliferative endometrium; endocervical canal is normal. The MyoSure device was advanced and the direct visualization the endometrium was morcellated without complication. At the end of morcellation the fluid deficit was 370 mL and was estimated at approximately 200 mL were on the floor. There was minimal bleeding noted and the tenaculum removed with goad hemostasis noted. The patient tolerated the procedure well. The patient was taken to the recovery area in stable condition.
[2022-04-06] MEDS: fentaNYL 50 mcg/mL INJ 2mL IVP (15:55)
--- NOTE | 2022-04-06 17:19 | ANE.PACU2 ---
Inpatient post-anesthesia follow up: Airway intact: Yes Vital signs: Temperature 98 F Pulse Rate 63 Respiratory Rate 17 Blood Pressure 134/82 Pulse Oximetry 99 Oxygen Delivery Me thod Room Air Oxygen Flow Rate 8 Fraction of Inspir ed Oxygen Hydration adequate: Yes Nausea and vomiting: No Pain level: 2 Mental status: Baseline
[2022-04-10 20:46] LABS: Cyto Order Verification Order Verified
== END 2022-04-06 17:10 | disposition home or self-care (01) ==
PROVIDERS: PCP Family Medicine; Visit Provider Obstetrics & Gynecology
PROC: (CPT 49320; principal; 2022-04-06 12:15)
PROC: 0UDB8ZZ Extraction of Endometrium, Via Natural or Artificial Opening Endoscopic (ICD-10-PCS; CPT 58558; 2022-04-06 12:15)
PROC: (CPT 58120; 2022-04-06 12:15)
PROC: (CPT 58558; 2022-04-06 12:15)
PROC: (CPT 58558; 2022-04-06 12:15)
PROC: (CPT 58662; 2022-04-06 12:15)
DX: N83.201 Unspecified ovarian cyst, right side (principal); K66.0 Peritoneal adhesions (postprocedural) (postinfection); J44.9 Chronic obstructive pulmonary disease, unspecified; I10 Essential (primary) hypertension; E78.5 Hyperlipidemia, unspecified; E66.01 Morbid (severe) obesity due to excess calories; Z68.41 Body mass index [BMI] 40.0-44.9, adult; F41.9 Anxiety disorder, unspecified; F32.A Depression, unspecified
CPT/HCPCS: 58558; 58662; 36416; 81025; 82962; 88108; 88304; 88305; J1100; J1200; J2250; J2405; J2704; J2710; J3010; J3370; J3490; J7030; J7040; J7050

== ENCOUNTER 2022-04-13 07:44 | Outpatient (CLI) | payer MEDICARE, MEDICAID, SELFPAY ==
--- NOTE | 2022-04-13 07:54 | MM_ITS ---
WS: [id number] DIAGNOSTIC BILATERAL DIGITAL BREAST TOMOSYNTHESIS MAMMOGRAPHY WITH CAD LEFT breast ultrasound, limited HISTORY: 6 MO F/U ABNORMAL MAMMO COMPARISON: 03/31/2021 and 03/07/2021 and 10/31/2021 TECHNIQUE: Bilateral craniocaudad, mediolateral oblique, and mediolateral views are submitted with to mosmagenesis and SM. Spot compression views LEFT CC and MLO. Computer aided detection utilized. Breast composition: There are scattered areas of fibroglandular density. Slightly lobulated asymmetry persists in the LEFT breast at a middle depth at 3-4 o'clock. No interval increase in size. The maurizio ining breasts are negative. LEFT breast ultrasound, limited. Ultrasound at 3:00 identifies the mildly complex nodule measuring 5 x 4 x 5 mm. No increase in size. No increased vascularity. MM/[place] [id number] IMPRESSION: BI-RADS: 4-Suspicious Finding-Biopsy Should Be Considered FOLLOW UP: Biopsy Recommended The nodule has not significantly increased in size since 03/07/2021 but this is not a simple cyst. Although the measurements have not significantly increased i n mass appears to be more solid in appearance and slightly more lobulated. This may be a benign fibroadenoma or benign tumor. Also this mass was not present i n 2012. Recommend ultrasound-guided core needle biopsy LEFT breast mass.
== END 2022-04-13 07:45 | disposition home or self-care (01) ==
LOC: RAD 07:45
PROVIDERS: PCP Family Medicine; Visit Provider Family Medicine
DX: M79.651 Pain in right thigh (principal); M51.36 Other intervertebral disc degeneration, lumbar region; R92.8 Other abnormal and inconclusive findings on diagnostic imaging of breast; N63.25 Unspecified lump in the left breast, overlapping quadrants
CPT/HCPCS: 76642; 77062; 95860; 99202

== ENCOUNTER 2022-04-18 15:42 | Outpatient (CLI) | payer MEDICARE, MEDICAID, SELFPAY ==
[2022-04-18 16:33] LABS: Basophils # 0.1 10^3/uL (0.0-0.1); Basophils % 0.6 %; Eosinophils # 0.3 10^3/uL (0.0-0.8); Hematocrit 45.3 % (37.0-47.0); Hemoglobin 15.3 g/dL (11.5-15.3); Lymphocytes % 32.5 %; Mean Corpuscular HGB Conc 33.8 g/dL (30.0-36.0); Mean Corpuscular Hemoglobin 31.2 pg (28.0-34.0); Mean Corpuscular Volume 92.4 fl (81-99); Mean Platelet Volume 10.1 fL (7.4-10.4); Monocytes # 1.1 10^3/uL (0.2-0.9); Monocytes % 7.4 %; Neutrophils # 8.76 10^3/uL (1.8-7.7); Neutrophils % 57.2 %; Nucleated Red Blood Cells % 0 %; Platelet Count 373 10^3/cmm (130-400); White Blood Count 15.3 10^3/uL (4.0-10.0)
[2022-04-18 16:37] LABS: LAB Peripheral Smear Sent for Review
== END 2022-04-18 15:43 | disposition home or self-care (01) ==
LOC: LAB 15:45
PROVIDERS: PCP Family Medicine; Visit Provider Family Medicine
DX: D72.829 Elevated white blood cell count, unspecified (principal)
CPT/HCPCS: 36415; 80503; 85025

== ENCOUNTER → 2022-04-26 10:06 | Outpatient (BNVA) | payer MEDICARE, MEDICAID, SELFPAY | PROVIDERS: PCP Family Medicine; Visit Provider Podiatrist Foot & Ankle Surgery | DX: M79.671 Pain in right foot (principal); B35.1 Tinea unguium | CPT/HCPCS: 99213; 99214 ==

== ENCOUNTER 2022-05-01 09:17 | Outpatient (CLI) | payer OTHER, MEDICAID, SELFPAY ==
--- NOTE | 2022-05-01 10:15 | US_ITS ---
WS: [id number] ULTRASOUND-GUIDED LEFT BREAST BIOPSY CLINICAL INFORMATION: ABNORMAL MAMMO LEFT BREAST/L BREAST NODULE FINDINGS: The procedure including risks, benefits, and complications were discussed with the patient who agreed to proceed. Using sterile technique patient was prepped and draped in the usual sterile fashion. Aft er 1% lidocaine utilizing real-time ultrasound guidance 5 14-gauge cores were obtained of the LEFT br east lesion at the 3 o'clock position 4 cm from the nipple. Subsequently a titanium clip was placed i n the biopsy cavity. No immediate complications. Pathology demonstrates A. Breast, left breast mass, 3:00, 4 cm from nipple , ultrasound-guided biopsy: - Benign breast with fibrocystic changes, apocrine metaplasia and microcalcifications. - No overt malignancy identified. US/[place] [id number] IMPRESSION: 1. Uncomplicated ultrasound-guided LEFT breast biopsy. 2. The pathology demonstrates fibrocystic changes with apocrine metaplasia and microcalcifications. No evidence of malignancy. 3. Recommend return to annual screening mammography. BI-RADS: 2-Benign FOLLOW UP: 1 Year Follow-up
== END 2022-05-01 09:18 | disposition home or self-care (01) ==
LOC: RAD 09:18
PROVIDERS: PCP Family Medicine; Visit Provider Family Medicine
DX: N63.25 Unspecified lump in the left breast, overlapping quadrants (principal)
CPT/HCPCS: 19083; 88305

== ENCOUNTER → 2022-05-16 08:51 | Outpatient (BNVA) | payer MEDICARE, MEDICAID, SELFPAY | PROVIDERS: PCP Family Medicine; Visit Provider Anesthesiology Pain Medicine | DX: M54.2 Cervicalgia (principal); M47.816 Spondylosis without myelopathy or radiculopathy, lumbar region; M51.36 Other intervertebral disc degeneration, lumbar region; M79.604 Pain in right leg; F17.210 Nicotine dependence, cigarettes, uncomplicated | CPT/HCPCS: 99214 ==

== ENCOUNTER 2022-05-17 11:35 | Oncology outpatient (recurring) (ONCR) | payer MEDICARE, MEDICAID, SELFPAY ==
[2022-05-17 12:48] LABS: Basophils # 0.1 10^3/uL (0.0-0.1); Basophils % 0.4 %; Eosinophils # 0.2 10^3/uL (0.0-0.8); Eosinophils % 1.5 %; Hematocrit 45.2 % (37.0-47.0); Hemoglobin 15.1 g/dL (11.5-15.3); Lymphocytes # 3.9 10^3/uL (0.8-4.8); Lymphocytes % 30.3 %; Mean Corpuscular HGB Conc 33.4 g/dL (30.0-36.0); Mean Corpuscular Hemoglobin 31.4 pg (28.0-34.0); Mean Platelet Volume 10.3 fL (7.4-10.4); Monocytes # 0.8 10^3/uL (0.2-0.9); Monocytes % 6.1 %; Neutrophils # 7.98 10^3/uL (1.8-7.7); Neutrophils % 61.4 %; Nucleated Red Blood Cells % 0 %; Platelet Count 368 10^3/cmm (130-400); Red Blood Count 4.81 10^6/uL (4.1-5.3); Red Cell Distribution Width 12.7 % (12.1-15.1)
[2022-05-24 11:35] LABS: Leukemia Profile (BBPL) See Report
== END 2022-05-17 23:59 | disposition home or self-care (01) ==
PROVIDERS: PCP Family Medicine; Visit Provider Internal Medicine Hematology & Oncology
DX: D72.829 Elevated white blood cell count, unspecified (principal); F17.210 Nicotine dependence, cigarettes, uncomplicated; L73.2 Hidradenitis suppurativa; Z79.2 Long term (current) use of antibiotics; N80.9 Endometriosis, unspecified; J32.9 Chronic sinusitis, unspecified; Z87.440 Personal history of urinary (tract) infections; Z87.442 Personal history of urinary calculi
CPT/HCPCS: 36415; 85025; 88184; 88185; 99204

== ENCOUNTER 2022-06-07 14:32 | Oncology outpatient (recurring) (ONCR) | payer MEDICARE, MEDICAID, SELFPAY ==
[2022-06-07 14:59] LABS: Basophils # 0.1 10^3/uL (0.0-0.1); Basophils % 0.7 %; Eosinophils # 0.3 10^3/uL (0.0-0.8); Hematocrit 48.1 % (37.0-47.0); Hemoglobin 16.2 g/dL (11.5-15.3); Lymphocytes # 4.3 10^3/uL (0.8-4.8); Lymphocytes % 32.5 %; Mean Corpuscular HGB Conc 33.7 g/dL (30.0-36.0); Mean Corpuscular Hemoglobin 31.5 pg (28.0-34.0); Mean Corpuscular Volume 93.6 fl (81-99); Mean Platelet Volume 9.7 fL (7.4-10.4); Monocytes # 1.1 10^3/uL (0.2-0.9); Monocytes % 7.9 %; Neutrophils # 7.58 10^3/uL (1.8-7.7); Neutrophils % 56.7 %; Nucleated Red Blood Cells % 0 %; Platelet Count 374 10^3/cmm (130-400); Red Blood Count 5.14 10^6/uL (4.1-5.3); Red Cell Distribution Width 12.6 % (12.1-15.1); White Blood Count 13.4 10^3/uL (4.0-10.0)
== END 2022-06-16 23:59 | disposition home or self-care (01) ==
LOC: ONCMED 14:34
PROVIDERS: PCP Family Medicine; Visit Provider Internal Medicine Hematology & Oncology
DX: D72.829 Elevated white blood cell count, unspecified (principal); F17.210 Nicotine dependence, cigarettes, uncomplicated; N80.9 Endometriosis, unspecified; J32.9 Chronic sinusitis, unspecified; Z79.899 Other long term (current) drug therapy; Z87.440 Personal history of urinary (tract) infections; Z87.442 Personal history of urinary calculi
CPT/HCPCS: 85025; 99214

== ENCOUNTER → 2022-07-19 12:53 | Outpatient (BNVA) | payer MEDICARE, MEDICAID, SELFPAY | PROVIDERS: PCP Family Medicine; Visit Provider Anesthesiology Pain Medicine | DX: M47.816 Spondylosis without myelopathy or radiculopathy, lumbar region (principal); F17.200 Nicotine dependence, unspecified, uncomplicated | CPT/HCPCS: 64493; 64494; 64495; J3490 ==

== ENCOUNTER 2022-08-31 15:17 | Outpatient (CLI) | payer MEDICARE, MEDICAID, SELFPAY ==
--- NOTE | 2022-08-31 15:32 | CTR_ITS ---
PROCEDURE INFORMATION: Exam: CT Abdomen And Pelvis Without Contrast Exam date and time: 08/31/2022 3:45 PM Age: 42 years old Clinical indication: Other: Gross hematuria; Abdominal pain; Prior surgery; Surgery type: Lithotripsy, btl; Patient HX: Lt flank pain, HX renal calc, HX lithotripsy; Additional info: Gross hematuria, abdominal pain TECHNIQUE: Imaging protocol: Computed tomography of the abdomen and pelvis without contrast. Radiation optimization: All CT scans at this facility use at least one of these dose optimization techniques: automated exposure control; mA and/or kV adjustment per patient size (includes targeted exams where dose is matched to clinical indication); or iterative reconstruction. COMPARISON: CT abdomen pelvis wo/w [id number] 12/12/2021 1:31 PM RADIATION DOSE METRICS: Total DLP (mGy-cm): 1303.53 FINDINGS: Pleural spaces: There is a 6 mm pleural base nodule in the right lower lobe that has not changed for more than 2 years and is benign. Lung bases are otherwise clear. Liver: Fatty liver. Gallbladder and bile ducts: Cholecystectomy. Normal bile ducts. Pancreas: Normal. No ductal dilation. Spleen: Normal. No splenomegaly. Adrenal glands: There is a 2 cm benign adenoma in the left adrenal gland. A 1 cm benign adenoma is present in the right adrenal gland. Kidneys and ureters: There is a stable benign 1 cm cyst in the anterior aspect of the right kidney. There is a punctate nonobstructing calcification in the upper pole of the right kidney. The left kidney is unremarkable. No hydronephrosis. Stomach and bowel: Unremarkable. No obstruction. No mucosal thickening. Appendix: No evidence of appendicitis. Intraperitoneal space: Unremarkable. No free air. No significant fluid collection. Vasculature: Unremarkable. No abdominal aortic aneurysm. Lymph nodes: Unremarkable. No enlarged lymph nodes. Urinary bladder: Unremarkable as visualized. Reproductive: Unremarkable as visualized. Bones/joints: Degenerative disease in the spine. No acute bony abnormality. Soft tissues: Unremarkable. CT/CT kidney stone [id number] IMPRESSION: 1. Nonobstructing right nephrolithiasis. 2. Fatty liver. 3. Bilateral benign adrenal adenomas. COMMENTS: Consistent with the [employer]'s Incidental Findings Committee white paper (J Am Alexander Radiol 2017): For any incidental adrenal lesion greater than or equal to 1 cm but less than or equal to 4 cm classified in this report as benign, likely benign, or containing fat (including classification as an adenoma or myelolipoma), no follow-up imaging is recommended per consensus recommendations based on imaging criteria. Further lab evaluation could be pursued if warranted based on clinical findings.
== END 2022-08-31 15:18 | disposition home or self-care (01) ==
LOC: RAD 15:20
PROVIDERS: PCP Family Medicine; Visit Provider Family Medicine
DX: R31.0 Gross hematuria (principal); N20.0 Calculus of kidney; K76.0 Fatty (change of) liver, not elsewhere classified; D35.02 Benign neoplasm of left adrenal gland; D35.01 Benign neoplasm of right adrenal gland
CPT/HCPCS: 74176

== ENCOUNTER 2022-09-14 10:19 | Outpatient (CLI) | payer MEDICARE, MEDICAID, SELFPAY | END 2022-09-14 10:20 | disposition home or self-care (01) | LOC: SLEEP 09-15 10:21 | PROVIDERS: PCP Family Medicine; Visit Provider Family Medicine | DX: D72.829 Elevated white blood cell count, unspecified (principal); R53.83 Other fatigue; R06.83 Snoring | CPT/HCPCS: G0399 ==

== ENCOUNTER → 2022-09-26 10:41 | Outpatient (BNVA) | payer MEDICARE, MEDICAID, SELFPAY | PROVIDERS: PCP Family Medicine; Visit Provider Anesthesiology Pain Medicine | DX: M47.816 Spondylosis without myelopathy or radiculopathy, lumbar region (principal); M51.36 Other intervertebral disc degeneration, lumbar region; M54.2 Cervicalgia | CPT/HCPCS: 99214 ==

== ENCOUNTER 2022-10-10 08:54 | Outpatient (CLI) | payer OTHER, MEDICAID, SELFPAY ==
[2022-10-10 09:29] LABS: Basophils % 0.2 %; Eosinophils % 0.2 %; Hematocrit 45.6 % (37.0-47.0); Hemoglobin 15.4 g/dL (11.5-15.3); Lymphocytes % 15.8 %; Mean Corpuscular HGB Conc 33.8 g/dL (30.0-36.0); Mean Corpuscular Hemoglobin 31.1 pg (28.0-34.0); Mean Corpuscular Volume 92.1 fl (81-99); Mean Platelet Volume 9.7 fL (7.4-10.4); Monocytes # 0.9 10^3/uL (0.2-0.9); Monocytes % 4.8 %; Neutrophils # 15.14 10^3/uL (1.8-7.7); Neutrophils % 78.6 %; Nucleated Red Blood Cells % 0 %; Platelet Count 390 10^3/cmm (130-400); Red Blood Count 4.95 10^6/uL (4.1-5.3); White Blood Count 19.3 10^3/uL (4.0-10.0)
[2022-10-10 09:54] LABS: Alanine Aminotransferase 39 U/L (0-33); Albumin Level 4.4 g/dL (3.5-5.2); Alkaline Phosphatase 132 U/L (35-105); Anion Gap 15.9 (5-19); Aspartate Amino Transferase 23 U/L (0-32); Blood Urea Nitrogen 8 mg/dL (6-20); Calcium 9.9 mg/dL (8.5-10.5); Carbon Dioxide 23 mmol/L (22-29); Chloride 100 mmol/L (98-107); Glomerular Filtration Rate 109.6 mL/min (90-130); Glucose 100 mg/dL (65-115); Osmolality Calculated 278 mOsm/kg (285-295); Potassium 3.9 mmol/L (3.5-5.1); Sodium 135 mmol/L (136-145); Total Bilirubin 0.3 mg/dL (0.15-1.2); Total Protein 7.4 g/dL (6.6-8.7)
[2022-10-10 10:24] LABS: Hepatitis A Antibody IgM Non-Reactive (Nonreactive); Hepatitis B Core AB, Total Non-Reactive (Nonreactive); Hepatitis B Surface AB 3.8 (11.5-1000); Hepatitis B Surface Antigen Non-Reactive (Nonreactive); Hepatitis C Virus Antibody Non-Reactive (Nonreactive)
[2022-10-10 10:26] LABS: HIV 1 & 2 Antibody Non-Reactive (Non-Reactiv); HIV 1 & 2 Antigen Non-Reactive (Non-Reactiv)
[2022-10-12 13:09] LABS: Quantiferon Mitogen >10.00 IU/mL; Quantiferon Nil 0.01 IU/mL; Quantiferon Plus TB2 0.01 IU/mL; Quantiferon TB Gold NEGATIVE (NEGATIVE)
== END 2022-10-10 08:55 | disposition home or self-care (01) ==
LOC: LAB 08:59
PROVIDERS: PCP Family Medicine; Visit Provider Dermatology
DX: L73.2 Hidradenitis suppurativa (principal)
CPT/HCPCS: 36415; 80053; 85025; 86480; 86705; 86706; 86709; 86803; 87340; 87806

== ENCOUNTER 2022-10-12 08:52 | Oncology outpatient (recurring) (ONCR) | payer OTHER, MEDICAID, SELFPAY ==
[2022-10-12 09:16] LABS: Basophils # 0.1 10^3/uL (0.0-0.1); Basophils % 0.4 %; Eosinophils # 0.2 10^3/uL (0.0-0.8); Eosinophils % 1.1 %; Hematocrit 45.9 % (37.0-47.0); Lymphocytes # 7.1 10^3/uL (0.8-4.8); Lymphocytes % 39.1 %; Mean Corpuscular HGB Conc 32.7 g/dL (30.0-36.0); Mean Corpuscular Hemoglobin 30.8 pg (28.0-34.0); Mean Corpuscular Volume 94.3 fl (81-99); Mean Platelet Volume 9.5 fL (7.4-10.4); Monocytes # 1.3 10^3/uL (0.2-0.9); Monocytes % 6.9 %; Neutrophils # 9.47 10^3/uL (1.8-7.7); Nucleated Red Blood Cells % 0 %; Platelet Count 400 10^3/cmm (130-400); Red Blood Count 4.87 10^6/uL (4.1-5.3); Red Cell Distribution Width 13.4 % (12.1-15.1); White Blood Count 18.2 10^3/uL (4.0-10.0)
[2022-10-12 09:52] LABS: Slide Review Slide Review Perform
== END 2022-10-17 23:59 | disposition home or self-care (01) ==
PROVIDERS: PCP Family Medicine; Visit Provider Internal Medicine Hematology & Oncology
DX: D72.829 Elevated white blood cell count, unspecified (principal)
CPT/HCPCS: 36415; 85025

== ENCOUNTER → 2022-10-26 09:17 | Outpatient (BNVA) | payer MEDICARE, MEDICAID, SELFPAY | PROVIDERS: PCP Family Medicine; Visit Provider Podiatrist Foot & Ankle Surgery | DX: L60.0 Ingrowing nail (principal) | CPT/HCPCS: 11750 ==

== ENCOUNTER → 2022-11-02 10:00 | Outpatient (BNVA) | payer MEDICARE, MEDICAID, SELFPAY | PROVIDERS: PCP Family Medicine; Visit Provider Anesthesiology Pain Medicine | DX: M54.12 Radiculopathy, cervical region (principal); M54.16 Radiculopathy, lumbar region; M47.816 Spondylosis without myelopathy or radiculopathy, lumbar region; M51.36 Other intervertebral disc degeneration, lumbar region; M79.604 Pain in right leg | CPT/HCPCS: 99213 ==

== ENCOUNTER 2022-11-10 11:00 | Outpatient (CLI) | payer MEDICARE, MEDICAID, SELFPAY ==
--- NOTE | 2022-11-10 11:08 | XR_ITS ---
WS: [email or web address] Exam: XR thoracic spine 2V [id number] Date/Time of Exam: 11/10/2022 11:13 AM Reason For Exam: M54.16 - Radiculopathy, lumbar region Comparison 10/03/2019. No acute fracture or dislocation. Normal paraspinal soft tissue structures. No significant scoliosis. Minimal spondylosis. XR/XR thoracic spine 2V [id number] IMPRESSION: 1. Minimal degenerative changes otherwise unremarkable thoracic spine study.
--- NOTE | 2022-11-10 11:08 | XR_ITS ---
WS: [email or web address] Exam: XR lumbar spine min 4V [id number] Date/Time of Exam: 11/10/2022 11:13 AM Reason For Exam: M54.12 - Radiculopathy, cervical region Comparison 10/27/2021. No fracture or dislocation. Slight spondylosis. Disc spaces are preserved. Posterior elements are unr emarkable. XR/XR lumbar spine min 4V [id number] IMPRESSION: 1. No acute fracture or malalignment. No other significant finding.
== END 2022-11-10 11:01 | disposition home or self-care (01) ==
LOC: RAD 11:02
PROVIDERS: PCP Family Medicine; Visit Provider Anesthesiology Pain Medicine
DX: M54.12 Radiculopathy, cervical region (principal); M54.16 Radiculopathy, lumbar region; M47.816 Spondylosis without myelopathy or radiculopathy, lumbar region
CPT/HCPCS: 72070; 72110

== ENCOUNTER 2022-11-23 08:13 | Outpatient (CLI) | payer MEDICARE, MEDICAID, SELFPAY ==
--- NOTE | 2022-11-23 08:20 | XR_ITS ---
WS: [email or web address] KUB, AP view, 11/23/2022 Clinical Data: Urolithiasis Comparison: KUB, 11/23/2020 Findings: No abnormal intraabdominal masses or calcifications are seen. There is no dilatated small bowel or ev idence of obstruction. There is a moderate amount of fecal material in the transverse colon. XR/XR KUB 08386 Impression: Negative KUB.
== END 2022-11-23 08:14 | disposition home or self-care (01) ==
LOC: RAD 08:15
PROVIDERS: PCP Family Medicine; Visit Provider Urology
DX: N20.9 Urinary calculus, unspecified (principal); N39.0 Urinary tract infection, site not specified
CPT/HCPCS: 74018; 81003; 99213

== ENCOUNTER → 2022-12-25 10:08 | Outpatient (BNVA) | payer MEDICARE, MEDICAID, SELFPAY | PROVIDERS: PCP Family Medicine; Visit Provider Podiatrist Foot & Ankle Surgery | DX: Z98.890 Other specified postprocedural states (principal); M79.674 Pain in right toe(s) | CPT/HCPCS: 99024 ==

== ENCOUNTER → 2022-12-28 10:34 | Outpatient (BNVA) | payer MEDICARE, MEDICAID, SELFPAY | PROVIDERS: PCP Family Medicine; Visit Provider Podiatrist Foot & Ankle Surgery | DX: L03.031 Cellulitis of right toe (principal); Z98.890 Other specified postprocedural states | CPT/HCPCS: 10060; A6219; A6446 ==

== ENCOUNTER → 2022-12-29 10:18 | Outpatient (BNVA) | payer MEDICARE, MEDICAID, SELFPAY | PROVIDERS: PCP Family Medicine; Visit Provider Obstetrics & Gynecology | DX: N92.6 Irregular menstruation, unspecified (principal) | CPT/HCPCS: 83001; 84146; 84443; 84702; 85025 ==

== ENCOUNTER → 2023-01-01 12:21 | Outpatient (BNVA) | payer MEDICARE, MEDICAID, SELFPAY | PROVIDERS: PCP Family Medicine; Visit Provider Obstetrics & Gynecology | DX: N91.5 Oligomenorrhea, unspecified (principal) | CPT/HCPCS: 76830 ==

== ENCOUNTER → 2023-01-02 11:15 | Outpatient (BNVA) | payer MEDICARE, MEDICAID, SELFPAY | PROVIDERS: PCP Family Medicine; Visit Provider Obstetrics & Gynecology | DX: E34.9 Endocrine disorder, unspecified (principal); D72.829 Elevated white blood cell count, unspecified; N91.5 Oligomenorrhea, unspecified; R10.2 Pelvic and perineal pain | CPT/HCPCS: 82626; 82627; 84402; 84403 ==

== ENCOUNTER 2023-01-16 12:53 | Oncology outpatient (recurring) (ONCR) | payer MEDICARE, MEDICAID, SELFPAY ==
[2023-01-16 13:30] LABS: Basophils # 0.1 10^3/uL (0.0-0.1); Basophils % 0.6 %; Eosinophils # 0.2 10^3/uL (0.0-0.8); Eosinophils % 1.5 %; Hemoglobin 14.8 g/dL (11.5-15.3); Lymphocytes # 4.5 10^3/uL (0.8-4.8); Lymphocytes % 43.5 %; Mean Corpuscular HGB Conc 33.6 g/dL (30.0-36.0); Mean Corpuscular Hemoglobin 32.1 pg (28.0-34.0); Mean Corpuscular Volume 95.4 fl (81-99); Mean Platelet Volume 9.7 fL (7.4-10.4); Monocytes # 0.7 10^3/uL (0.2-0.9); Monocytes % 6.2 %; Neutrophils # 4.99 10^3/uL (1.8-7.7); Neutrophils % 47.9 %; Nucleated Red Blood Cells % 0 %; Platelet Count 329 10^3/cmm (130-400); Red Blood Count 4.61 10^6/uL (4.1-5.3); Red Cell Distribution Width 12.9 % (12.1-15.1); White Blood Count 10.4 10^3/uL (4.0-10.0)
[2023-01-16 14:15] LABS: Slide Review Slide Review Perform
== END 2023-02-14 23:59 | disposition home or self-care (01) ==
LOC: ONCMED 12:55
PROVIDERS: PCP Family Medicine; Visit Provider Internal Medicine Hematology & Oncology
DX: D72.820 Lymphocytosis (symptomatic) (principal); F17.210 Nicotine dependence, cigarettes, uncomplicated; Z79.899 Other long term (current) drug therapy; Z87.440 Personal history of urinary (tract) infections; Z87.442 Personal history of urinary calculi
CPT/HCPCS: 36415; 85025; 99214

== ENCOUNTER → 2023-01-19 09:35 | Outpatient (BNVA) | payer MEDICARE, MEDICAID, SELFPAY | PROVIDERS: PCP Family Medicine; Visit Provider Nurse Practitioner Family | DX: L73.2 Hidradenitis suppurativa (principal); L81.4 Other melanin hyperpigmentation; D22.5 Melanocytic nevi of trunk; Z71.89 Other specified counseling; L71.0 Perioral dermatitis; L55.0 Sunburn of first degree; R19.7 Diarrhea, unspecified; T38.3X6A Underdosing of insulin and oral hypoglycemic [antidiabetic] drugs, initial encounter; Y99.9 Unspecified external cause status | CPT/HCPCS: 99213 ==

== ENCOUNTER → 2023-01-25 10:30 | Outpatient (BNVA) | payer MEDICARE, MEDICAID, SELFPAY | PROVIDERS: PCP Family Medicine; Visit Provider Anesthesiology Pain Medicine | DX: M47.816 Spondylosis without myelopathy or radiculopathy, lumbar region (principal); M51.36 Other intervertebral disc degeneration, lumbar region; M54.2 Cervicalgia | CPT/HCPCS: 99214 ==

== ENCOUNTER 2023-02-14 07:47 | Outpatient (CLI) | payer MEDICARE, MEDICAID, SELFPAY ==
--- NOTE | 2023-02-14 08:11 | US_ITS ---
WS: [email or web address] ULTRASOUND SOFT TISSUES RIGHT leg HISTORY: NODULE OF SUBCUTANEOUS TISSUE OF R LOWER LEG COMPARISON: None available. TECHNIQUE: 2-D and color Doppler imaging is submitted. Ultrasound is directed to the anterior RIGHT leg just below the knee. There is prominent soft tissue at their is no discrete mass and no edema within the soft tissues. No skin thickening. US/US soft tissue/extremity 18716 IMPRESSION: Negative ultrasound RIGHT lower extremity just below the knee.
== END 2023-02-14 07:48 | disposition home or self-care (01) ==
LOC: RAD 07:48
PROVIDERS: PCP Family Medicine; Visit Provider Family Medicine
DX: R22.41 Localized swelling, mass and lump, right lower limb (principal)
CPT/HCPCS: 76882

== ENCOUNTER → 2023-02-26 10:46 | Outpatient (BNVA) | payer MEDICARE, MEDICAID, SELFPAY | PROVIDERS: PCP Family Medicine; Visit Provider Anesthesiology Pain Medicine | DX: M47.816 Spondylosis without myelopathy or radiculopathy, lumbar region (principal); M51.36 Other intervertebral disc degeneration, lumbar region; M54.2 Cervicalgia | CPT/HCPCS: 99214 ==

== ENCOUNTER 2023-04-04 09:22 | Observation (INO) | payer MEDICARE, MEDICAID, SELFPAY ==
[2023-04-03 10:14] VITALS: BMI 44.6
[2023-04-03 10:29] LABS: OR HCG Qualitative Urine Negative (Negative)
[2023-04-03 10:36] LABS: Hematocrit 44.7 % (37.0-47.0); Hemoglobin 15.2 g/dL (11.5-15.3); Mean Corpuscular Hemoglobin 31.9 pg (28.0-34.0); Mean Corpuscular Volume 93.7 fl (81-99); Mean Platelet Volume 9.9 fL (7.4-10.4); Platelet Count 346 10^3/cmm (130-400); Red Blood Count 4.77 10^6/uL (4.1-5.3); Red Cell Distribution Width 13.2 % (12.1-15.1); White Blood Count 12.5 10^3/uL (4.0-10.0)
[2023-04-03 10:56] LABS: Alanine Aminotransferase 37 U/L (0-33); Albumin Level 3.9 g/dL (3.5-5.2); Alkaline Phosphatase 115 U/L (35-105); Anion Gap 15.9 (5-19); Aspartate Amino Transferase 27 U/L (0-32); Blood Urea Nitrogen 10 mg/dL (6-20); Calcium 9.4 mg/dL (8.5-10.5); Carbon Dioxide 21 mmol/L (22-29); Chloride 103 mmol/L (98-107); Globulin 3.1 g/dL (1.3-4.6); Glomerular Filtration Rate 109.6 mL/min (90-130); Glucose 92 mg/dL (65-115); Osmolality Calculated 281 mOsm/kg (285-295); Potassium 3.9 mmol/L (3.5-5.1); Sodium 136 mmol/L (136-145); Total Bilirubin 0.3 mg/dL (0.15-1.2)
[2023-04-03 11:08] LABS: Add Urine Culture? Yes; Add Urine Microscopic? YES; Bilirubin Urine Neg (Negative); Blood Urine 3+ (Negative); Glucose Urine UA Norm (Normal); Ketones Urine Negative (Negative); Leukocyte Esterase Urine 1+ (Negative); Nitrate Urine Negative (Negative); Protein Urine 3+ (Negative); Urine Appearance Cloudy (CLEAR); Urine Color Red (Yellow); Urobilinogen Urine Norm (Negative); pH Urine 7 (5-7)
[2023-04-03 11:10] LABS: RBC Urine >100 /hpf (0-2); Squamous Epithelial Cell Urine 0-4 /hpf (0-5)
--- NOTE | 2023-04-03 11:31 | ANES.PREANE2 ---
Pre-Anesthetic Assessment Height/Weight: Height 1.63 m Weight 117.934 kg Preop Diagnosis: Chronic pelvic pain, Abnormal uterine bleeding Operation Date: 04/04/23 07:00 Proposed Procedures p Total Vaginal Hysterectomy 75506,D25.9,R10.2(Not Applicable) - Nirav Beasley MD Familial anesthetic complications: none Was Beta Luis taken within 24 hours: N/A Was Clonidine taken within 24 hours: N/A Social Tobacco and No alcohol Exam alert, oriented x 3 and regular rate & rhythm Airway Submandibular: within normal limits Cervical ROM: within normal limits Mallampati: Class II Dentition: full Pulmonary Chronic Obstructive Pulmonary Disease Metabolic Diabetes Mellitus, Hyperlipidemia and Morbid Obesity Musc/skel Lower Back Pain and Osteoarthritis/DJD Neuropsych Anxiety and Depression Anesthetic Plan ASA status: 3 Anesthesia: General Medications/Allergies Home Medications Medication Instructions Recorded Confirmed Last Taken Type Sole Supports #1 ea 01/22/20 04/02/23 Unknown Rx albuterol sulfate 90 mcg/actuation 2 puff inhalation Q6H PRN 07/05/20 04/03/23 04/03/23 History aerosol inhaler (Ventolin HFA) Shortness Of Breath diphenhydramine HCl 25 mg capsule 25 mg PO TID PRN Itching 08/30/20 04/03/23 04/03/23 History (Benadryl) furosemide 40 mg tablet (Lasix) 40 mg PO DAILY PRN edema #90 tabs 12/01/20 04/03/23 Unknown Rx potassium chloride 20 mEq 20 meq PO DAILY PRN Take with 12/01/20 04/03/23 Unknown Rx tablet,extended release Lasix #90 tabs metoprolol tartrate 25 mg tablet 12.5 mg PO BID@0600,199912/24/20 04/03/23 04/03/23 History allopurinol 100 mg tablet 100 mg PO BID 06/29/21 04/03/23 04/03/23 History atorvastatin 10 mg tablet (Lipitor) 40 mg PO DAILY 07/19/21 04/03/23 04/02/23 History clindamycin phosphate 1 % lotion 1 applic topical BID #60 mL 07/13/22 04/03/23 Unknown Rx spironolactone 100 mg tablet 100 mg PO QAM #90 tabs 07/13/22 04/03/23 04/03/23 Rx MARIJUANA 09/26/22 04/02/23 Unknown History adalimumab 80 mg/0.8 mL 80 mg (0.8 mL) SUBCUT Q14D #2 ea 10/17/22 04/03/23 03/30/23 Rx subcutaneous pen kit (Humira(CF) Pen) diazepam 10 mg tablet 10 mg PO DAILY PRN anxiety #30 tabs 12/21/22 04/03/23 04/03/23 Rx mupirocin 2 % topical ointment 1 applic topical BID 2 weeks #22 12/25/22 04/03/23 Unknown Rx grams ibuprofen 800 mg tablet See Rx Instructions .Route 03/30/23 04/03/23 04/03/23 Rx .COMPLEX #90 tabs metformin 750 mg tablet,extended 750 mg PO DAILY 04/03/23 04/03/23 04/03/23 History release 24 hr Allergies Allergy/AdvReac Type Severity Reaction Status Date / Time Cephalosporins Allergy Mild ALGY-Hives Verified 04/02/23 07:58 clindamycin Allergy ALGY-Hives Verified 04/02/23 07:58 morphine Allergy ALGY-Anaphy Verified 04/02/23 07:58 laxis Quinolones Allergy ALGY-Hives Verified 04/02/23 07:58 salicylates Allergy ALGY-Hives Verified 04/02/23 07:58 Sulfa (Sulfonamide Allergy ALGY-Anaphy Verified 04/02/23 07:58 Antibiotics) laxis [facility] Anesthesia Medical History Enrolled in chronic care management Leukocytosis Major depression, recurrent, full remission Nicotine dependence, cigarettes, with unspecified nicotine-induced disorders Obsessive compulsive disorder Psychiatric care Recurrent UTI Urolithiasis Surgical History H/O section x2 H/O laparoscopy (~04/06/22) Diagnostic laparoscopy Albino. Lysis of adhesions. Right ovarian cystectomy. Hysteroscopy with dilation and curettage via MyoSure H/O left breast biopsy H/O lithotripsy S/P cholecystectomy S/P tubal ligation Family History Mother Hyperlipidemia Hypertension Grandmother Stroke maternal Denies family history of Colon cancer Ovarian cancer Diabetes Clotting disorder Heart disease Breast CA Anesthesia complication Bleeding disorder Uterine cancer Thyroid condition Social History Substance/Drug Use: current Substance/Drug use frequency: few times a week Female Reproductive History Date of last menstrual period: 04/03/23 Para: 2 Data Anesthesia 04/03/23 10:24 04/03/23 10:24 BMP 04/03/23 10:24 Sodium 136 Potassium 3.9 Chloride 103 Carbon Dioxide 21 L BUN 10 Creatinine 0.6 Glucose 92 Calcium 9.4 Liver Function 04/03/23 Range/Units 10:24 Total Bilirubin 0.3 (0.15-1.2) mg/dL AST 27 (0-32) U/L ALT 37 H (0-33) U/L Alkaline Phosphatase 115 H (35-105) U/L Albumin 3.9 (3.5-5.2) g/dL Urine 04/03/23 Range/Units 10:06 Urine Color Red (Yellow) Urine Appearance Cloudy A (CLEAR) Urine pH 7 (5-7) Ur Specific [place] 1.010 (1.005-1.030) Urine Protein 3+ H (Negative) Urine Glucose (UA) Norm (Normal) Urine Ketones Negative (Negative) Urine Nitrate Negative (Negative) Urine Bilirubin Neg (Negative) Ur Leukocyte Esterase 1+ H (Negative) Urine RBC >100 H (0-2) /hpf Urine WBC 10-15 H (0-5) /hpf Blood Bank 04/03/23 10:24 Blood Type A Positive Rho(D) Type Positive Antibody Screen Negative Cardiac Studies: Sestamibi Stress Test (Cardiology) 10/14/21
[2023-04-03 11:36] LABS: Slide Review Slide Review Perform
[2023-04-03 11:37] LABS: Absolute Eosinophils 0.5 10^3/cmm (0.0-0.7); Absolute Neutrophil 7.1 10^3/cmm (1.4-6.5); Absolute Segmented Neutrophil 7.1 10/cmm (1.6-7.1); Eosinophils 4 %; Lymphocytes 26 %; Lymphocytes Absolute 4.4 10^3/cmm (1.2-3.4); Monocytes Absolute 0.5 10^3/cmm (0.1-0.6); Platelet Estimate Normal (Normal); Segmented Neutrophils 57 %; Total Cells Counted 100 (0-100)
[2023-04-04] VITALS (15 sets, daily range): BP systolic 94–139; BP diastolic 54–84; PULSE 56–92; RESP 15–24; TEMP 36.1–36.7; O2SAT 94–100
[2023-04-04] MEDS: enoxaparin 30 mg/0.3 mL Syringe SUBCUT (06:25)
[2023-04-04] MEDS: sodium chloride 0.9% 1,000 ML 30 ML IV (06:25)
[2023-04-04] MEDS: scopolamine 1.5 Patch 1 PATCH TRANSDERMA (06:25)
[2023-04-04] MEDS: sodium chloride 0.9% 500 ML IV (06:25)
[2023-04-04 06:30] LABS: Glucose Point of Care 103 mg/dL (70-110)
--- NOTE | 2023-04-04 06:58 | W.PM.OPSUD ---
Surgery/Procedure H&P Update DATE OF PROCEDURE: April 04, 2023 DATE H&P PERFORMED: 04/02/23 H&P UPDATE INFORMATION: I have reviewed H&P completed within last 30 days, I have examined patient prior to procedure and No changes to prior documentation PREOP DIAGNOSIS: Chronic pelvic pain, Abnormal uterine bleeding PLANNED PROCEDURE: Operation Date: 04/04/23 07:00 Proposed Procedures p Total Vaginal Hysterectomy 52477,D25.9,R10.2(Not Applicable) - Nirav Beasley MD
[2023-04-04] MEDS: vancomycin 1,000 MG in sodium chloride 0.9% 250 ML 250 MG IV (07:01)
--- NOTE | 2023-04-04 07:26 | P.ANESUD_ITS ---
Pre-Anesthetic Update Pre-Anesthetic Assessment: Date of Surgery/Procedure: 04/04/23 Preop Miryam gnosis: Chronic pelvic pain, Abnormal uterine bleeding Proposed Procedure: Operation Date: 04/04/23 07:00 Proposed Procedures p Total Vaginal Hysterectomy 60976,D25.9,R10.2(Not Applicable) - Nirav Beasley MD Any changes to Pre-Anesthetic Assessment?: No Last Intake: Intake Last Liquid Date 04/03/23 Last Liquid Time 23:30 Last Solid Date 04/03/23 Last Solid Time 20:00 Labs Last 48hrs: Short CBC 04/03/23 Range/Units 10:24 WBC 12.5 H (4.0-10.0) 10^3/ uL Hgb 15.2 (11.5-15.3) g/dL Hct 44.7 (37.0-47.0) % MCV 93.7 (81-99) fl Plt Count 346 (130-400) 10^3/c mm BMP 04/03/23 10:24 Sodium 136 Potassium 3.9 Chloride 103 Carbon Dioxide 21 L BUN 10 Creatinine 0.6 Glucose 92 Calcium 9.4 Liver Function 04/03/23 Range/Units 10:24 Total Bilirubin 0.3 (0.15-1.2) mg/dL AST 27 (0-32) U/L ALT 37 H (0-33) U/L Alkaline Phosphata se 115 H (35-105) U/L Albumin 3.9 (3.5-5.2) g/dL Urine 04/03/23 Range/Units 10:06 Urine Color Red (Yellow) Urine Appearance Cloudy A (CLEAR) Urine pH 7 (5-7) Ur Specific [place]it y 1.010 (1.005-1.030) Urine Protein 3+ H (Negative) Urine Glucose (UA) Norm (Normal) Urine Ketones Negative (Negative) Urine Nitrate Negative (Negative) Urine Bilirubin Neg (Negative) Ur Leukocyte Terri ase 1+ H (Negative) Urine RBC >100 H (0-2) /hpf Urine WBC 10-15 H (0-5) /hpf Blood Bank 04/03/23 10:24 Blood Type A Positive Rho(D) Type Positive Antibody Screen Negative Vitals: Temperature 97.0 F L 04/04/23 06:07 Temperature Source Temporal Artery S can 04/04/23 06:07 Pulse Rate 72 04/04/23 06:07 Respiratory Rate 16 04/04/23 06:07 Blood Pressure 133/74 04/04/23 06:07 Blood Pressure Malu n 93 04/04/23 06:07 Pulse Oximetry 95 04/04/23 06:07 Oxygen Delivery Me thod Room Air 04/04/23 06:08 Exam: Pre-Anes Outpt Exam: alert, oriented x 3, clear to auscultation bilaterally and regular rate & rhythm Cardiac Studies: Sestamibi Stress Test (Cardiology) 10/14
[2023-04-04] MEDS: lidocaine-epi 2% 20 mL INJ INJECTION (08:06)
--- NOTE | 2023-04-04 08:51 | PM.OP ---
Operative Report Date of procedure: April 04, 2023 Pre-op diagnosis: Preop Diagnosis Chronic pelvic pain, Abnormal uterine bleeding Post-op diagnosis: Same as above Post-op findings: Enlarged uterus Procedure done: Total vaginal hysterectomy Surgeon: Nirav Beasley MD Estimated blood loss (mL): 50 IV fluids (mL): 1,000 Urine output (mL): 200 Complications: None Procedure: After informed consent and risks, benefits, indications and alternatives reviewed with the patient was taken to the operating room. The patient was placed in dorsal lithotomy position prepped, and draped in the usual sterile fashion. The pre-procedure timeout verifying the correct patient, procedure, site and side, could not requirements was performed and acknowledge by the OR team. A Penaloza catheter was placed. A Bookwalter vaginal retractor was placed into the vagina in usual manner visualize the cervix. Cervix was grasped with a single tooth tenaculum and circumferentially infiltrated with 2% lidocaine with epinephrine. Then cervix was circumferentially incised with bovie and the bladder was dissected off the pubovesical cervical fascia anteriorly with a sponge stick and Metzenbaum scissors. The anterior peritoneal reflection was identified and the anterior cul-de-sac was entered sharply with Metzenbaum scissors. The same procedure was performed posteriorly and a posterior colpotomy was made through the posterior cul-de-sac space without difficulty and the posterior blade of the Bookwalter vaginal retractor was advanced posteriorly into the cul-de-sac. At this time, the left and right uterosacral ligaments were isolated and ligated with 0 Vicryl. The ligature impact device was placed over the uterosacral ligaments on either side and was then used in a serial fashion up through the cardinal ligaments bilaterally cross-clamped, cut, and sealed with the LigaSure impact device. Finally, the uterine arteries were cross-clamped, cut, sealed and ligated with the LigaSure device. Hemostasis was assured. The broad ligaments were then serially clamped, sealed and cut with the LigaSure impact device on both sides. Excellent hemostasis was visualized. Both cornua were clamped, sealed and cut with the LigaSure impact device. Then the pedicles were then suture ligated with excellent hemostasis. The uterus was excised and submitted for pathologic evaluation. No other abnormalities were noted in the pelvic cavity. Good hemostasis was assure on both sides. Methylene blue was given IV. The peritoneum was then closed in a pursestring fashion with 0 Vicryl suture. The vaginal cuff angles were closed with [id number] #0 Vicryl suture on both sides and transfixed with the ipsilateral cardinal and uterosacral ligaments. The remainder of the vaginal cuff was closed with #0 Vicryl in a running locked fashion. At this time, instruments were removed from the vagina at hemostasis assured. Penaloza catheter was noted with clear cesar urine. The patient was taken out of dorsal lithotomy position and awakened from the general anesthesia. The patient tolerated the procedure well and was taken to the PACU recovery room in a stable condition. Sponge, lap, needle and instruments counts were correct x3.
[2023-04-04] MEDS: diphenhydrAMINE 25 mg Capsule PO (11:26)
[2023-04-04] MEDS: diazePAM 5 mg Tablet 10 MG PO (11:26)
[2023-04-04] MEDS: ibuprofen 800 mg tablet PO ×2 (11:26→21:19)
[2023-04-04] MEDS: docusate sodium 100 mg Capsule PO ×2 (11:26→21:19)
--- NOTE | 2023-04-04 14:51 | ANE.PACU2 ---
Inpatient post-anesthesia follow up: Airway intact: Yes Vital signs: Temperature 97.2 F Pulse Rate 57 Respiratory Rate 18 Blood Pressure 122/80 Pulse Oximetry 100 Oxygen Delivery Me thod Room Air Oxygen Flow Rate 6 Fraction of Inspir ed Oxygen Hydration adequate: Yes Nausea and vomiting: No Pain level: 3 Mental status: Baseline
--- NOTE | 2023-04-04 16:45 | PC.NURSE ---
This nurse answered pt call light and she stated this catheter is driving me nuts and if you don't remove it I will take it out myself . This nurse then went to to retrieve a syringe to remove catheter pt patient request.
[2023-04-04] MEDS: atorvastatin 40 mg Tablet PO (21:19)
[2023-04-04] MEDS: metoprolol tartrate 25 mg Tablet 12.5 MG PO (22:46)
[2023-04-04] MEDS: allopurinol 100 mg Tablet PO (22:46)
[2023-04-05] MEDS: ibuprofen 800 mg tablet PO (03:06)
[2023-04-05 04:00] VITALS: BP 108/68; PULSE 54; RESP 18; TEMP 36.9; O2SAT 97
[2023-04-05 05:57] LABS: Hematocrit 40.6 % (37.0-47.0); Hemoglobin 13.5 g/dL (11.5-15.3); Mean Corpuscular HGB Conc 33.3 g/dL (30.0-36.0); Mean Corpuscular Volume 96.2 fl (81-99); Mean Platelet Volume 9.9 fL (7.4-10.4); Platelet Count 316 10^3/cmm (130-400); Red Blood Count 4.22 10^6/uL (4.1-5.3); Red Cell Distribution Width 13.2 % (12.1-15.1); White Blood Count 22.2 10^3/uL (4.0-10.0)
[2023-04-05 08:59] VITALS: BP 128/82; PULSE 67; RESP 16; TEMP 37; O2SAT 99
[2023-04-05] MEDS: allopurinol 100 mg Tablet PO (09:38)
[2023-04-05] MEDS: spironolactone 25 mg Tablet 100 MG PO (09:39)
[2023-04-05] MEDS: docusate sodium 100 mg Capsule PO (09:40)
[2023-04-05] MEDS: metoprolol tartrate 25 mg Tablet 12.5 MG PO (09:47)
--- NOTE | 2023-04-05 10:55 | PM.OBGYDC ---
Discharge Providers COMPUTER INFORMATION SYSTEMS INSTRUCTOR Date of Admission: 04/04/23 09:22 Date of Discharge: 04/05/23 Attending Provider at Admission: Nirav Beasley MD Attending Provider at Discharge: Nirav Beasley MD Primary COMPUTER INFORMATION SYSTEMS INSTRUCTOR: Nirav Beasley MD Primary Care Provider: Isabel Sainz DO Reason for Visit Reason for Visit: R10.2, D25.9 Hospital Course Hospital Course Mrs. Cummings 42-year-old female G3, P3, Admitted for planned total vaginal hysterectomy due to pelvic pain and abnormal uterine bleeding. The procedures were performed without complication. Post operative overnight observation was uneventful. Tolerating diet well. Ambulating without difficulty. She is afebrile and hemodynamically stable postoperative day 1. She was counseled regarding pelvic rest for 6 weeks (no sex, no tampons, no vaginal douches). Return to the emergency room if any fever, increased bleeding or pain. Physical Exam Narrative: GA: Alert and oriented ?3. HEENT: WNL. Heart: Regular rate and rhythm. Lungs: Clear to auscultation bilaterally. Abdomen: Bowel sounds present, nontender, minimal tenderness. 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 Extremities: No edema, no cyanosis, no calves pain. Urinary Catheter Management: Penaloza: Cath Placed During This Visit: yes, but has since been removed by the nurse Reason for Continuing Indwelling Catheter: Decision to DC Catheter Urinary Catheter Date of Insertion: 04/04/23 Urinary Catheter Time of Insertion: 07:20 Date Urinary Catheter Removed: 04/04/23 Time Urinary Catheter Discontinued: 16:50 History History History 2 Term 2 0 Miscarriages/Ectopic 0 Living Children 2 Discharge Data Studies Completed and Pending Pending at discharge Category Date Time Status Urine Culture Routine Lab 04/03/23 10:06 Results Pathology: Surgical [PTH] Routine Pth 04/04/23 08:45 Received Laboratory Results WBC 22.2 10^3/uL (4.0-10.0) H 04/05/23 05:00 RBC 4.22 10^6/uL (4.1-5.3) 04/05/23 05:00 Hgb 13.5 g/dL (11.5-15.3) 04/05/23 05:00 Hct 40.6 % (37.0-47.0) 04/05/23 05:00 MCV 96.2 fl (81-99) 04/05/23 05:00 MCH 32.0 pg (28.0-34.0) 04/05/23 05:00 MCHC 33.3 g/dL (30.0-36.0) 04/05/23 05:00 RDW 13.2 % (12.1-15.1) 04/05/23 05:00 Plt Count 316 10^3/cmm (130-400) 04/05/23 05:00 MPV 9.9 fL (7.4-10.4) 04/05/23 05:00 Lymph % (Auto) Not Reportable 04/03/23 10:24 Upson % (Auto) Not Reportable 04/03/23 10:24 Lymph # (Auto) Not Reportable 04/03/23 10:24 Upson # (Auto) Not Reportable 04/03/23 10:24 Total Counted 100 (0-100) 04/03/23 10:24 Atypical Lymphs % 9.0 % (0-5) H 04/03/23 10:24 Absolute Neutrophils 7.1 10^3/cmm (1.4-6.5) H 04/03/23 10:24 Segmented Neutrophils 57 % 04/03/23 10:24 Abs Segm Neuts (Man) 7.1 10/cmm (1.6-7.1) 04/03/23 10:24 Band Neutrophils 0.0 % 04/03/23 10:24 Abs Band Neuts (Man) 0.0 10^3/cmm (0.0-1.2) 04/03/23 10:24 Absolute Lymphocytes 4.4 10^3/cmm (1.2-3.4) H 04/03/23 10:24 Lymphocytes (Manual) 26 % 04/03/23 10:24 Monocytes (Manual) 4.0 % 04/03/23 10:24 Absolute Monocytes 0.5 10^3/cmm (0.1-0.6) 04/03/23 10:24 Eosinophils (Manual) 4 % 04/03/23 10:24 Absolute Eosinophils 0.5 10^3/cmm (0.0-0.7) 04/03/23 10:24 Basophils (Manual) 0.0 % 04/03/23 10:24 Absolute Basophils 0.0 10^3/cmm (0.0-0.2) 04/03/23 10:24 Platelet Estimate Normal (Normal) 04/03/23 10:24 Sodium 136 mmol/L (136-145) 04/03/23 10:24 Potassium 3.9 mmol/L (3.5-5.1) 04/03/23 10:24 Chloride 103 mmol/L (98-107) 04/03/23 10:24 Carbon Dioxide 21 mmol/L (22-29) L 04/03/23 10:24 Anion Gap 15.9 (5-19) 04/03/23 10:24 BUN 10 mg/dL (6-20) 04/03/23 10:24 Creatinine 0.6 mg/dL (0.5-0.9) 04/03/23 10:24 GFR Calculation 109.6 mL/min (90-130) 04/03/23 10:24 Glucose 92 mg/dL (65-115) 04/03/23 10:24 POC Glucose 103 mg/dL (70-110) 04/04/23 06:20 Calculated Osmolality 281 mOsm/kg (285-295) L 04/03/23 10:24 Calcium 9.4 mg/dL (8.5-10.5) 04/03/23 10:24 Total Bilirubin 0.3 mg/dL (0.15-1.2) 04/03/23 10:24 AST 27 U/L (0-32) 04/03/23 10:24 ALT 37 U/L (0-33) H 04/03/23 10:24 Alkaline Phosphatase 115 U/L (35-105) H 04/03/23 10:24 Total Protein 7.0 g/dL (6.6-8.7) 04/03/23 10:24 Albumin 3.9 g/dL (3.5-5.2) 04/03/23 10:24 Globulin 3.1 g/dL (1.3-4.6) 04/03/23 10:24 Urine Color Red (Yellow) 04/03/23 10:06 Urine Appearance Cloudy (CLEAR) A 04/03/23 10:06 Urine pH 7 (5-7) 04/03/23 10:06 Ur Specific [place] 1.010 (1.005-1.030) 04/03/23 10:06 Urine Protein 3+ (Negative) H 04/03/23 10:06 Urine Glucose (UA) Norm (Normal) 04/03/23 10:06 Urine Ketones Negative (Negative) 04/03/23 10:06 Urine Blood 3+ (Negative) H 04/03/23 10:06 Urine Nitrate Negative (Negative) 04/03/23 10:06 Urine Bilirubin Neg (Negative) 04/03/23 10:06 Urine Urobilinogen Norm mg/dL (Negative) 04/03/23 10:06 Ur Leukocyte Esterase 1+ (Negative) H 04/03/23 10:06 Urine RBC >100 /hpf (0-2) H 04/03/23 10:06 Urine WBC 10-15 /hpf (0-5) H 04/03/23 10:06 Ur Squamous Epith Cells 0-4 /hpf (0-5) H 04/03/23 10:06 Amorphous Sediment Not Reportable 04/03/23 10:06 Urine Bacteria None /hpf (NONE) 04/03/23 10:06 Urine HCG, Qual Negative (Negative) 04/03/23 10:02 Blood Type A Positive 04/03/23 10:24 Rho(D) Type Positive 04/03/23 10:24 Antibody Screen Negative 04/03/23 10:24 Vitals Last Vital Signs Temp 98.6 F 04/05/23 08:59 Pulse 67 04/05/23 08:59 Resp 16 04/05/23 08:59 BP 128/82 04/05/23 08:59 Pulse Ox 99 04/05/23 08:59 O2 Del Method Room Air 04/05/23 08:59 O2 Flow Rate 6 04/04/23 08:55 Discharge Plan Discharge Patient Disposition: Home Condition: Stable Prescriptions: New acetaminophen 325 mg capsule 325 mg PO Q4H PRN (Reason: fever or Postoperative pain) Qty: 60 0RF ibuprofen 800 mg tablet 800 mg PO TID PRN (Reason: pain) Qty: 60 0RF Continued (DME) Sole Supports Qty: 1 0RF Rx Instructions: As directed albuterol sulfate [Ventolin HFA] 90 mcg/actuation HFA aerosol inhaler 2 puff INHALATION Q6H PRN (Reason: Shortness Of Breath) diphenhydramine HCl [Benadryl] 25 mg capsule 25 mg PO TID PRN (Reason: Itching) atorvastatin [Lipitor] 10 mg tablet 40 mg PO DAILY allopurinol 100 mg tablet 100 mg PO BID (DME) MARIJUANA 0 .Route .MEDSUPPLY diazepam 10 mg tablet 10 mg PO DAILY PRN (Reason: anxiety) Qty: 30 5RF mupirocin 2 % ointment 1 applic topical BID 14 Days Qty: 22 2RF clindamycin phosphate 1 % lotion 1 applic TOPICAL BID Qty: 60 2RF Rx Instructions: Apply twice daily to affected areas in skin folds and on face spironolactone 100 mg tablet 100 mg PO QAM Qty: 90 2RF furosemide [Lasix] 40 mg tablet 40 mg PO DAILY PRN (Reason: edema) Qty: 90 3RF Rx Instructions: Take 40mg once daily for 3 days and then as needed for swelling potassium chloride 20 mEq tablet extended release 20 meq PO DAILY PRN (Reason: Take with Lasix) Qty: 90 3RF Rx Instructions: Take 1 tablet once daily for 3 days with Lasix and then as needed when you take Lasix Humira(CF) Pen 80 mg/0.8 mL pen injector kit 80 mg SUBCUT Q14D Qty: 2 6RF Rx Instructions: Maintenance: inject 80mg SC on day 29 following loading dose then every 2 weeks ibuprofen 800 mg tablet See Rx Instructions .ROUTE .COMPLEX Qty: 90 0RF Dose Instruction: TAKE ONE TABLET BY MOUTH THREE TIMES DAILY Rx Instructions: TAKE ONE TABLET BY MOUTH THREE TIMES DAILY metoprolol tartrate 25 mg tablet 12.5 mg PO BID@0600,2000 metformin 750 mg Tablet Extended Release 24 Hr 750 mg PO DAILY Discharge Orders: Discharge Order (Routine); Ordered 04/05/23 Ordered By: Nirav Beasley Referrals: Nirav Beasley MD [Physician] - 04/24/23 10:00 am (04/24/23 @10:00am 05/31/23 @ 11:00am ) Discharge Diet: Usual diet Discharge Activity: Resume usual activity Patient Instructions: Opioid Safety (DC), Vaginal Hysterectomy (DC), OB Discharge Report, OB Food/Drug Interaction Guide, Opioid Safety, Post Anesthesia Care Activity Restrictions/Additional Instructions: 1. Please call [facility] clinic on next working day to make your post-operative appointment in 2 weeks. 2. Please stay home until you come back to the clinic on first post-hospatilization check up. 3. Please follow instructions on your medications CAREFULLY. 4. If you have abdominal incision, do not cover it unless dressing is necessary because of drainage. OK to shower, but avoid bath. Leave steri-strips until they fall off. If they are still on one week after surgery, you may remove them. 5. If you had vaginal surgery or vaginal repair, Dr. Beasley may instruct you to take SITZ bath. 6. Yellow, blood tinged odorous vaginal discharge is usually normal after hysterectomy or vaginal surgeries. 7. No SEXUAL INTERCOURSE, tampons, or douches until you are completely released from the post-operative care. 8. Avoid constipation by eating right and maybe using some Metamucil or Milk of Magnesia. 9. All prescription refills are given during the working hours. Please do no wait till it runs out. Call the clinic at [phone] before your medication runs out. The clinic will get in touch with your doctor to prescribe medications if necessary. 10. Please remain within 40 mile radius from our hospital because emergencies do happen now and then during the post-operative period. 11. If you have stairs at home, take one step at a time slowly and minimize the number of trips. It helps to stay in one floor for the next few days. No lifting except what you can lift by one hand until you are released from the post-operative care. 12. Driving is discouraged until you are well healed. It may be 3-4 weeks before you feel strong enough to drive. You should be able to turn and look through the rear window without pain and you should be able to push the brake pedal very hard without pain before you drive. No fast rules, but SAFETY should be your primary concern. DO NOT drive if you are on sedating medications such as narcotics. 13. Call the clinic (during working hours) to make urgent appointment or go to the Emergency room, if any of the following occurs: i. Vaginal bleeding becomes heavy, more than a period. ii. Incision becomes red and sore, or drains pus. iii. Your TEMPERATURE is over 100.4F or you have chill. iv. IV site becomes red and swollen (a little ``knot?? is usually OK) v. Persistent nausea and vomiting vi. Persistent constipation or diarrhea vii. Rash or allergic reaction to medications. Discharge Attestations COMPUTER INFORMATION SYSTEMS INSTRUCTOR Time Spent in Discharge Care*: greater than 30 min Coding Level of Care Code Acute Code for Chg Fwd Diagnoses
[2023-04-05 11:37] VITALS: BP 119/75; PULSE 96; RESP 20; TEMP 36.6
[2023-04-05 11:39] VITALS: BP 119/75; PULSE 96; RESP 20; TEMP 36.6
== END 2023-04-05 11:40 | disposition home or self-care (01) ==
LOC: OBGYN 09:22
PROVIDERS: Admitting Provider Obstetrics & Gynecology; PCP Family Medicine; Visit Provider Obstetrics & Gynecology
PROC: (CPT 58260; principal; 2023-04-04 07:00)
DX: R10.2 Pelvic and perineal pain (principal); N93.9 Abnormal uterine and vaginal bleeding, unspecified; R87.612 Low grade squamous intraepithelial lesion on cytologic smear of cervix (LGSIL); J44.9 Chronic obstructive pulmonary disease, unspecified; E11.9 Type 2 diabetes mellitus without complications; E78.5 Hyperlipidemia, unspecified; E66.01 Morbid (severe) obesity due to excess calories; Z68.41 Body mass index [BMI] 40.0-44.9, adult; Z79.4 Long term (current) use of insulin; F41.9 Anxiety disorder, unspecified; F17.210 Nicotine dependence, cigarettes, uncomplicated
CPT/HCPCS: 58260; 36415; 36416; 80053; 81001; 81025; 82962; 84703; 85007; 85025; 85027; 86850; 86900; 87086; 88307; G0378; J1100; J1650; J2405; J2704; J2710; J3010; J3370; J3490; J7030; J7040; J7050; Q9968

== ENCOUNTER 2023-04-11 20:00 | Outpatient (CLI) | payer MEDICARE, MEDICAID, SELFPAY | END 2023-04-11 20:01 | disposition home or self-care (01) | LOC: SLEEP 04-12 03:46 | PROVIDERS: PCP Family Medicine; Visit Provider Family Medicine | DX: R40.0 Somnolence (principal); Z91.89 Other specified personal risk factors, not elsewhere classified; G47.33 Obstructive sleep apnea (adult) (pediatric) | CPT/HCPCS: 95810 ==

== ENCOUNTER → 2023-04-18 14:19 | Outpatient (BNVA) | payer MEDICARE, MEDICAID, SELFPAY | PROVIDERS: PCP Family Medicine; Visit Provider Nurse Practitioner Family | DX: L73.2 Hidradenitis suppurativa (principal); L81.4 Other melanin hyperpigmentation; D22.5 Melanocytic nevi of trunk; L57.8 Other skin changes due to chronic exposure to nonionizing radiation | CPT/HCPCS: 11900; 99213; J3301 ==

== ENCOUNTER → 2023-04-24 16:34 | Outpatient (BNVA) | payer MEDICARE, MEDICAID, SELFPAY | PROVIDERS: PCP Family Medicine; Visit Provider Nurse Practitioner Women's Health | DX: R30.0 Dysuria (principal); Z48.816 Encounter for surgical aftercare following surgery on the genitourinary system | CPT/HCPCS: 81000; 87077; 87086; 87184; 99213 ==

== ENCOUNTER 2023-04-30 07:46 | Outpatient (CLI) | payer MEDICARE, MEDICAID, SELFPAY ==
--- NOTE | 2023-04-30 08:05 | MM_ITS ---
WS: [id number] DIAGNOSTIC BILATERAL DIGITAL BREAST TOMOSYNTHESIS MAMMOGRAPHY WITH CAD Left breast ultrasound, limited HISTORY: Left breast palpable nodule. COMPARISON: 04/13/2022, 03/31/2021 TECHNIQUE: Bilateral craniocaudad, mediolateral oblique, and mediolateral views are submitted with to mosynthkaren and SM. Computer aided detection utilized. Breast composition: There are scattered areas of fibroglandular density. 5 mm nodule left breast at 3 :00 with biopsy clip is identified. There is no underlying mass or distortion associated with the pal pable marker in the medial left breast. Left breast ultrasound, limited. Ultrasound directed to the palpable abnormality at 9:00, 3 cm from the nipple. No mass or distortion is identified. IMPRESSION: MM/[place] [id number] BI-RADS: 2-Benign FOLLOW UP: 1 Year Follow-up
--- NOTE | 2023-04-30 08:29 | US_ITS ---
WS: [id number] DIAGNOSTIC BILATERAL DIGITAL BREAST TOMOSYNTHESIS MAMMOGRAPHY WITH CAD Left breast ultrasound, limited HISTORY: Left breast palpable nodule. COMPARISON: 04/13/2022, 03/31/2021 TECHNIQUE: Bilateral craniocaudad, mediolateral oblique, and mediolateral views are submitted with to mosynthkaren and SM. Computer aided detection utilized. Breast composition: There are scattered areas of fibroglandular density. 5 mm nodule left breast at 3 :00 with biopsy clip is identified. There is no underlying mass or distortion associated with the pal pable marker in the medial left breast. Left breast ultrasound, limited. Ultrasound directed to the palpable abnormality at 9:00, 3 cm from the nipple. No mass or distortion is identified. IMPRESSION: US/US breast LT limited* [id number] BI-RADS: 2-Benign FOLLOW UP: 1 Year Follow-up
== END 2023-04-30 07:47 | disposition home or self-care (01) ==
LOC: RAD 07:49 → MOBLMAM 07:51 → RAD 08:03
PROVIDERS: PCP Family Medicine; Visit Provider Family Medicine
DX: N63.25 Unspecified lump in the left breast, overlapping quadrants (principal)
CPT/HCPCS: 76642; 77062; G0279

== ENCOUNTER 2023-06-25 11:20 | Outpatient (CLI) | payer MEDICARE, MEDICAID, SELFPAY ==
--- NOTE | 2023-06-25 11:27 | XRR_ITS ---
PROCEDURE INFORMATION: Exam: XR Chest Exam date and time: 06/25/2023 11:47 AM Age: 42 years old Clinical indication: Cough; Prior surgery; Surgery date: 6+ months; Surgery type: Breast reduction, hystero TECHNIQUE: Imaging protocol: Radiologic exam of the chest. Views: 2 views. COMPARISON: CR XR chest 2V* [id number] 01/20/2022 10:36 AM FINDINGS: Lungs: Unremarkable. No consolidation. Pleural spaces: Unremarkable. No pleural effusion. No pneumothorax. Heart/Mediastinum: Unremarkable. No cardiomegaly. Bones/joints: Pectus excavatum. Mild multilevel thoracic spondylosis. XR/XR chest 2V* [id number] IMPRESSION: No acute findings.
== END 2023-06-25 11:21 | disposition home or self-care (01) ==
PROVIDERS: PCP Family Medicine; Visit Provider Nurse Practitioner Family
DX: R05.9 Cough, unspecified (principal); Z98.890 Other specified postprocedural states; Z90.710 Acquired absence of both cervix and uterus
CPT/HCPCS: 71046

== ENCOUNTER 2023-07-08 00:49 | Emergency (ER) | payer MEDICARE, MEDICAID, SELFPAY ==
[2023-07-08 00:59] VITALS: BP 126/80; PULSE 74; RESP 22; TEMP 36.8; O2SAT 98; BMI 45.4
--- NOTE | 2023-07-08 03:47 | XRR_ITS ---
PROCEDURE INFORMATION: Exam: XR Right Ribs with PA Chest Exam date and time: 07/08/2023 4:13 AM Age: 42 years old Clinical indication: Painful respiration; Chest wall pain; Right; Prior surgery; Surgery date: 6+ months; Surgery type: Breast biopsy. Gb; Patient HX: RT rib pain from persistent dry cough. ; Additional info: R rib pain TECHNIQUE: Imaging protocol: Radiologic exam of the right ribs with PA chest. Views: 3 views COMPARISON: CR XR chest 2V* [id number] 06/25/2023 11:47 AM FINDINGS: Lungs: Unremarkable. No consolidation. Pleural spaces: Unremarkable. No pleural effusion. No pneumothorax. Heart/Mediastinum: Unremarkable. No cardiomegaly. Bones/joints: Unremarkable. XR/XR ribs RT mn 3V w CXR1V [id number] IMPRESSION: No acute findings.
[2023-07-08 04:21] VITALS: BP 132/88; PULSE 75; O2SAT 96
[2023-07-08 04:23] VITALS: RESP 20; O2SAT 96
[2023-07-08] MEDS: oxyCODONE-APAP 5-325 mg Tablet 2 TAB PO (04:23)
--- NOTE | 2023-07-08 04:30 | ECG_ITS ---
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 Measurements Intervals Drift Rate: 60 P: 34 IN: 170 QRS: 54 QRSD: 106 T: -2 QT: 405 QTc: 406 Interpretive Statements SINUS RHYTHM WITH SINUS ARRHYTHMIA NONSPECIFIC T-WAVE ABNORMALITY Compared to ECG 08/05/2021 08:32:48 No significant changes Electronically Signed On 07-08-2023 5:55:30 CDT by Maegan Valles M.D. [id number]
[2023-07-08 04:49] VITALS: BP 138/95; PULSE 84; O2SAT 95
--- NOTE | 2023-07-08 15:01 | W.ED.URI ---
HPI - URI/Sore Throat General: Chief Complaint: Upper Respiratory Infection Stated Complaint: Rib Pain Coughing Time Seen by Provider: 07/08/23 03:14 Source: patient History of Present Illness: This is a 42 year old female with a history of a polyp in her throat she says. It causes her to cough. She's been coughing quite a bit lately because of this. This is despite tessalon pearls prescribed by her PCP. She notes that at one point, during a coughing fit, she felt something on the right side of her chest, and now she has a painful area to her back along her right rib. It hurts worse with coughing and deep breathing. It hurts worse with movement. No fever, no sputum production. No GI symptoms. MD elicited complaint: cough and other Associated symptoms: Reports chest pain; Deny abdominal pain, diarrhea, fever(s), headache(s), nausea or vomiting Review of Systems Const: Denies: fever(s) Eyes: Denies: change in vision Card: Reports: chest pain; Denies: palpitations Resp: Reports: non-productive cough; Denies: dyspnea, productive cough or wheezing GI: Denies: abdominal pain, nausea, vomiting, diarrhea or hematochezia : Denies: difficulty voiding Skin/Breast: Denies: rash Neuro: Denies: headache(s), weakness in extremities, dizziness or confusion PFSH ED PFSH: Medical History Enrolled in chronic care management Leukocytosis Major depression, recurrent, full remission Menorrhagia Nicotine dependence, cigarettes, with unspecified nicotine-induced disorders Obsessive compulsive disorder Pelvic pain Psychiatric care Recurrent UTI Urolithiasis Surgical History H/O section x2 H/O laparoscopy (~04/06/22) Diagnostic laparoscopy Albino. Lysis of adhesions. Right ovarian cystectomy. Hysteroscopy with dilation and curettage via MyoSure H/O left breast biopsy H/O lithotripsy History of vaginal hysterectomy (~04/04/23) performed for AUB and pelvic pain-- Albino OZH; MARILIA 1 on cervix; o/w Neg pathology S/P cholecystectomy S/P tubal ligation Family History Mother Hyperlipidemia Hypertension Grandmother Stroke maternal Denies family history of Colon cancer Ovarian cancer Diabetes Clotting disorder Heart disease Breast CA Anesthesia complication Bleeding disorder Uterine cancer Thyroid condition Social History Substance/Drug Use: current Substance/Drug use frequency: few times a week Female Reproductive History: Para: 2 Physical Exam Const: COMMON NORMALS: no acute distress GENERAL APPEARANCE: cooperative; not ill appearing and not frail appearing HENMT: COMMON NORMALS: normocephalic, atraumatic and Normal external nose present HEAD & SCALP: normocephalic and atraumatic FACE & SINUS: normal facial exam and face symmetric NOSE: Normal external nose present Eye: COMMON NORMALS: Equal, round and reactive pupils present and EOMs intact bilaterally PUPIL: Yes Equal, round and reactive pupils present Neck/C-Spine: GENERAL: Yes trachea midline Chest: CHEST: Yes Symmetrical chest wall rise and Yes tenderness rib (R rib 4-5) Resp: COMMON NORMALS: normal respiratory effort, No retractions, No use of accessory muscles and clear to auscultation bilaterally AUSCULTATION: clear to auscultation bilaterally Cardio: COMMON NORMALS: regular rate and regular rhythm RATE: regular rate RHYTHM: regular rhythm GI: COMMON NORMALS: Normal to inspection, nondistended, normoactive bowel sounds present Extremity: COMMON NORMALS: no pedal edema Neuro: XUAN COMA SCALE: document GCS findings Xuan coma scale eye opening: Spontaneous Xuan coma scale verbal response: Orientated Withams coma scale motor response: Obey commands Withams coma scale total score: 15 SENSORY EXAM: Yes extremities (intact) Psych: COMMON NORMALS: speech normal SPEECH: Yes normal speech Skin: COMMON NORMALS: no rashes or lesions noted GENERAL SKIN EXAM: no rashes or lesions noted Course Vital Signs: Vital signs: Vital Signs Temperature 98.2 F 07/08/23 00:59 Pulse Rate 84 07/08/23 04:49 Respiratory Rate 20 H 07/08/23 04:23 Blood Pressure 138/95 07/08/23 04:49 Pulse Oximetry 95 07/08/23 04:49 Oxygen Delivery Me thod Room Air 07/08/23 04:21 MDM - URI/Sore Throat Medical Decision Making Vital signs are stable here. She's in no distress. She has reproducible chest wall tenderness to the posterior greater than anterior right chest wall with palpation of a specific rib. Rib X-rays are negative however. She'll be given a tapering dose of steroid for chest wall inflammation. Promethazine for cough suppression. Hydrocodone, a short course, for pain. She has an appointment on Sunday with ENT to investigate the polyp. She will keep this appointment. To return from new or worsening symptoms. Lab Data Radiology Impressions Ribs X-Ray 07/08/23 03:47 IMPRESSION: No acute findings. XR interpretation done by ED provider, pending radiology final review Discharge Plan Discharge Patient Disposition: Home Clinical Impression: Cough, Acute chest wall pain Condition: Stable Prescriptions: New hydrocodone-acetaminophen 5-325 mg tablet 1 tab PO Q8H PRN (Reason: pain) Qty: 7 0RF promethazine 25 mg tablet 25 mg PO TID PRN (Reason: cough) Qty: 14 0RF Medrol (Ron) 4 mg tablets,dose pack See Rx Instructions .ROUTE .COMPLEX Qty: 21 0RF Rx Instructions: orally per package directions No Action (DME) Sole Supports Qty: 1 0RF Rx Instructions: As directed albuterol sulfate [Ventolin HFA] 90 mcg/actuation HFA aerosol inhaler 2 puff INHALATION Q6H PRN (Reason: Shortness Of Breath) diphenhydramine HCl [Benadryl] 25 mg capsule 25 mg PO TID PRN (Reason: Itching) atorvastatin [Lipitor] 10 mg tablet 40 mg PO DAILY allopurinol 100 mg tablet 100 mg PO BID (DME) MARIJUANA 0 .Route .MEDSUPPLY diazepam 10 mg tablet 10 mg PO DAILY PRN (Reason: anxiety) Qty: 30 5RF mupirocin 2 % ointment 1 applic topical BID 14 Days Qty: 22 2RF clindamycin phosphate 1 % lotion 1 applic TOPICAL BID Qty: 60 2RF Rx Instructions: Apply twice daily to affected areas in skin folds and on face spironolactone 100 mg tablet 100 mg PO QAM Qty: 90 2RF nitrofurantoin monohyd/m-cryst [Macrobid] 100 mg capsule 100 mg PO Q12H 7 Days Qty: 14 0RF Rx Instructions: must administer with a meal/food furosemide [Lasix] 40 mg tablet 40 mg PO DAILY PRN (Reason: edema) Qty: 90 3RF Rx Instructions: Take 40mg once daily for 3 days and then as needed for swelling potassium chloride 20 mEq tablet extended release 20 meq PO DAILY PRN (Reason: Take with Lasix) Qty: 90 3RF Rx Instructions: Take 1 tablet once daily for 3 days with Lasix and then as needed when you take Lasix Humira(CF) Pen 80 mg/0.8 mL pen injector kit 80 mg SUBCUT Q14D Qty: 2 6RF Rx Instructions: Maintenance: inject 80mg SC on day 29 following loading dose then every 2 weeks ibuprofen 800 mg tablet See Rx Instructions .ROUTE .COMPLEX Qty: 90 0RF Dose Instruction: TAKE ONE TABLET BY MOUTH THREE TIMES DAILY Rx Instructions: TAKE ONE TABLET BY MOUTH THREE TIMES DAILY metoprolol tartrate 25 mg tablet 12.5 mg PO BID@0600,2000 metformin 750 mg Tablet Extended Release 24 Hr 750 mg PO DAILY acetaminophen 325 mg capsule 325 mg PO Q4H PRN (Reason: fever or Postoperative pain) Qty: 60 0RF Discharge Orders: Discharge ED (Routine); Ordered 07/08/23 Ordered By: Andrew Eugene Referrals: Isabel Sainz DO [Primary Care Provider] - 1-3 days Patient Instructions: Chest Wall Pain (ED), Opioid Safety, Pain Management Activity Restrictions/Additional Instructions: Medication as directed. Return for fever, worsening pain despite treatment, worsening trouble breathing, other concerning symptoms. Follow-up with your doctor as scheduled. Coding Level of Care Code ED Rug Shampooer for Urvashi Jean
== END 2023-07-08 04:49 | disposition home or self-care (01) ==
PROVIDERS: Emergency Provider Emergency Medicine; PCP Family Medicine
DX: R05.9 Cough, unspecified (principal); R07.89 Other chest pain; Z79.82 Long term (current) use of aspirin; Z79.84 Long term (current) use of oral hypoglycemic drugs
CPT/HCPCS: 71101; 93005; 99284

== ENCOUNTER → 2023-07-13 09:57 | Outpatient (BNVA) | payer MEDICARE, MEDICAID, SELFPAY | PROVIDERS: PCP Family Medicine; Visit Provider Nurse Practitioner Family | DX: L73.2 Hidradenitis suppurativa (principal); L81.4 Other melanin hyperpigmentation; D22.5 Melanocytic nevi of trunk; L57.8 Other skin changes due to chronic exposure to nonionizing radiation | CPT/HCPCS: 99214 ==

== ENCOUNTER → 2023-08-29 08:49 | Outpatient (BNVA) | payer MEDICARE, MEDICAID, SELFPAY | PROVIDERS: PCP Family Medicine; Visit Provider Anesthesiology Pain Medicine | DX: M54.2 Cervicalgia; M47.816 Spondylosis without myelopathy or radiculopathy, lumbar region; M51.36 Other intervertebral disc degeneration, lumbar region; M51.26 Other intervertebral disc displacement, lumbar region; M51.24 Other intervertebral disc displacement, thoracic region | CPT/HCPCS: 99214 ==

== ENCOUNTER → 2023-09-19 08:58 | Outpatient (BNVA) | payer MEDICARE, MEDICAID, SELFPAY | PROVIDERS: PCP Family Medicine; Visit Provider Anesthesiology Pain Medicine | DX: M54.2 Cervicalgia; M47.816 Spondylosis without myelopathy or radiculopathy, lumbar region; M51.36 Other intervertebral disc degeneration, lumbar region | CPT/HCPCS: 99214 ==

== ENCOUNTER → 2024-03-06 09:45 | Outpatient (BNVA) | payer MEDICARE, OTHER, SELFPAY | PROVIDERS: PCP Family Medicine; Visit Provider Anesthesiology Pain Medicine | DX: M54.2 Cervicalgia; M47.816 Spondylosis without myelopathy or radiculopathy, lumbar region; M51.36 Other intervertebral disc degeneration, lumbar region | CPT/HCPCS: 99214 ==

== ENCOUNTER → 2024-03-11 10:57 | Outpatient (BNVA) | payer MEDICARE, MEDICAID, SELFPAY | PROVIDERS: PCP Family Medicine; Visit Provider Obstetrics & Gynecology | DX: N83.202 Unspecified ovarian cyst, left side (principal); N83.201 Unspecified ovarian cyst, right side; R10.32 Left lower quadrant pain | CPT/HCPCS: 76830 ==

== ENCOUNTER 2024-04-18 22:34 | Emergency (ER) | payer MEDICARE, MEDICAID, SELFPAY ==
[2024-04-18 22:39] VITALS: BP 137/85; PULSE 78; RESP 16; TEMP 36.8; O2SAT 98
[2024-04-18] MEDS: ondansetron 4 MG Tablet PO (23:59)
[2024-04-18] MEDS: lidocaine-epi 2% 20 mL INJ INJECTION (23:59)
[2024-04-19 00:18] VITALS: BP 112/80; PULSE 77; O2SAT 98
--- NOTE | 2024-04-19 00:26 | ED_ITS ---
HPI - Wound/Laceration General: Chief Complaint: Wound/Laceration Stated Complaint: right leg wound Time Seen by Provider: 04/18/24 23:34 Source: patient Mode of arrival: ambulatory Limitations: no limitations History of Present Illness: Patient is a 43-year-old female who presents the emergency department complaining of lesion to right inner thigh onset today. Patient has history of hidradenitis suppurativa and states that she is ran out of her Humira, and states that the pain has gotten so severe that she cannot wait until her dermatology appointment next week. Denies fever but states she is nauseous from the pain. States that walking has caused significant increase in the pain. She regularly has these drained/treated with dermatology. No other symptoms reported this time. Onset (ago): hour(s) Extremity Location: Right: thigh Associated symptoms: Reports nausea; Denies chills, fever(s) or vomiting Review of Systems General: Reports: 10 or more systems reviewed and unremarkable except in HPI and below Const: Denies: fever(s) or chills Card: Denies: chest pain Resp: Denies: dyspnea GI: Reports: nausea; Denies: abdominal pain, vomiting or diarrhea Musc: Denies: extremity pain or joint pain Skin/Breast: Reports: skin pain, skin tenderness and new lesions; Denies: rash Neuro: Denies: headache(s) PFSH ED PFSH: Medical History Leukocytosis Pelvic pain Menorrhagia Psychiatric care Urolithiasis Recurrent UTI Nicotine dependence, cigarettes, with unspecified nicotine-induced disorders Enrolled in chronic care management Major depression, recurrent, full remission Obsessive compulsive disorder Surgical History History of vaginal hysterectomy (~04/04/23) performed for AUB and pelvic pain-- Albino OZH; MARILIA 1 on cervix; o/w Neg pathology H/O left breast biopsy H/O laparoscopy (~04/06/22) Diagnostic laparoscopy Albino. Lysis of adhesions. Right ovarian cystectomy. Hysteroscopy with dilation and curettage via MyoSure H/O section x2 H/O lithotripsy S/P cholecystectomy S/P tubal ligation Family History Mother Hyperlipidemia Hypertension Grandmother Stroke maternal Denies family history of Colon cancer Ovarian cancer Diabetes Clotting disorder Heart disease Breast cancer Anesthesia complication Bleeding disorder Uterine cancer Thyroid disease Social History Smoking and tobacco/nicotine status: current every day tobacco/nicotine user Substance/Drug Use: current Substance/Drug use frequency: few times a week Female Reproductive History: Para: 2 Physical Exam Const: COMMON NORMALS: no acute distress, patient oriented x3, no limitations, alert and well nourished NUTRITIONAL APPEARANCE: obese HENMT: COMMON NORMALS: normocephalic and atraumatic HEAD & SCALP: normocephalic and atraumatic Neck/C-Spine: COMMON NORMALS: full ROM, no lymphadenopathy, supple and no meningeal signs Resp: COMMON NORMALS: normal respiratory effort, No use of accessory muscles and clear to auscultation bilaterally AUSCULTATION: clear to auscultation bilaterally Cardio: COMMON NORMALS: regular rate and regular rhythm RATE: regular rate RHYTHM: regular rhythm Extremity: COMMON NORMALS: full ROM and capillary refill normal Neuro: COMMON NORMALS: patient oriented x3 SENSORIUM/ORIENTATION: Yes alert MENINGEAL SIGNS: Yes no meningeal signs Skin: COMMON NORMALS: no wounds and turgor normal NARRATIVE SKIN EXAM: There is a large circumferential lesion noted to the inferior aspect of patient's right thigh. Central area is indurated and exquisitely tender to the touch. No active draining at this time. No significant fluctuance noted at this time. Small surrounding area of erythema. GENERAL SKIN EXAM: turgor normal Procedures Abscess I/D Site: lower extremity Side (if applicable): right Local Anesthetic: lidocaine 2% and with epi Amount of anesthesia used (mL): 5 Technique: needle aspiration and incised with #11 blade Irrigation: No Packing used?: none Complications: pain Course Vital Signs: Vital signs: Vital Signs Temperature 98.2 F 04/18/24 22:39 Pulse Rate 77 04/19/24 00:18 Respiratory Rate 16 04/18/24 22:39 Blood Pressure 112/80 04/19/24 00:18 Pulse Oximetry 98 04/19/24 00:18 Oxygen Delivery Me thod Room Air 04/19/24 00:18 MDM - Wound/Laceration Medical Decision Making Patient has history of hidradenitis suppurativa, presents with a lesion that she states needs drained. She sees dermatology and is on Humira, however has ran out and believes that this flareup is due to this. Normal vitals on arrival noted to be afebrile, only systemic symptom is some nausea but states this is from the pain. States she normally has these drained. There was no area of fluctuance noted on exam, however needle and 11 blade drainage was attempted but this did not express any purulent material. There was small surrounding area of cellulitis so we will treat with antibiotics and steroids for flareup of hidradenitis, and she is instructed to continue her follow-up with dermatology and leave wound open to drain for any purulence. She is also informed to return if she develops any worsening pain or systemic signs of illness. She will be given antibiotics and steroids here prior to discharge. Case discussed with Dr. Herrera who agrees with disposition at this time. No radiology studies performed this visit Discharge Plan Discharge Patient Disposition: Home Clinical Impression: Hidradenitis suppurativa Condition: Stable Prescriptions: New prednisone 20 mg tablet 60 mg PO ONCE 5 Days Qty: 15 0RF doxycycline hyclate 100 mg tablet 100 mg PO BID 10 Days Qty: 20 0RF No Action (DME) Sole Supports Qty: 1 0RF Rx Instructions: As directed albuterol sulfate [Ventolin HFA] 90 mcg/actuation HFA aerosol inhaler 2 puff INHALATION Q6H PRN (Reason: Shortness Of Breath) diphenhydramine HCl [Benadryl] 25 mg capsule 25 mg PO TID PRN (Reason: Itching) atorvastatin [Lipitor] 10 mg tablet 40 mg PO DAILY allopurinol 100 mg tablet 100 mg PO BID (DME) MARIJUANA 0 .Route .MEDSUPPLY benzonatate 100 mg capsule 100 mg PO BID PRN Mounjaro 2.5 mg/0.5 mL pen injector SUBCUT clindamycin phosphate 1 % lotion 1 applic TOPICAL BID Qty: 60 2RF Rx Instructions: Apply twice daily to affected areas in skin folds and on face diazepam 10 mg tablet 10 mg PO DAILY PRN (Reason: anxiety) Qty: 30 5RF furosemide [Lasix] 40 mg tablet 40 mg PO DAILY PRN (Reason: edema) Qty: 90 3RF Rx Instructions: Take 40mg once daily for 3 days and then as needed for swelling potassium chloride 20 mEq tablet extended release 20 meq PO DAILY PRN (Reason: Take with Lasix) Qty: 90 3RF Rx Instructions: Take 1 tablet once daily for 3 days with Lasix and then as needed when you take Lasix Humira(CF) Pen 80 mg/0.8 mL pen injector kit 80 mg SUBCUT Q14D Qty: 2 6RF Rx Instructions: Maintenance: inject 80mg SC on day 29 following loading dose then every 2 weeks ibuprofen 800 mg tablet See Rx Instructions .ROUTE .COMPLEX Qty: 90 0RF Dose Instruction: TAKE ONE TABLET BY MOUTH THREE TIMES DAILY Rx Instructions: TAKE ONE TABLET BY MOUTH THREE TIMES DAILY metoprolol tartrate 25 mg tablet 12.5 mg PO BID@0600,2000 acetaminophen 325 mg capsule 325 mg PO Q4H PRN (Reason: fever or Postoperative pain) Qty: 60 0RF Discharge Orders: Discharge ED (Routine); Ordered 04/19/24 Ordered By: Felipe Grullon Referrals: Isabel Sainz DO [Primary Care Provider] - Discharge Diet: Usual diet Discharge Activity: Increase activity as tolerated Patient Instructions: Abscess (ED), Abscess Follow-up (ED) Activity Restrictions/Additional Instructions: Take antibiotics as prescribed. Steroids as prescribed. Leave open to drain and dressed appropriately as discussed. Continue follow-up with dermatology as discussed. Tylenol or ibuprofen for any pain. If you develop any systemic signs of illness such as nausea, vomiting, or unpredictable fevers, please return for reevaluation. Coding Level of Care Code ED Charge Account Clerk for Urvashi Jean
[2024-04-19] MEDS: diphenhydrAMINE 50 mg Capsule PO (00:30)
[2024-04-19] MEDS: doxycycline 100 mg Tablet PO (00:30)
[2024-04-19] MEDS: dexamethasone 10 mg/mL INJ IM (00:32)
[2024-04-19 00:44] VITALS: BP 106/63; RESP 18; O2SAT 99
== END 2024-04-19 00:46 | disposition home or self-care (01) ==
PROVIDERS: Emergency Provider Physician Assistant; PCP Family Medicine
DX: L73.2 Hidradenitis suppurativa (principal); Z79.85 Long-term (current) use of injectable non-insulin antidiabetic drugs; Z72.0 Tobacco use
CPT/HCPCS: 10060; 96372; 99284; J1100; Q0162; Q0163

== ENCOUNTER 2024-05-06 09:30 | Outpatient (CLI) | payer MEDICARE, OTHER, SELFPAY ==
--- NOTE | 2024-05-06 09:36 | MM_ITS ---
WS: [id number] BILATERAL SCREENING DIGITAL TOMOSYNTHESIS MAMMOGRAM WITH CAD HISTORY: SCREENING COMPARISON: LEFT breast ultrasound 04/30/2023, mammogram 04/30/2023, 04/13/2022 and 03/31/2021 Bilateral CC and MLO views with tomosynthesis and synthetic mammography submitted. Computer aided det ection analyzed. Breast composition: There are scattered areas of fibroglandular density. No suspicious masses, microc alcifications or architectural distortion. 5 mm mass in the 3:00 LEFT breast with an adjacent biopsy clip is stable. MM/[place] [id number] IMPRESSION: BI-RADS: 2-Benign FOLLOW UP: 1 Year Follow-up
== END 2024-05-06 09:31 | disposition home or self-care (01) ==
LOC: RAD 09:31
PROVIDERS: PCP Family Medicine; Visit Provider Family Medicine
DX: Z12.31 Encounter for screening mammogram for malignant neoplasm of breast (principal)
CPT/HCPCS: 77063; 77067

== ENCOUNTER 2024-08-20 13:21 | Outpatient (CLI) | payer MEDICARE, MEDICAID, SELFPAY ==
--- NOTE | 2024-08-20 13:27 | XR_ITS ---
WS: [id number] XR chest 2V* [id number] REASON FOR EXAM: COUGH/URI-ACUTE FINDINGS: The heart and the mediastinum are within normal limits. Calcified granulomatous disease bilaterally. No acute pulmonary parenchymal or pleural abnormality. No significant abnormality of the bony thorax. XR/XR chest 2V* [id number] IMPRESSION: No acute chest abnormality.
== END 2024-08-20 13:22 | disposition home or self-care (01) ==
LOC: RAD 13:22
PROVIDERS: PCP Family Medicine; Visit Provider Nurse Practitioner Family
DX: R05.8 Other specified cough (principal); J06.9 Acute upper respiratory infection, unspecified; J84.10 Pulmonary fibrosis, unspecified
CPT/HCPCS: 71046

== ENCOUNTER 2024-08-25 10:57 | Outpatient (CLI) | payer MEDICARE, MEDICAID, SELFPAY ==
[2024-08-25 11:11] VITALS: PULSE 80; RESP 18; O2SAT 97
[2024-08-25] MEDS: albuterol 2.5 mg/3 mL Neb INHALATION (11:11)
[2024-08-25 11:16] VITALS: PULSE 82
== END 2024-08-25 10:58 | disposition home or self-care (01) ==
LOC: RT 10:57
PROVIDERS: PCP Family Medicine; Visit Provider Nurse Practitioner Family
DX: R06.00 Dyspnea, unspecified (principal)
CPT/HCPCS: 94060; J7613

== ENCOUNTER → 2024-08-29 09:16 | Outpatient (BNVA) | payer MEDICARE, MEDICAID, SELFPAY | PROVIDERS: PCP Family Medicine; Visit Provider Nurse Practitioner Family | DX: L30.8 Other specified dermatitis (principal); L73.2 Hidradenitis suppurativa; R20.8 Other disturbances of skin sensation | CPT/HCPCS: 99214 ==

== ENCOUNTER 2024-09-10 15:27 | Emergency (ER) | payer MEDICARE, MEDICAID, SELFPAY ==
[2024-09-10 15:30] VITALS: PULSE 72; RESP 16; TEMP 37.1; O2SAT 100; BMI 41.1
--- NOTE | 2024-09-10 15:44 | W.ED.SKABFB ---
HPI - Skin/Abscess/Foreign Bdy General: Chief complaint: Skin/Abscess/Foreign Body Stated complaint: spot on breast Time Seen by Provider: 09/10/24 15:32 Source: patient Mode of arrival: ambulatory Limitations: no limitations History of Present Illness: 44-year-old female who states that she has had an abscess to her left breast since Sunday states she has been on doxycycline abscess is grown she has not had it in size she is having some pain at the site denies any drainage denies any fever. Associated symptoms: Deny chills, fever(s), nausea or vomiting Related Data Home Medications Medication Instructions Recorded Confirmed albuterol sulfate 90 mcg/actuation 2 puff inhalation Q6H PRN 07/05/20 07/10/24 aerosol inhaler (Ventolin HFA) Shortness Of Breath diphenhydramine HCl 25 mg capsule 25 mg PO TID PRN Itching 08/30/20 07/10/24 (Benadryl) metoprolol tartrate 25 mg tablet 12.5 mg PO BID@0600,199912/24/20 07/10/24 allopurinol 100 mg tablet 100 mg PO BID 06/29/21 07/10/24 atorvastatin 10 mg tablet (Lipitor) 40 mg PO DAILY 07/19/21 07/10/24 MARIJUANA 09/26/22 07/10/24 benzonatate 100 mg capsule 100 mg PO BID PRN 07/26/23 07/10/24 tirzepatide 2.5 mg/0.5 mL mg SUBCUT 11/13/23 07/10/24 subcutaneous pen injector (Oniunjohanny) acyclovir 200 mg capsule 200 mg PO TID 06/26/24 07/10/24 cyclobenzaprine 5 mg tablet 5 mg PO TID PRN 06/26/24 07/10/24 Previous Rx's Medication Instructions Recorded Sole Supports #1 ea 01/22/20 clindamycin phosphate 1 % lotion 1 applic topical BID #60 mL 07/13/22 adalimumab 80 mg/0.8 mL 80 mg (0.8 mL) SUBCUT Q14D #2 ea 10/17/22 subcutaneous pen kit (Humira(CF) Pen) ibuprofen 800 mg tablet See Rx Instructions .Route 03/30/23 .COMPLEX #90 tabs acetaminophen 325 mg capsule 325 mg PO Q4H PRN fever or 04/05/23 Postoperative pain #60 caps diazepam 10 mg tablet 10 mg PO DAILY PRN anxiety #30 tabs 07/10/24 Allergies Allergy/AdvReac Type Severity Reaction Status Date / Time Cephalosporins Allergy Mild ALGY-Hives Verified 07/10/24 12:52 clindamycin Allergy ALGY-Hives Verified 07/10/24 12:52 morphine Allergy ALGY-Anaphy Verified 07/10/24 12:52 laxis Quinolones Allergy ALGY-Hives Verified 07/10/24 12:52 salicylates Allergy ALGY-Hives Verified 07/10/24 12:52 Sulfa (Sulfonamide Allergy ALGY-Anaphy Verified 07/10/24 12:52 Antibiotics) laxis Review of Systems Const: Denies: fever(s), chills, body aches or change in appetite ENMT: Denies: throat pain or dental pain Card: Denies: chest pain Resp: Denies: dyspnea GI: Denies: abdominal pain, nausea, vomiting or diarrhea Musc: Denies: neck pain or back pain Skin/Breast: Reports: erythema; Denies: rash Neuro: Denies: headache(s) [facility] ED PFSH: Medical History Leukocytosis Pelvic pain Menorrhagia Psychiatric care Urolithiasis Recurrent UTI Nicotine dependence, cigarettes, with unspecified nicotine-induced disorders Enrolled in chronic care management Major depression, recurrent, full remission Obsessive compulsive disorder Surgical History History of vaginal hysterectomy (~04/04/23) performed for AUB and pelvic pain-- Albino OZH; MARILIA 1 on cervix; o/w Neg pathology H/O left breast biopsy H/O laparoscopy (~04/06/22) Diagnostic laparoscopy Albino. Lysis of adhesions. Right ovarian cystectomy. Hysteroscopy with dilation and curettage via MyoSure H/O section x2 H/O lithotripsy S/P cholecystectomy S/P tubal ligation Family History Mother Hyperlipidemia Hypertension Grandmother Stroke maternal Denies family history of Colon cancer Ovarian cancer Diabetes Clotting disorder Heart disease Breast cancer Anesthesia complication Bleeding disorder Uterine cancer Thyroid disease Social History Smoking and tobacco/nicotine status: current every day tobacco/nicotine user Female Reproductive History: Para: 2 Physical Exam Const: COMMON NORMALS: no acute distress, patient oriented x3 and healthy appearing HENMT: COMMON NORMALS: normocephalic and atraumatic HEAD & SCALP: normocephalic and atraumatic Eye: COMMON NORMALS: conjunctivae normal CONJUNCTIVA: Yes conjunctivae normal Neck/C-Spine: COMMON NORMALS: full ROM and supple Resp: COMMON NORMALS: normal respiratory effort Cardio: COMMON NORMALS: regular rate RATE: regular rate Extremity: COMMON NORMALS: normal to inspection and full ROM Neuro: COMMON NORMALS: patient oriented x3, moves all extremities and no focal motor deficits Psych: COMMON NORMALS: mental status grossly normal, Normal thought process present and cooperative THOUGHT PROCESS: Normal thought process present Skin: NARRATIVE SKIN EXAM: 3 cm abscess noted to the left breast Procedures Abscess I/D Site: other (breast) Side (if applicable): left Local Anesthetic: lidocaine 1% Amount of anesthesia used (mL): 8 Technique: incised with #11 blade Packing used?: none Course Vital Signs: Vital signs: Vital Signs Temperature 98.8 F 09/10/24 15:30 Pulse Rate 72 09/10/24 15:30 Respiratory Rate 16 09/10/24 15:30 Pulse Oximetry 100 09/10/24 15:30 Oxygen Delivery Me thod Room Air 09/10/24 15:30 MDM - Skin/Abscess/Foreign Bdy Medicial Decision Making Patient presents with an abscess to her left breast abscess was incised and drained she is to continue her antibiotics she is stable for discharge follow-up with PCP return if worsening. Medical Records I reviewed the patient's medical records. No radiology studies performed this visit Discharge Plan Discharge Patient Disposition: Home Clinical Impression: Abscess of skin or subcutaneous tissue Condition: Stable Prescriptions: No Action (DME) Sole Supports Qty: 1 0RF Rx Instructions: As directed albuterol sulfate [Ventolin HFA] 90 mcg/actuation HFA aerosol inhaler 2 puff INHALATION Q6H PRN (Reason: Shortness Of Breath) diphenhydramine HCl [Benadryl] 25 mg capsule 25 mg PO TID PRN (Reason: Itching) atorvastatin [Lipitor] 10 mg tablet 40 mg PO DAILY allopurinol 100 mg tablet 100 mg PO BID (DME) MARIJUANA 0 .Route .MEDSUPPLY benzonatate 100 mg capsule 100 mg PO BID PRN acyclovir 200 mg capsule 200 mg PO TID cyclobenzaprine 5 mg tablet 5 mg PO TID PRN Mounjaro 2.5 mg/0.5 mL pen injector SUBCUT clindamycin phosphate 1 % lotion 1 applic TOPICAL BID Qty: 60 2RF Rx Instructions: Apply twice daily to affected areas in skin folds and on face diazepam 10 mg tablet 10 mg PO DAILY PRN (Reason: anxiety) Qty: 30 5RF Humira(CF) Pen 80 mg/0.8 mL pen injector kit 80 mg SUBCUT Q14D Qty: 2 6RF Rx Instructions: Maintenance: inject 80mg SC on day 29 following loading dose then every 2 weeks ibuprofen 800 mg tablet See Rx Instructions .ROUTE .COMPLEX Qty: 90 0RF Dose Instruction: TAKE ONE TABLET BY MOUTH THREE TIMES DAILY Rx Instructions: TAKE ONE TABLET BY MOUTH THREE TIMES DAILY metoprolol tartrate 25 mg tablet 12.5 mg PO BID@0600,2000 acetaminophen 325 mg capsule 325 mg PO Q4H PRN (Reason: fever or Postoperative pain) Qty: 60 0RF Discharge Orders: Discharge ED (Routine); Ordered 09/10/24 Ordered By: Alejandra Saucedo Referrals: Isabel Sainz DO [Primary Care Provider] - Discharge Diet: Advance as tolerated Discharge Activity: Resume usual activity Patient Instructions: Abscess (ED) Coding Level of Care Code ED Telephone Instrument Supervisor for Urvashi Jean
[2024-09-10 16:02] VITALS: PULSE 72; O2SAT 100
== END 2024-09-10 16:03 | disposition home or self-care (01) ==
PROVIDERS: Emergency Provider Emergency Medicine; PCP Family Medicine
DX: N61.1 Abscess of the breast and nipple (principal); Z72.0 Tobacco use
CPT/HCPCS: 10060; 87070; 99282

== ENCOUNTER → 2024-10-08 11:23 | Outpatient (BNVA) | payer MEDICARE, MEDICAID, SELFPAY | PROVIDERS: PCP Family Medicine; Visit Provider Nurse Practitioner Family | DX: D22.5 Melanocytic nevi of trunk (principal); L57.8 Other skin changes due to chronic exposure to nonionizing radiation; L73.2 Hidradenitis suppurativa; R20.8 Other disturbances of skin sensation | CPT/HCPCS: 11900; 99213 ==

== ENCOUNTER 2024-10-31 11:33 | Outpatient (CLI) | payer MEDICARE, SELFPAY | END 2024-10-31 11:34 | disposition home or self-care (01) | LOC: LAB 11:36 | PROVIDERS: PCP Family Medicine; Visit Provider Nurse Practitioner Family | DX: L73.2 Hidradenitis suppurativa (principal) | CPT/HCPCS: 86480; 99214 ==

== ENCOUNTER → 2024-11-17 09:22 | Outpatient (BNVA) | payer MEDICARE, MEDICAID, SELFPAY | PROVIDERS: PCP Family Medicine; Visit Provider Anesthesiology Pain Medicine | DX: M47.816 Spondylosis without myelopathy or radiculopathy, lumbar region (principal); M54.2 Cervicalgia | CPT/HCPCS: 99214 ==

== ENCOUNTER → 2024-11-24 14:43 | Outpatient (BNVA) | payer MEDICARE, MEDICAID, SELFPAY | PROVIDERS: PCP Family Medicine; Visit Provider Nurse Practitioner Family | DX: L23.9 Allergic contact dermatitis, unspecified cause (principal); L81.4 Other melanin hyperpigmentation; D22.5 Melanocytic nevi of trunk; L57.8 Other skin changes due to chronic exposure to nonionizing radiation; L85.3 Xerosis cutis | CPT/HCPCS: 99214 ==

== ENCOUNTER → 2024-12-24 13:19 | Outpatient (BNVA) | payer MEDICARE, OTHER, SELFPAY | PROVIDERS: PCP Family Medicine; Visit Provider Nurse Practitioner Family | DX: L23.9 Allergic contact dermatitis, unspecified cause (principal); L81.4 Other melanin hyperpigmentation; D22.5 Melanocytic nevi of trunk; L73.2 Hidradenitis suppurativa; R20.8 Other disturbances of skin sensation | CPT/HCPCS: 99214 ==

== ENCOUNTER → 2025-01-02 09:53 | Outpatient (BNVA) | payer MEDICARE, OTHER, SELFPAY | PROVIDERS: PCP Family Medicine; Visit Provider Nurse Practitioner Family | DX: L30.9 Dermatitis, unspecified (principal); L55.9 Sunburn, unspecified | CPT/HCPCS: 99213 ==

== ENCOUNTER → 2025-01-30 10:12 | Outpatient (BNVA) | payer MEDICARE, OTHER, SELFPAY | PROVIDERS: PCP Family Medicine; Visit Provider Nurse Practitioner Family | DX: L30.9 Dermatitis, unspecified (principal); L73.2 Hidradenitis suppurativa; R20.8 Other disturbances of skin sensation | CPT/HCPCS: 99214 ==

== ENCOUNTER → 2025-03-25 09:03 | Outpatient (BNVA) | payer MEDICARE, MEDICAID, SELFPAY | PROVIDERS: PCP Family Medicine; Visit Provider Nurse Practitioner Family | DX: L73.2 Hidradenitis suppurativa (principal); R20.8 Other disturbances of skin sensation | CPT/HCPCS: 99214 ==

== ENCOUNTER → 2025-04-06 08:42 | Outpatient (BNVA) | payer MEDICARE, MEDICAID, SELFPAY | PROVIDERS: PCP Family Medicine; Visit Provider Anesthesiology Pain Medicine | DX: R10.2 Pelvic and perineal pain (principal); M79.18 Myalgia, other site; M25.559 Pain in unspecified hip; M54.9 Dorsalgia, unspecified; M54.2 Cervicalgia; M47.816 Spondylosis without myelopathy or radiculopathy, lumbar region; M51.369 Other intervertebral disc degeneration, lumbar region without mention of lumbar back pain or lower extremity pain; F17.200 Nicotine dependence, unspecified, uncomplicated | CPT/HCPCS: 20553; 73521; 73522; 99214; J1010; J3490 ==

== ENCOUNTER 2025-04-11 01:39 | Emergency (ER) | payer OTHER, MEDICAID, SELFPAY ==
--- OUTSIDE RECORDS SUMMARY | 2025-04-11 01:46 | XMS_ITS ---
Laboratory report Created on: April 10, 2025 JEAN MARIE HUTCHISON : 1980 Sex: Female Author Name MITCHELL OSORIO [employer] Unknown PROBLEMS Problems List Code Description R39.9 R82.2 RESULTS Laboratory Orders Date Order Code Test 2025-04-02 [id number] URINE CULTURE, R OUTINE 2025-04-02 [id number] CBC WITH DIFFERE NTIAL/PLATELET 2025-04-02 [id number] COMP. METABOLIC PANEL (14) Laboratory Results Date LOINC Test Value Unit Reference Range Interpre tation 2025-04-02 630-4 URINE CULTURE, ROUTINE FINAL 2025-04-02 630-4 RESULT 1 NOGRO 2025-04-02 6690-2 WBC 13.3 X10E3/UL 3.4-10.8 H 2025-04-02 789-8 RBC 4.55 X10E6/UL 3.77-5.28 2025-04-02 718-7 HEMOGLOBIN 14.8 G/DL 11.1-15.9 2025-04-02 4544-3 HEMATOCRIT 44.4 % 34.0-46.6 2025-04-02 787-2 MCV 98 FL 79-97 H 2025-04-02 785-6 MCH 32.5 PG 26.6-33.0 2025-04-02 786-4 MCHC 33.3 G/DL 31.5-35.7 2025-04-02 788-0 RDW 12.7 % 11.7-15.4 2025-04-02 777-3 PLATELETS 328 X10E3/UL 777-674 8485-07-17 770-8 NEUTROPHILS 55 % 2025-04-02 736-9 LYMPHS 34 % 2025-04-02 5905-5 MONOCYTES 8 % 2025-04-02 713-8 EOS 2 % 2025-04-02 706-2 BASOS 1 % 2025-04-02 751-8 NEUTROPHILS (ABSOLUTE) 7.4 X10E3/UL 1.4-7.0 H 2025-04-02 731-0 LYMPHS (ABSOLUTE) 4.5 X10E3/UL 0.7-3.1 H 2025-04-02 742-7 MONOCYTES(ABSOLUTE) 1 X10E3/UL 0.1-0.9 H 2025-04-02 711-2 EOS (ABSOLUTE) .2 X10E3/UL 0.0-0.4 2025-04-02 704-7 BASO (ABSOLUTE) .1 X10E3/UL 0.0-0.2 2025-04-02 30478-7 IMMATURE GRANULOCYTES 0 % 2025-04-02 13833-0 IMMATURE GRANS (ABS) 0 X10E3/UL 0.0-0.1 2025-04-02 2345-7 GLUCOSE 84 MG/DL 70-99 2025-04-02 3094-0 BUN 10 MG/DL 6-24 2025-04-02 2160-0 CREATININE .69 MG/DL 0.57-1.00 2025-04-02 32314-1 EGFR 110 ML/MIN/1.73 >59 2025-04-02 3097-3 BUN/CREATININE RATIO 14 9-23 2025-04-02 2951-2 SODIUM 139 MMOL/L 370-075 3281-07-17 2823-3 POTASSIUM 3.9 MMOL/L 3.5-5.2 2025-04-02 2075-0 CHLORIDE 106 MMOL/L 96-106 2025-04-02 2028-9 CARBON DIOXIDE, TOTAL 21 MMOL/L 20-29 2025-04-02 72191-0 CALCIUM 9.5 MG/DL 8.7-10.2 2025-04-02 2885-2 PROTEIN, TOTAL 6.3 G/DL 6.0-8.5 2025-04-02 1751-7 ALBUMIN 4 G/DL 3.9-4.9 2025-04-02 14159-7 GLOBULIN, TOTAL 2.3 G/DL 1.5-4.5 2025-04-02 1975-2 BILIRUBIN, TOTAL .2 MG/DL 0.0-1.2 2025-04-02 6768-6 ALKALINE PHOSPHATASE 100 IU/L 44-121 2025-04-02 1920-8 AST (SGOT) 20 IU/L 0-40 2025-04-02 1742-6 ALT (SGPT) 22 IU/L 0-32
--- OUTSIDE RECORDS SUMMARY | 2025-04-11 01:47 | XMS_ITS | Data Portability ---
Author Organization [facility], [facility] Address [address] [place] [phone] Assessment No assessment recorded. Plan of Treatment Reminders Order Date Submit Date Provider Last Modified By Organization Details Last Modified Time Details Appointments None recorded. Lab urinalysis, complete 2023 024 [email or web address] [facility] ([facility]), [address] [place], [address], 4 14:37:59 culture, urine 2023 024 [employer] [facility], [address] [place] [address], [facility] [address] [place], [address], 4 21:19:56 Referral None recorded. Procedures None recorded. Surgeries None recorded. Imaging electrocard iogram 2022 023 [email or web address] [facility] ([facility]), [address] [place], [address], 3 15:53:31 Medication Orders doxycycline hyclate 100 mg capsule 2023 024 [facility] [place], [address] [place] [address], [address], 4 17:07:28 prednisone 20 mg tablet 2023 024 [facility], [address] [place] [address], [address], 4 17:07:29 ProAir HFA 90 mcg/actuati on aerosol inhaler 2023 024 [facility] [address], [address], 4 17:06:13 azithromyci n 250 mg tablet 2023 024 [facility] [address], [address], 4 17:07:29 tizanidine 4 mg capsule [address], [address], 16:07:35 Zofran 4 mg tablet 2023 024 [email or web address] Not available 14:15:39 Patient TargetsNo targets recorded. Patient InstructionsNo instructions recorded. Reason for Referral None Reported. Results Created Date Observation Date Name Description Value Unit Range Abnormal Flag Note LastModifiedBy Organization Detail LastModifiedTime 11/21/1911/22/2023 CULTU RE, URINE , ROUTI NE culture, urine, routine SEE NOTE CULTU RE, URINE , ROUTI NE Micro Numbe r: [id number] Test Statu s: Final Speci men Sourc e: Urine , clean catch Speci men Quali ty: Adequ ate Resul t: No Growt h Not Available [facility] [address] [place], [address], 11/22/2023 21:19:56 11/21/1911/21/2023 urina lysis , compl ete color yellow Not Available [facility] ([facility]) [address] [place], [address], 11/21/2023 13:30:24 11/21/19 24 11/21/2023 urina lysis , compl ete clarity clear clear Not Available [facility] ([facility]) [address] [place], [address], 11/21/2023 13:30:24 11/21/19 24 11/21/2023 urina lysis , compl ete glucose negati ve negati ve Not Available [facility] ([facility]) [address] [place], [address], 11/21/2023 13:30:24 11/21/19 24 11/21/2023 urina lysis , compl ete bilirubin negati ve negati ve Not Available [facility] ([facility]) [address] [place], [address], 11/21/2023 13:30:24 11/21/19 24 11/21/2023 urina lysis , compl ete ketones negati ve negati ve Not Available [facility] ([facility]) [address] [place], [address], 11/21/2023 13:30:24 11/21/19 24 11/21/2023 urina lysis , compl ete specific gravity 1.030 1.005- 1.025 Not Available [facility] ([facility]) [address] [place], [address], 11/21/2023 13:30:24 11/21/19 24 11/21/2023 urina lysis , compl ete pH 6.0 5.0-7. 0 Not Available [facility] ([facility]) [address] [place], [address], 11/21/2023 13:30:24 11/21/19 24 11/21/2023 urina lysis , compl ete protein negati ve Not Available [facility] ([facility]) [address] [place], [address], 11/21/2023 13:30:24 11/21/19 24 11/21/2023 urina lysis , compl ete uro 0.2 Not Available [facility] ([facility]) [address] [place], [address], 11/21/2023 13:30:24 11/21/19 24 11/21/2023 urina lysis , compl ete nitrate negati ve negati ve Not Available [facility] ([facility]) [address] [place], [address], 11/21/2023 13:30:24 11/21/19 24 11/21/2023 urina lysis , compl ete blood negati ve negati ve Not Available [facility] ([facility]) [address] [place], [address], 11/21/2023 13:30:24 11/21/19 24 11/21/2023 urina lysis , compl ete leukocytes negati ve negati ve Not Available [facility] ([facility]) [address] [place], [address], 11/21/2023 13:30:24 11/21/19 24 11/21/2023 urina lysis , compl ete WBC 3-4 0 Not Available [facility] ([facility]) [address] [place], [address], 11/21/2023 13:30:24 11/21/19 24 11/21/2023 urina lysis , compl ete RBC 1-2 0 Not Available [facility] ([facility]) [address] [place], [address], 11/21/2023 13:30:24 11/21/19 24 11/21/2023 urina lysis , compl ete epi cells 4-5 0 Not Available [facility] ([facility]) [address] [place], [address], 11/21/2023 13:30:24 11/21/19 24 11/21/2023 urina lysis , compl ete bacteria - Not Available [facility] ([facility]) [address] [place], [address], 11/21/2023 13:30:24 11/21/19 24 11/21/2023 urina lysis , compl ete other 1+ mucus Not Available [facility] ([facility]) [address] [place], [address], 11/21/2023 13:30:24 07/16/20 23 07/16/2023 elect yosvany geller am No observ ation record ed. [email or web address] [facility] ([facility]) [address] [place], [address], 07/16/2023 17:40:28 Result Notes None recorded. Problems Name Problem SNOMED Code Status Onset Date Resolution Date Notes Provider Name and Address Organization Details Recorded Time Kidney stone 63336732 Active 018 kidney stones; 09/25/19 18 12:26PM by Mandi Adan LPN, Office Visit; Promoted ; acuity set as *; Not Available [facility] 3 03:07:20 Asthma 783489390 Active 018 asthma; 09/25/19 18 12:26PM by Mandi Adan LPN, Office Visit; Promoted ; acuity set as *; Not Available [facility] 3 03:07:21 Problem Notes None recorded. Procedures Surgical History Date Name Laterality Status Provider Name and Address Organization Details Recorded Time section [facility] 16:40:15 [facility]2024 16:40:21 [facility]bladder [facility]2024 16:40:31 Breast reduction completed [facility] 08/15/2024 16:40:38 Cricopharyngeal myotomy completed [facility] 08/15/2024 16:41:00 Imaging Results None recorded. Procedure Notes None recorded. Medical Equipment None Reported. Allergies Allergen ID Allergen Name Allergen Category Reaction Reaction Severity Criticality Documentation Date Start Date Code Code System Note Provider Name and Address Organization Details Recorded Time 69146 Keflex medicatio n Not available Not available Not available 04/14/2023 39522 7 RxNorm Jackie Edignacio [facility] 4 13:19:04 92313 Substance with sulfonami de structure and antibacte rial mechanism of action (substanc e) medicatio n anaphylax is severe high 04/14/2023 61980 8003 SNOMED Shyanna Christina [facility] 16:46:58 50533 erythromy allie medicatio n Not available Not available Not available 04/14/2023 4053 RxNorm Jackie Dee Dee [facility] 13:19:09 89572 Product containin g penicilli n (product) medicatio n Not available Not available Not available 04/14/2023 40925 8001 SNOMED Jackie Dee Dee [facility] 4 13:19:18 85079 morphine sulfate medicatio n anaphylax is severe high 04/14/2023 19358 RxNorm Jackie ignacio [facility] 4 13:17:13 75685 Medicinal product containin g cephalosp dariusz and acting as antibacte rial agent (product) medicatio n hives mild low 11/21/2023 89518 9009 SNOMED Shyanna Christina [facility] 12/23/202 4 16:46:50 49211 Quinazoli ne (substanc e) medicatio n hives mild low 11/21/2023 62506 0002 SNOMED Francisca Núñezs [facility], Jay 4 16:46:53 32036 salicylat e medicatio n hives mild low 11/21/2023 9522 RxNorm Francisca Christina [facility], LSunniLSunniCSunni 4 16:46:55 Medications Name Sig Start Date Stop Date Status Note LastModified by Organization Details LastModified Time lidocaine /diphenhy dramine/a luminum/m agnesium/ simethico ne/nystat in SWISH AND EXPECTOR ATE 10ML FOUR TIMES DAILY 11/20 completed Not Available Not Available Not Available medroxypr ogesteron e 10 mg tablet TAKE 1 TABLET BY MOUTH EVERY DAY FOR OLIGOMEN ORRHEA. START TAKING AFTER ESTROGEN 11/20 completed Not Available Not Available Not Available atorvasta tin 40 mg tablet TAKE ONE TABLET BY MOUTH EVERY EVENING active Not Available Not Available No t Available doxepin 50 mg capsule at bedtime 11/20 completed 0; Recorded 11/01/19 13 4:12PM by Hellen Daugherty CMT, Office Visit; Not Available Not Available Not Available doxycycli ne hyclate 100 mg capsule Take 1 capsule twice a day by oral route for 7 days. 2023 active Not Available Not Available Not Avai lable Pain Reliever (acetamin ophen) 325 mg tablet TAKE 1 TABLET BY MOUTH EVERY 4 HOURS NEEDED FOR fever or postop pain 11/20 completed Not Available Not Available Not Available cetirizin e 10 mg tablet qhs 11/20 completed 0; Recorded 09/25/19 18 12:26PM by Mandi Adan LPN, Office Visit; Not Available Not Available Not Available azithromy allie 250 mg tablet Z-javed, take as package directs 09/08 completed Not Available Not Available Not Available ibuprofen 800 mg tablet q 8 prn active 0; Recorded 09/25/19 18 12:23PM by Mandi Adan LPN, Office Visit; Not Available Not Available Not Available fluconazo le 150 mg tablet TAKE 1 TABLET BY MOUTH today and wait FIVE DAYS and take 2nd tablet 11/20 completed Not Available Not Available Not Available benzonata te 200 mg capsule take 1 capsule BY MOUTH EVERY 8 HOURS NEEDED FOR cough 11/20 completed Not Available Not Available Not Available valacyclo vir 1 gram tablet qd prn 11/20 completed 0; Recorded 09/25/19 18 12:20PM by Mandi Adan LPN, Office Visit; Not Available Not Available Not Available hydrocodo ne 5 mg-acetam inophen 325 mg tablet TAKE 1 TO 2 TABLETS BY MOUTH every 5 hours NEEDED FOR PAIN 11/20 completed Not Available Not Available Not Available famotidin e 40 mg tablet TAKE 1 TABLET BY MOUTH TWICE DAILY active Not Available Not Available No t Available prednison e 20 mg tablet Take 2 tablets every day by oral route for 6 days. 09/08 completed Not Available Not Available Not Available spironola ctone 100 mg tablet TAKE ONE TABLET BY MOUTH DAILY IN THE MORNING 11/20 completed Not Available Not Available Not Available Nexium 40 mg capsule,d elayed release qd 11/20 completed 0; Recorded 09/25/19 18 12:22PM by Mandi Adan LPN, Office Visit; Not Available Not Available Not Available acyclovir 400 mg tablet TAKE 1 TABLET BY MOUTH THREE TIMES DAILY FOR outbreak 11/20 completed Not Available Not Available Not Available allopurin ol 100 mg tablet TAKE 2 TABLETS BY MOUTH EVERY DAY active Not Available Not Available No t Available triamcino lone acetonide 0.1 % topical cream apply a small amount TO affected area TWICE DAILY NEEDED 11/20 completed Not Available Not Available Not Available Zofran 4 mg tablet Take 4 mg by oral route. 2023 active Not Available Not Available Not Avai lable metoclopr amide 5 mg tablet TAKE 1 TABLET BY MOUTH EVERY 8 HOURS NEEDED FOR nausea active Not Available Not Available No t Available doxycycli ne monohydra te 100 mg capsule take 1 capsule BY MOUTH TWICE DAILY for 10 days 11/20 completed Not Available Not Available Not Available erythromy allie 5 mg/gram (0.5 %) eye ointment apply 1cm ribbon TO affected lower eyelid FOUR TIMES DAILY for 7 days 11/20 completed Not Available Not Available Not Available promethaz ine 25 mg tablet TAKE 1 TABLET BY MOUTH THREE TIMES DAILY NEEDED COUGH 11/20 completed Not Available Not Available Not Available gabapenti n 300 mg capsule take 1 capsule BY MOUTH THREE TIMES DAILY 11/20 completed Not Available Not Available Not Available omeprazol e 20 mg capsule,d elayed release take 1 capsule BY MOUTH TWICE DAILY ON empty stomach 11/20 completed Not Available Not Available Not Available acyclovir 200 mg capsule TAKE 1 CAPSULE BY MOUTH FIVE TIMES A DAY 11/20 completed Not Available Not Available Not Available mupirocin 2 % topical ointment APPLY TOPICALL Y TWICE DAILY FOR TWO WEEKS 11/20 completed Not Available Not Available Not Available estradiol 0.5 mg tablet TAKE 1 TABLET BY MOUTH EVERY DAY FOR 14 DAYS 11/20 completed Not Available Not Available Not Available azelastin e 137 mcg (0.1 %) nasal spray USE 2 SPRAYS IN EACH NOSTRIL TWICE DAILY 11/20 completed Not Available Not Available Not Available diazepam 10 mg tablet TAKE 1 TABLET BY MOUTH EVERY DAY NEEDED FOR ANXIETY active Not Available Not Available No t Available methylpre dnisolone 4 mg tablets in a dose pack FOLLOW PACKAGE DIRECTIO NS 11/20 completed Not Available Not Available Not Available topiramat e 100 mg tablet TAKE 1 TABLET BY MOUTH TWICE DAILY. DO not take with gabapent in 11/20 completed Not Available Not Available Not Available doxycycli ne hyclate 100 mg tablet TAKE 1 TABLET BY MOUTH TWICE DAILY for 10 days 11/20 completed Not Available Not Available Not Available amoxicill in 500 mg-potass ium clavulana te 125 mg tablet TAKE 1 TABLET BY MOUTH TWICE DAILY FOR SEVEN DAYS 11/20 completed Not Available Not Available Not Available clindamyc in 1 % lotion apply TO rash ONCE DAILY 08/15 completed Not Available Not Available Not Available cyclobenz aprine 5 mg tablet TAKE 1 & 1/2 TABLETS BY MOUTH EVERY 8 HOURS NEEDED FOR PAIN 11/20 completed Not Available Not Available Not Available metformin ER 750 mg tablet,ex tended release 24 hr TAKE 1 TABLET BY MOUTH EVERY DAY with breakfas t 11/20 completed Not Available Not Available Not Available metoprolo l tartrate 25 mg tablet TAKE 1 TABLET BY MOUTH TWICE DAILY active Not Available Not Available No t Available nitrofura ntoin monohydra te/macroc rystals 100 mg capsule take 1 capsule BY MOUTH EVERY TWELVE HOURS for 7 days. must take with meal/miguel d 11/20 completed Not Available Not Available Not Available tizanidin e 4 mg capsule Take 1 capsule every 8 hours by oral route. 2023 active Not Available Not Available Not Avai lable EpiPen prn active 0; Recorded 09/25/19 18 12:26PM by Mandi Adan LPN, Office Visit; Not Available Not Available Not Available Diflucan today 11/20 completed Recorded 11/11/19 13 1:10PM by Teresa Sutherland RN, Phone Encounte r; Refill Quantity : 0; Not Available Not Available Not Available minocycli ne two times daily 11/20 completed for infectio n; Recorded 11/01/19 13 5:12PM by RAMBO Solorio, Office Visit; Refill Quantity : 0; Not Available Not Available Not Available Robaxin 11/20 completed 0; Recorded 09/25/19 18 12:35PM by RAMBO Bermudez, Office Visit; Not Available Not Available Not Available clonazepa m two times daily, as needed active 0; Recorded 11/01/19 13 4:12PM by Hellen Daugherty CMT, Office Visit; Not Available Not Available Not Available Relpax bid 11/20 completed 0; Recorded 09/25/19 18 12:22PM by Mandi Adan LPN, Office Visit; Not Available Not Available Not Available ProAir HFA 90 mcg/actua tion aerosol inhaler 2 puffs q 3-4 hours PRN cough/wh eezing/s ob 2023 active Not Available Not Available Not Avai lable Pristiq 100 mg tablet,ex tended release daily active 0; Recorded 11/01/19 13 4:12PM by Hellen Daugherty CMT, Office Visit; Not Available Not Available Not Available diclofena c 1 % topical gel APPLY SMALL AMOUNT TO Affected area FOUR TIMES DAILY 11/20 completed Not Available Not Available Not Available Orilissa 150 mg tablet TAKE 1 TABLET BY MOUTH EVERY DAY FOR pelvic pain 11/20 completed Not Available Not Available Not Available Humira(CF ) Pen 80 mg/0.8 mL subcutane ous kit Inject 80mg subcutan eously EVERY 14 DAYS active Not Available Not Available No t Available Mounjaro 2.5 mg/0.5 mL subcutane ous pen injector INJECT 0.5ML SUBCUTAN EOUSLY every week FOR FOUR WEEKS THEN CALL FOR DOSE INCREASE active Not Available Not Available No t Available Vitals Date Recorded Body height Body mass index (BMI) Body weight Body temperature Respiratory rate Oxygen saturation Oxygen saturation in Arterial blood by Pulse oximetry Heart rate Systolic And Diastolic Provider Name and Address Organization Details Last Updated DateTime 4 162.56 cm 45.5 kg/m2 056038. 7 g 96.9 [degF] 19 /min 99 % 99 % 68 /min 130/88 mm[Hg] Jackie Fune[facility] 4 13:29:30 Date Recorded Body height Body mass index (BMI) Body weight Oxygen saturation Oxygen saturation in Arterial blood by Pulse oximetry Heart rate Respiratory rate Body temperature Systolic And Diastolic Provider Name and Address Organization Details Last Updated DateTime 4 162.56 cm 41.4 kg/m2 509965. 76 g 97 % 97 % 88 /min 16 /min 99.4 [degF] 138/90 mm[Hg] Elinor Shah [facility] 4 16:38:43 Date Recorded Body height Body mass index (BMI) Body weight Body temperature Heart rate Oxygen saturation Oxygen saturation in Arterial blood by Pulse oximetry Systolic And Diastolic Provider Name and Address Organization Details Last Updated DateTime 4 162.56 cm 41.2 kg/m2 685047. 17 g 97.9 [degF] 75 /min 97 % 97 % 136/82 mm[Hg] Shruthi Lyon [facility] 4 16:47:30 Social History None recorded. Functional Status None recorded. Mental Status None recorded. Family History Nothing Reported. Medical History No medical history recorded. Gynecological HistoryNo gynecological history recorded. Obstetrics History GPAL:G 0 P 0 0 0 0 Past Encounters Encounter ID Performer Location Encounter Start Date Encounter Closed Date Diagnosis/Indication Diagnosis SNOMED-CT Code Diagnosis ICD10 Code Diagnosis Note [id number] Parag King MD [facility] ([facility]) [address] [place] [phone] 07/16/2023 11:49:39 07/23/2023 14:57:58 Preprocedural examination done 3841524635 72530 Z01.976 [id number] PRANEETH GIL [facility] ([facility]) [address] [place] [phone] 11/21/2023 12:49:49 11/21/2023 15:17:04 Acute low back pain 576024287 M54.50 Neg urine today. Discussed use of heating pad, slow stretches, and muscle relaxer. Return if you develp worsening pain, fever, new symptoms or concerns. Nausea 131253421 R11.0 [id number] PRANEETH GIL [facility] ([facility]) [address] [place] [phone] 08/15/2024 16:32:30 08/15/2024 16:57:51 Acute bacterial bronchitis 155819084 J20.9 Discussed use of otc medication s for symptom management .Push oral fluids and rest.If you develop fever, sob, or start feeling worse then return for re-evaluat ion. [id number] PRANEETH GIL [facility] ([facility]) [address] [place] [phone] 09/08/2024 16:21:14 09/08/2024 17:11:34 Cellulitis of breast 36221116 N61.0 Discussed use of warm compress, antibiotic , and tylenol/mo maynor for discomfort . if you develop fever or worsening signs of infection then return for re-evaluat ion Health Concerns Section Related Observation LastModified by Organization Detai ls LastModified Time None Recorded Concern Status LastModified by Organization Details LastModified Time None Recorded Advance Directives Directive None Recorded Payers Insurance Date Sequence Insurance Name Policy Number Policy Silvestre Covered Member ID Silvestre Member ID Guarantor Name 09/08/2024 2 [place] Maria Alejandra Plata Emiliano [id number] Maria Alejandra Plata Emiliano 09/08/2024 1 [facility] [place]/A DVANTAGE - PPO) Maria Alejandra Plata Emiliano [id number] Maria Alejandra Plata Emiliano 09/08/2024 [place] [facility] ([facility]) Maria Alejandra Plata Emiliano [id number] Maria Alejandra Plata Emiliano Notes Date Note Type Note Provider Name and Address Organization Details Recorded Time 11/21/2023 text/html Lower Urinary Tr act Symptoms (LUTS)Reported by PatientHPIFor context, patient reportsabnormal voiding frequencybut reportsdenies excessive fluid intake,changes in voiding affect quality of life,history of urinary tract infection, andhistory of kidney stones. For associated symptoms, patient reportsabdominal pain,low back pain,nausea, andperineal symptoms: painbut reportsno diarrhea,no vomiting,no straining, andno vaginal itching or burning. For location, patient reportsbilateral. For quality, patient reportstender,aching,c ontinuous, andloss of function(constant in lower back; intermittent movement up to frontreports tenderness in right side and not left; reports abdomen is tender). For severity, patient reportsworsening,mild, andmoderate. For onset/timing, patient reports4-10 times a day. For duration, patient reports< 1 week. For alleviating factors, (motrin, tylenol).stretched with no improvement. right side worse than left. hx of kidney stones. has some nausea. taken monistat for 7 days with no relief of symptoms.has nausea.ROS as noted in the HPI RAMBO LOCK [address] [place], [address], [facility] 11/21/2023 15:01:56 08/15/2024 text/html CoughReported by PatientROS as noted in the HPI walk in patientpatient is here today for cough, and wheezing that started 08/03/24, patient said that she has been getting worse. Has been taking coracidin and tessalon. Has been on augmentin for an infection in her nose. RAMBO LOCK [address] [place], [address], [facility], [place]. 08/15/2024 16:55:04 09/08/2024 text/html ROS as noted in the HPI walk in ptPt presents with redness and tenderness to her left breast that started yesterday. states this occurs frequently and she is followed by a label coder. When the infection starts doxy is used to treat the infection. denies fever or nipple discharge. PRANEETH GIL, RAMBO [address] [place], [address], [facility], [place]. 09/09/2024 18:56:22 OBGyn Episode No OBEpisode recorded.
[2025-04-11 02:10] VITALS: BP 115/72; PULSE 80; RESP 20; TEMP 36.4; O2SAT 99; BMI 29.2
[2025-04-11 03:31] VITALS: BP 106/74; PULSE 74; O2SAT 96
[2025-04-11 05:00] VITALS: PULSE 58; O2SAT 94
[2025-04-11] MEDS: ondansetron 2 mg/ML SDV 2 mL 8 MG IVP (05:14)
--- NOTE | 2025-04-11 05:14 | W.ED.WOUNDLC ---
HPI - Wound/Laceration General: Chief Complaint: Wound/Laceration Stated Complaint: Rectum is swollen and Painful Time Seen by Provider: 04/11/25 04:52 History of Present Illness: 44 year old female with a history of hidradenitis suppurativa. She presents with a painful swollen nodule near her left gluteal fold. There has been no drainage. She has had other areas that have drained, and currently are not painful. She has had no fever. She has been nauseated. No vomiting. She has not been on antibiotics recently. Related Data Home Medications ?Medication ?Instructions ?Recorded ?Confirmed albuterol sulfate 90 mcg/actuation 2 puff inhalation Q6H PRN 07/05/20 04/06/25 aerosol inhaler (Ventolin HFA) Shortness Of Breath diphenhydramine HCl 25 mg capsule 25 mg PO TID PRN Itching 08/30/20 04/06/25 (Benadryl) metoprolol tartrate 25 mg tablet 12.5 mg PO BID@0600,199912/24/20 04/06/25 allopurinol 100 mg tablet 100 mg PO BID 06/29/21 04/06/25 atorvastatin 10 mg tablet (Lipitor) 40 mg PO DAILY 07/19/21 04/06/25 MARIJUANA 09/26/22 04/06/25 tirzepatide 2.5 mg/0.5 mL mg SUBCUT 11/13/23 04/06/25 subcutaneous pen injector (Mounpauloro) acyclovir 200 mg capsule 200 mg PO TID 06/26/24 04/06/25 hydroxyzine HCl 100 mg tablet 300 mg PO QID 12/02/24 04/06/25 secukinumab 150 mg/mL subcutaneous mg SUBCUT .Weekly 12/02/24 04/06/25 syringe (Cosentyx 300 mg/2 Syringes () Previous Rx's ?Medication ?Instructions ?Recorded Sole Supports #1 ea 01/22/20 clindamycin phosphate 1 % lotion 1 applic topical BID #60 mL 07/13/22 ibuprofen 800 mg tablet See Rx Instructions .Route 03/30/23 .COMPLEX #90 tabs diazepam 10 mg tablet 10 mg PO DAILY PRN anxiety #30 tabs 12/02/24 amoxicillin 875 mg-potassium 1 tab PO BID #20 tabs 07/26/25 clavulanate 125 mg tablet hydrocodone 5 mg-acetaminophen 325 1 tab PO Q8H PRN pain #7 tabs 04/11/25 mg tablet ondansetron 4 mg disintegrating 4 mg PO Q6H PRN nausea and 04/11/25 tablet vomiting #14 tabs Allergies Allergy/AdvReac Type Severity Reaction Status Date / Time Cephalosporins Allergy Mild ALGY-Hives Verified 02/26/25 08:10 clindamycin Allergy ALGY-Hives Verified 02/26/25 08:10 morphine Allergy ALGY-Anaphy Verified 02/26/25 08:10 laxis Quinolones Allergy ALGY-Hives Verified 02/26/25 08:10 salicylates Allergy ALGY-Hives Verified 02/26/25 08:10 Sulfa (Sulfonamide Allergy ALGY-Anaphy Verified 02/26/25 08:10 Antibiotics) laxis PFS ED PFSH: Medical History (Updated 04/11/25 @ 05:47 by Andrew Eugene DO) Leukocytosis Pelvic pain Menorrhagia Psychiatric care Urolithiasis Recurrent UTI Nicotine dependence, cigarettes, with unspecified nicotine-induced disorders Enrolled in chronic care management Major depression, recurrent, full remission Obsessive compulsive disorder Surgical History History of vaginal hysterectomy (~04/04/23) performed for AUB and pelvic pain-- [facility]; MARILIA 1 on cervix; o/w Neg pathology H/O left breast biopsy H/O laparoscopy (~04/06/22) Diagnostic laparoscopy [facility]ino. Lysis of adhesions. Right ovarian cystectomy. Hysteroscopy with dilation and curettage via MyoSure H/O section x2 H/O lithotripsy S/P cholecystectomy S/P tubal ligation Family History Mother Hyperlipidemia Hypertension Grandmother Stroke maternal Denies family history of Colon cancer Ovarian cancer Diabetes Clotting disorder Heart disease Breast cancer Anesthesia complication Bleeding disorder Uterine cancer Thyroid disease Social History Smoking and tobacco/nicotine status: current every day tobacco/nicotine user Female Reproductive History: Para: 2 Physical Exam Const: COMMON NORMALS: no acute distress GENERAL APPEARANCE: cooperative; not ill appearing and not frail appearing HENMT: COMMON NORMALS: normocephalic, atraumatic and Normal external nose present HEAD & SCALP: normocephalic and atraumatic FACE & SINUS: normal facial exam and face symmetric NOSE: Normal external nose present Eye: COMMON NORMALS: Equal, round and reactive pupils present and EOMs intact bilaterally PUPIL: Yes Equal, round and reactive pupils present Neck/C-Spine: GENERAL: Yes trachea midline Chest: CHEST: Yes Symmetrical chest wall rise Resp: COMMON NORMALS: normal respiratory effort, No retractions, No use of accessory muscles and clear to auscultation bilaterally AUSCULTATION: clear to auscultation bilaterally Cardio: COMMON NORMALS: regular rate and regular rhythm RATE: regular rate RHYTHM: regular rhythm Neuro: XUAN COMA SCALE: document GCS findings Xuan coma scale eye opening: Spontaneous Xuan coma scale verbal response: Orientated Xuan coma scale motor response: Obey commands [place] coma scale total score: 15 SENSORY EXAM: Yes extremities (intact) Psych: COMMON NORMALS: speech normal SPEECH: Yes normal speech Skin: NARRATIVE SKIN EXAM: Examination of the perennial area reveals multiple skin lesions at different clinical ages. There is one near the right pubis, that has opened, has been draining, is mildly red, and mildly tender. Another near the left gluteal fold has not opened. It is red, very tender, and mildly fluctuant. It measures about 3 to 4 centimeters. Procedures Abscess I/D Site: hever-rectal Side (if applicable): left Sedation/analgesia: fentanyl Local Anesthetic: lidocaine 1% and bupivacaine 0.25% Amount of anesthesia used (mL): 6 Technique: incised with #11 blade Amount of fluid expressed (mL): 10 Irrigation: No Packing used?: none Course Vital Signs: Vital signs: Vital Signs Temperature 97.6 F 04/11/25 02:10 Pulse Rate 59 L 04/11/25 06:17 Respiratory Rate 16 04/11/25 05:23 Blood Pressure 102/86 04/11/25 06:17 Pulse Oximetry 98 04/11/25 06:17 Oxygen Delivery Me thod Room Air 04/11/25 05:00 MDM - Wound/Laceration Medical Decision Making Cutaneous Abscess related to hidradenitis suppurativa incised and drained near the left gluteal fold. There were no complications. No packing is needed. She has placed on augmentin. Return for new or worsening symptoms. No radiology studies performed this visit Discharge Plan Discharge Patient Disposition: Home Clinical Impression: Abscess of skin, Hidradenitis suppurativa of anogenital region Condition: Stable Prescriptions: New amoxicillin-pot clavulanate 875-125 mg tablet 1 tab PO BID Qty: 20 0RF hydrocodone-acetaminophen 5-325 mg tablet 1 tab PO Q8H PRN (Reason: pain) Qty: 7 0RF ondansetron 4 mg tablet,disintegrating 4 mg PO Q6H PRN (Reason: nausea and vomiting) Qty: 14 0RF No Action (DME) Sole Supports Qty: 1 0RF Rx Instructions: As directed albuterol sulfate [Ventolin HFA] 90 mcg/actuation HFA aerosol inhaler 2 puff INHALATION Q6H PRN (Reason: Shortness Of Breath) diphenhydramine HCl [Benadryl] 25 mg capsule 25 mg PO TID PRN (Reason: Itching) atorvastatin [Lipitor] 10 mg tablet 40 mg PO DAILY allopurinol 100 mg tablet 100 mg PO BID (DME) MARIJUANA 0 .Route .MEDSUPPLY acyclovir 200 mg capsule 200 mg PO TID Mounjaro 2.5 mg/0.5 mL pen injector SUBCUT clindamycin phosphate 1 % lotion 1 applic TOPICAL BID Qty: 60 2RF Rx Instructions: Apply twice daily to affected areas in skin folds and on face Cosentyx (2 Syringes) 150 mg/mL syringe SUBCUT .Weekly hydroxyzine HCl 100 mg tablet 300 mg PO QID diazepam 10 mg tablet 10 mg PO DAILY PRN (Reason: anxiety) Qty: 30 5RF ibuprofen 800 mg tablet See Rx Instructions .ROUTE .COMPLEX Qty: 90 0RF Dose Instruction: TAKE ONE TABLET BY MOUTH THREE TIMES DAILY Rx Instructions: TAKE ONE TABLET BY MOUTH THREE TIMES DAILY metoprolol tartrate 25 mg tablet 12.5 mg PO BID@0600,2000 Discharge Orders: Discharge ED (Routine); Ordered 04/11/25 Ordered By: Andrew Eugene Referrals: Isabel Sainz DO [Primary Care Provider, [facility]ER] - 4-7 days Patient Instructions: Abscess (ED), Hidradenitis Suppurativa (ED), Opioid Safety, Pain Management, Patient Portal & Amber Instructions Activity Restrictions/Additional Instructions: Antibiotics as directed. Pain and nausea medication as needed. Heat may help dry out infection. Return for problems such as vomiting liquids or medications, temperature greater than 100 despite 2-3 more doses of antibiotics, any other concerning symptoms. Follow-up with your doctor next week for wound check. Print Language: Scottish Coding Level of Care Code ED Mri Special Procedures Technologist for Urvashi Jean
[2025-04-11 05:17] VITALS: BP 95/50
[2025-04-11 05:23] VITALS: RESP 16
[2025-04-11] MEDS: fentaNYL 50 mcg/mL INJ 2mL 100 MCG IVP (05:23)
[2025-04-11] MEDS: diphenhydrAMINE 50 mg/mL SDV 1mL 25 MG IVP (05:45)
[2025-04-11] MEDS: BUPivacaine 0.5% INJ 10 mL INJECTION (05:45)
[2025-04-11 06:17] VITALS: BP 102/86; PULSE 59; O2SAT 98
== END 2025-04-11 06:19 | disposition home or self-care (01) ==
PROVIDERS: Emergency Provider Emergency Medicine; PCP Family Medicine
DX: K61.1 Rectal abscess (principal); L73.2 Hidradenitis suppurativa; Z72.0 Tobacco use
CPT/HCPCS: 10060; 96374; 96375; 99284; J1200; J2405; J3010; J3490; J9999

== ENCOUNTER → 2025-04-15 09:29 | Outpatient (BNVA) | payer OTHER, MEDICAID, SELFPAY | PROVIDERS: PCP Family Medicine; Visit Provider Nurse Practitioner Family | DX: L73.2 Hidradenitis suppurativa (principal); R20.8 Other disturbances of skin sensation; T81.40XA Infection following a procedure, unspecified, initial encounter; X58.XXXA Exposure to other specified factors, initial encounter | CPT/HCPCS: 10060; 87070; 87075; 87205; 99214 ==

== ENCOUNTER → 2025-04-22 09:10 | Outpatient (BNVA) | payer MEDICARE, MEDICAID, OTHER, SELFPAY | PROVIDERS: PCP Family Medicine; Visit Provider Nurse Practitioner Family | DX: L73.2 Hidradenitis suppurativa (principal); R20.8 Other disturbances of skin sensation; L74.519 Primary focal hyperhidrosis, unspecified | CPT/HCPCS: 99214 ==

== ENCOUNTER → 2025-04-28 15:34 | Outpatient (BNVA) | payer MEDICARE, MEDICAID, SELFPAY | PROVIDERS: PCP Family Medicine; Visit Provider Nurse Practitioner Family | DX: B37.31 Acute candidiasis of vulva and vagina (principal); L73.2 Hidradenitis suppurativa; R20.8 Other disturbances of skin sensation | CPT/HCPCS: 99214 ==

== ENCOUNTER 2025-05-11 07:58 | Outpatient (CLI) | payer OTHER, MEDICAID, SELFPAY ==
--- NOTE | 2025-05-11 08:07 | MM_ITS ---
WS: [id number] BILATERAL SCREENING DIGITAL TOMOSYNTHESIS MAMMOGRAM WITH CAD HISTORY: SCREENING COMPARISON: 05/06/2024, 04/30/2023, 04/13/2022 Bilateral CC and MLO views with tomosynthesis and synthetic mammography submitted. Computer aided detection analyzed. Breast composition: There are scattered areas of fibroglandular density. No suspicious masses, microcalcifications or architectural distortion. Bilateral small breast calcifications. Prior biopsy clip in the central LEFT breast. No increase in size of the associated mass with the clip. MM/MM [facility] tomosynthesis [id number] IMPRESSION: BI-RADS: 2 - Benign. FOLLOW UP: 1 Year Follow-up
== END 2025-05-11 07:59 | disposition home or self-care (01) ==
PROVIDERS: PCP Family Medicine; Visit Provider Family Medicine
DX: Z12.31 Encounter for screening mammogram for malignant neoplasm of breast (principal); R92.323 Mammographic fibroglandular density, bilateral breasts; R92.1 Mammographic calcification found on diagnostic imaging of breast; Z96.89 Presence of other specified functional implants
CPT/HCPCS: 77063; 77067

== ENCOUNTER → 2025-07-31 09:47 | Outpatient (BNVA) | payer OTHER, SELFPAY | PROVIDERS: PCP Family Medicine; Visit Provider Nurse Practitioner Family | DX: L57.8 Other skin changes due to chronic exposure to nonionizing radiation (principal); L73.2 Hidradenitis suppurativa | CPT/HCPCS: 10060; 11900; 99213 ==

== ENCOUNTER 2025-08-09 09:20 | Emergency (ER) | payer MEDICARE, MEDICAID, SELFPAY ==
--- OUTSIDE RECORDS SUMMARY | 2024-07-12 03:00 | XMS_ITS ---
Author Organization [facility] Address [address] [id number] Care Team Providers Care Packaging Mechanic Name Role Phone Víctor Velázquez Primary Care Provider Unavailabl e Migration, Provider Unavailable Unavailable REASON FOR VISIT EMR-Miguel Encounters Encounter Location Date Provider Diagnosis Migrated_Facility 0 0 07/12/2024 Provider Migration Plan Of Treatment No Information Progress Notes * Maria Alejandra CUMMINGSDOB:1980 (45 yo F)Acc No.[id number]:07/12/2024 Patient: Maria Alejandra BENAVIDEZ :1980 A ge:43 Y S ex:Female Address:[address] [place] [address], [id number] Subjective: * Chief Complaints: * E MR-Miguel * * Date:
--- OUTSIDE RECORDS SUMMARY | 2024-07-13 03:00 | XMS_ITS ---
Author Organization [facility] Address [address] [phone] Care Team Providers Care Sas Clinical Programmer Name Role Phone Víctor Velázquez Primary Care Provider Unavailabl e Migration, Provider Unavailable Unavailable REASON FOR VISIT EMR-Miguel Encounters Encounter Location Date Provider Diagnosis Migrated_Facility 0 0 07/13/2024 Provider Migration Plan Of Treatment No Information Progress Notes * Maria Alejandra CUMMINGSDOB:1980 (45 yo F)Acc No.[id number]:07/13/2024 Patient: Maria Alejandra BENAVIDEZ :1980 A ge:43 Y S ex:Female Address:[address] [place] [address], [id number] Subjective: * Chief Complaints: * E MR-Miguel * * Date:
--- OUTSIDE RECORDS SUMMARY | 2025-08-09 09:25 | XMS_ITS | Data Portability ---
Author Organization [facility], Jasmine.Pauline, [facility] Address [address] [place] [phone] Assessment Encounter Date Assessment Date Assessment LastModified by Organization Details LastModified Time 06/23/2025 06/23/2025 Document scribed by Praveen Hoang, Garment Sewer [employer]. I was present during interview and exam. I have reviewed and agree with above documentation . Dr. El Goldberg. [email or web address] Not available 06/23/2025 12:41:10 Plan of Treatment Reminders Order Date Submit Date Provider Last Modified By Organization Details Last Modified Time Details Appointments None recorded. Lab urinalysis, complete 2023 024 [email or web address] [facility] ([facility]), [address] [place], [address], 4 14:37:59 culture, urine 2023 024 MELECIOPricePanda [facility], [address] [place] [address], [facility] [address] [place], [address], 21:19:56 Referral None recorded. Procedures None recorded. Surgeries None recorded. Imaging electrocard iogram 2022 023 [email or web address] [facility] ([facility]), [address] [place], [address], 15:53:31 Medication Orders prednisone 20 mg tablet 2024 025 [facility] [place], [address] [place], [address], 5 05:01:37 amoxicillin 875 mg-potcolemanu m clavulanate 125 mg tablet 2024 [facility], [address] [place] [address], [address], 5 05:01:55 doxycycline hyclate 100 mg capsule 2023 [facility], [address] [place] [address], [address], 5 13:37:19 prednisone 20 mg tablet 2023 [facility], [address] [place] [address], [address], 5 05:01:37 ProAir HFA 90 mcg/actuati on aerosol inhaler 2023 [facility], [address] [place] [address], [address], 4 17:06:13 azithromyci n 250 mg tablet 2023 [facility], [address] [place] [address], [address], 4 17:07:29 tizanidine 4 mg capsule 2023 024 [facility], [address] [place] [address], [address], 4 16:07:35 Zofran 4 mg tablet 2023 024 [email or web address] Not available 14:15:39 Patient TargetsNo targets recorded. Patient InstructionsNo instructions recorded. Reason for Referral None Reported. Results Created Date Observation Date Name Description Value Unit Range Abnormal Flag Note LastModifiedBy Organization Detail LastModifiedTime 11/21/1911/22/2023 CULTU RE, URINE , ROUTI NE culture, urine, routine SEE NOTE CULTU RE, URINE , ROUTI NE Micro Numbe r: [id number] Test Statu s: Final Speci men Sourc e: Urine , clean catch Speci men Quali ty: Adequ ate Resul t: No Growt h Not Available [facility] [address] [place], [address], 11/22/2023 21:19:56 11/21/1911/21/2023 urina lysis , compl ete color yellow Not Available [facility] ([facility]) [address] [place] [address], [address], 11/21/2023 13:30:24 11/21/19 24 11/21/2023 urina lysis , compl ete clarity clear clear Not Available [facility] ([facility]) [address] [place] [address], [address], 11/21/2023 13:30:24 11/21/19 24 11/21/2023 urina lysis , compl ete glucose negati ve negati ve Not Available [facility] ([facility]) [address] [place] [address], [address], 11/21/2023 13:30:24 11/21/19 24 11/21/2023 urina lysis , compl ete bilirubin negati ve negati ve Not Available [facility] ([facility]) [address] [place] [address], [address], 11/21/2023 13:30:24 11/21/19 24 11/21/2023 urina lysis , compl ete ketones negati ve negati ve Not Available [facility] ([facility]) [address] [place] [address], [address], 11/21/2023 13:30:24 11/21/19 24 11/21/2023 urina lysis , compl ete specific gravity 1.030 1.005- 1.025 Not Available [facility] ([facility]) [address] [place], [address], 11/21/2023 13:30:24 11/21/19 24 11/21/2023 urina lysis , compl ete pH 6.0 5.0-7. 0 Not Available [facility] ([facility]) [address] [place], [address], 11/21/2023 13:30:24 11/21/19 24 11/21/2023 urina lysis , compl ete protein negati ve Not Available [facility] ([facility]) [address] [place], [address], 11/21/2023 13:30:24 11/21/19 24 11/21/2023 urina lysis , compl ete uro 0.2 Not Available [facility] ([facility]) [address] [place], [address], 11/21/2023 13:30:24 11/21/19 24 11/21/2023 urina lysis , compl ete nitrate negati ve negati ve Not Available [facility] ([facility]) [address] [place], [address], 11/21/2023 13:30:24 11/21/19 24 11/21/2023 urina lysis , compl ete blood negati ve negati ve Not Available [facility] ([facility]) [address] [place], [address], 11/21/2023 13:30:24 11/21/19 24 11/21/2023 urina lysis , compl ete leukocytes negati ve negati ve Not Available [facility] ([facility]) [address] [place], [address], 11/21/2023 13:30:24 11/21/19 24 11/21/2023 urina lysis , compl ete WBC 3-4 0 Not Available [facility] ([facility]) [address] [place], [address], 11/21/2023 13:30:24 11/21/19 24 11/21/2023 urina lysis , compl ete RBC 1-2 0 Not Available [facility] ([facility]) [address] [place], [address], 11/21/2023 13:30:24 11/21/19 24 11/21/2023 urina lysis , compl ete epi cells 4-5 0 Not Available [facility] ([facility]) [address] [place], [address], 11/21/2023 13:30:24 11/21/19 24 11/21/2023 urina lysis , compl ete bacteria - Not Available [facility] ([facility]) [address] [place], [address], 11/21/2023 13:30:24 11/21/19 24 11/21/2023 urina lysis , compl ete other 1+ mucus Not Available [facility] ([facility]) [address] [place], [address], 11/21/2023 13:30:24 07/16/20 23 07/16/2023 elect yosvany [email or web address] am No observ ation record ed. [email or web address] [facility] ([facility]) [address] [place], [address], 07/16/2023 17:40:28 Result Notes None recorded. Problems Name Problem SNOMED Code Status Onset Date Resolution Date Notes Provider Name and Address Organization Details Recorded Time Kidney stone 12474341 Active 018 kidney stones; 09/25/19 18 12:26PM by Mandi Adan LPN, Office Visit; Promoted ; acuity set as *; Not Available [facility] 3 03:07:20 Asthma 839378496 Active 018 asthma; 09/25/19 18 12:26PM by Mandi Adan LPN, Office Visit; Promoted ; acuity set as *; Not Available [facility] 3 03:07:21 Problem Notes None recorded. Procedures Surgical History Date Name Laterality Status Provider Name and Address Organization Details Recorded Time section completed [facility] 08/15/2024 16:40:15 Hysterectomy completed [facility] 08/15/2024 16:40:21 Gallbladder Surgery completed [facility] 08/15/2024 16:40:31 Breast reduction completed [facility] 08/15/2024 16:40:38 Cricopharyngeal myotomy completed [facility] 08/15/2024 16:41:00 Imaging Results None recorded. Procedure Notes None recorded. Medical Equipment None Reported. Allergies Allergen ID Allergen Name Allergen Category Reaction Reaction Severity Criticality Documentation Date Start Date Code Code System Note Provider Name and Address Organization Details Recorded Time 47977 Keflex medicatio n Not available Not available Not available 04/14/2023 51388 7 RxNorm Jackie Funez [facility] 4 13:19:04 02488 Substance with sulfonami de structure and antibacte rial mechanism of action (substanc e) medicatio n anaphylax is severe high 04/14/2023 79728 8003 SNOMED [facility] 5 12:20:36 61019 erythromy allie medicatio n Not available Not available Not available 04/14/2023 4053 RxNorm Jackiedeepak Funez [facility] 4 13:19:09 18573 Product containin g penicilli n (product) medicatio n Not available Not available Not available 04/14/2023 89381 [facility]001 [facility] Funez [facility] 4 13:19:18 13993 morphine sulfate medicatio n anaphylax is severe high 04/14/2023 91659 RxNorm Jackie Funez [facility] 4 13:17:13 37670 Cephalosp dariusz (substanc e) medicatio n hives mild low 11/21/2023 55880 7003 SNOMED Elinor Shah [facility] 5 12:20:47 57967 Quinazoli ne (substanc e) medicatio n hives mild low 11/21/2023 27609 0002 [facility] Francisca Velazquezoggins [facility] 4 16:46:53 38208 salicylat e medicatio n hives mild low 11/21/2023 9522 RxNorm Francisca Núñezs [facility] 4 16:46:55 70599 clindamyc in Not available Not available Not available Not available 06/23/2025 2582 RxNorm Elinor Shah [facility] 5 12:20:57 Medications Name Sig Start Date Stop Date [...] day by oral route for 7 days. 06/23 completed Not Available Not Available Not Available Pain Reliever (acetamin ophen) 325 mg tablet [...] ibuprofen 800 mg tablet q 8 prn 06/23 completed 0; Recorded 09/25/19 18 12:23PM by Mandi [...] 2 tablets every day by oral route in the morning for 7 days. 07/07 completed Not Available Not Available Not Available [...] Available Not Available Not Available amoxicill in 875 mg-potass ium clavulana te 125 mg tablet Take 1 tablet twice a day by oral route for 10 days. 07/10 completed Not Available Not Available Not Available [...] weight Body temperature Respiratory rate Oxygen saturation Heart rate Systolic And Diastolic Provider Name and Address Organization Details Last Updated DateTime 162.56 cm 45.5 kg/m2 776965. 7 g 96.9 [degF] 19 /min 99 % 68 /min 130/88 mm[Hg] Jackie Funez [facility] 4 13:29:30 Date Recorded Body height Body mass index (BMI) Body weight Oxygen saturation Heart rate Respiratory rate Body temperature Systolic And Diastolic Provider Name and Address Organization Details Last Updated DateTime 5 162.56 cm 34.5 kg/m2 64364.0 7 g 96 % 86 /min 16 /min 98.2 [degF] 144/74 mm[Hg] Elinor Shah [facility] 5 12:22:00 Date Recorded Body height Body mass index (BMI) Body weight Oxygen saturation Heart rate Respiratory rate Body temperature Systolic And Diastolic Provider Name and Address Organization Details Last Updated DateTime 4 162.56 cm 41.4 kg/m2 952781. 76 g 97 % 88 /min 16 /min 99.4 [degF] 138/90 mm[Hg] Elinor Shah [facility] 4 16:38:43 Date Recorded Body height Body mass index (BMI) Body weight Body temperature Heart rate Oxygen saturation Systolic And Diastolic Provider Name and Address Organization Details Last Updated DateTime 4 162.56 cm 41.2 kg/m2 240670. 17 g 97.9 [degF] 75 /min 97 % 136/82 mm[Hg] hSruthi Lyon [facility] 4 16:47:30 Social History Question Answer Notes LastModified by Organizat ion Details LastModified Time Tobacco Smoking Status Current Every Day Smoker Elinor Shah [facility] 08/15/2024 16:40:05 What Was The Date Of Your Most Recent Tobacco Screening? 06/23/2025 [email or web address] Information not available 06/23/2025 Sex: Unknown Functional Status None recorded. Mental Status None recorded. Family History Nothing Reported. Medical History No medical history recorded. Gynecological HistoryNo gynecological history recorded. Obstetrics History GPAL:G 0 P 0 0 0 0 Immunizations Vaccine Type Date Status Note Provider Nam e and Address Organization Details Recorded Time tetanus toxoid, adsorbed 5 completed Not Available [facility] 06/23/2025 12:17:17 Td (adult), 2 Lf tetanus toxoid, preservative free, adsorbed 0 completed Not Available [facility] 06/23/2025 12:17:17 Tdap 2 completed Not Available [facility] 06/23/2025 12:17:17 Hep B, adult 3 completed Not Available [facility] 06/23/2025 12:17:17 Hep B, adult 3 completed Not Available [facility] 06/23/2025 12:17:17 Hep B, adult 3 completed Not Available [facility] 06/23/2025 12:17:17 Pneumococcal conjugate PCV20, polysaccharide NNG397 conjugate, adjuvant, PF 3 completed Not Available [facility] 06/23/2025 12:17:17 Past Encounters Encounter ID Performer Location Encounter Start Date Encounter Closed Date Diagnosis/Indication Diagnosis SNOMED-CT Code Diagnosis ICD10 Code Diagnosis IMO Codes Diagnosis Note [id number] Parag King MD [facility] ([facility]) [address] [place] [address] 07/16/2023 11:49:39 07/23/2023 14:57:58 Preprocedural examination done 9439053905 75241 Z01.850 [id number] RAMBO LOCK [facility] ([facility]) [address] [place] [address] 11/21/2023 12:49:49 11/21/2023 15:17:04 Acute low back pain 289884027 M54.50 Neg urine today. Discussed use of heating pad, slow stretches, and muscle relaxer. Return if you develp worsening pain, fever, new symptoms or concerns. Nausea 682636403 R11.0 [id number] RAMBO LOCK [facility] ([facility]) [address] [place] [address] 08/15/2024 16:32:30 08/15/2024 16:57:51 Acute bacterial bronchitis 729363086 J20.9 Discussed use of otc medication s for symptom management .Push oral fluids and rest.If you develop fever, sob, or start feeling worse then return for re-evaluat ion. [id number] RAMBO LOCK [facility] ([facility]) [address] [place] [address] 09/08/2024 16:21:14 09/08/2024 17:11:34 Cellulitis of breast 84038090 N61.0 Discussed use of warm compress, antibiotic , and tylenol/mo maynor for discomfort . if you develop fever or worsening signs of infection then return for re-evaluat ion [id number] El Goldberg DO [facility] ([facility]) [address] [place] [address] 06/23/2025 12:13:23 06/23/2025 12:47:37 Acute bronchitis 89223752 J20.9 [id number] Augmentin, Prednisone , counseled. Health Concerns Section Related Observation LastModified by Organization Detai ls LastModified Time None Recorded Concern Status LastModified by Organization Details LastModified Time None Recorded Advance Directives Directive None Recorded Payers Insurance Date Sequence Insurance Name Policy Number Policy Silvestre Covered Member ID Silvestre Member ID Guarantor Name 07/14/2025 2 [place] Maria Alejandra Valenzuela [id number] Maria Alejandra Valenzuela 06/23/2025 1 [facility] [place]PLAC[place]/ADVA NTAGE - PPO) Maria Alejandra Cummings [id number] Maria Alejandra Valenzuela 07/14/2025 [place] [facility] (INSTITUTIONAL) Maria Alejandra Cummings [id number] Maria Alejandra Valenzuela 07/14/2025 1 [facility] - DUAL ELIGIBLE (MEDICARE REPLACEMENT/ADVA NTAGE - HMO) [employer] Maria Alejandra Valenzuela [id number] Maria Alejandra Valenzuela 06/23/2025 1 [facility] INSURANCE - MEDICARE - PART A - INSTITUTIONAL - NATIONAL - [facility] [place] (MEDICARE) Maria Alejandra Cummings [id number] Maria Alejandra Valenzuela Notes Date Note Type Note Provider Name [...] as noted in the HPI [facility] [address] [place], [address], [facility] 11/21/2023 15:01:56 08/15/2024 text/html CoughReported by PatientROS as noted in the HPI walk in patientpatient is here today for cough, and wheezing that started 08/03/24, patient said that she has been getting worse. Has been taking coracidin and tessalon. Has been on augmentin for an infection in her nose. [facility] [address] [place], [address], [facility] 08/15/2024 16:55:04 09/08/2024 text/html ROS as noted in the HPI walk in ptPt presents with redness and tenderness to her left breast that started yesterday. states this occurs frequently and she is followed by a transfer worker. When the infection starts doxy is used to treat the infection. denies fever or nipple discharge. [address] [place], [address], [facility], [place]. 09/09/2024 18:56:22 06/23/2025 text/html CoughReported by Patient walk in patientpatient is here today for cough, congestion, drainage, onset 6 days ago.She has had chills today. Smoker.Pmhx Asthma.Using Proair inhaler. Also taking Humira. Finished a round of Doxy in May. El Goldberg, DO [address] [place], [address], [facility], [place]. 06/25/2025 08:29:05 OBGyn Episode No OBEpisode recorded.
--- OUTSIDE RECORDS SUMMARY | 2025-08-09 09:25 | XMS_ITS | Continuity of Care Document ---
Author Organization [place] [facility] [employer] [facility] ([facility]) Address [address] [place] [address] Assessment Encounter Date Assessment Date Assessment LastModified by Organization Details LastModified Time 06/23/2025 06/23/2025 Document scribed by Praveen Hoang Cat Dog Or Other Pet Groomer. I was present during interview and exam. I have reviewed and agree with above documentation . Dr. El Goldberg. [email or web address] Not available 06/23/2025 12:41:10 Plan of Treatment Reminders Order Date Submit Date Provider Last Modified By Organization Details Last Modified Time Details Appointments None recorded. Lab None recorded. Referral None recorded. Procedures None recorded. Surgeries None recorded. Imaging None recorded. Medication Orders prednisone 20 mg tablet 2024 025 [facility] [address], [address], 5 05:01:37 amoxicillin 875 mg-potassiu m clavulanate 125 mg tablet 2024 025 [facility] [place], [address] [place] [address], [address], 5 05:01:55 Patient TargetsNo targets recorded. Patient InstructionsNo instructions recorded. Reason for Referral None Reported. Problems Name Problem SNOMED Code Status Onset Date Resolution Date Notes Provider Name and Address Organization Details Recorded Time Kidney stone 70714724 Active 018 kidney stones; 09/25/19 18 12:26PM by Mandi Adan LPN, Office Visit; Promoted ; acuity set as *; Not Available [facility] 3 03:07:20 Asthma 504707128 Active 018 asthma; 09/25/19 18 12:26PM by Mandi Adan LPN, Office Visit; Promoted ; acuity set as *; Not Available [facility] 3 03:07:21 Problem Notes None recorded. Procedures Surgical History Date Name Laterality Status Provider Name and Address Organization Details Recorded Time section completed [facility] 08/15/2024 16:40:15 Hysterectomy completed [facility] 08/15/2024 16:40:[address] [facility] 08/15/2024 16:40:31 Breast reduction completed [facility] 08/15/2024 16:40:38 Cricopharyngeal myotomy completed [facility] 08/15/2024 16:41:00 Imaging Results None recorded. Procedure Notes None recorded. Medical Equipment None Reported. Allergies Allergen ID Allergen Name Allergen Category Reaction Reaction Severity Criticality Documentation Date Start Date Code Code System Note Provider Name and Address Organization Details Recorded Time 48635 Keflex medicatio n Not available Not available Not available 04/14/2023 59785 7 RxNorm [facility] 4 13:19:04 52539 Substance with sulfonami de structure and antibacte rial mechanism of action (substanc e) medicatio n anaphylax is severe high 04/14/2023 73982 8003 SNOMED [facility] 5 12:20:36 27423 erythromy allie medicatio n Not available Not available Not available 04/14/2023 4053 RxNorm [facility] 4 13:19:09 44735 Product containin g penicilli n (product) medicatio n Not available Not available Not available 04/14/2023 40346 8001 SNOMED Jackie Funez [facility] 4 13:19:18 28044 morphine sulfate medicatio n anaphylax is severe high 04/14/2023 47477 RxNorm Jackie Funez [facility] 4 13:17:13 46391 Cephalosp dariusz (substanc e) medicatio n hives mild low 11/21/2023 91951 7003 SNOMED Elinor Shha [facility] 5 12:20:47 18111 Quinazoli ne (substanc e) medicatio n hives mild low 11/21/2023 64560 0002 SNOMED Shmarianna Christina [facility] 4 16:46:53 92725 salicylat e medicatio n hives mild low 11/21/2023 9522 RxNorm Amberna Christina [facility] 4 16:46:55 98447 clindamyc in Not available Not available Not available Not available 06/23/2025 2582 RxNorm Elinor Shah [facility] 5 12:20:57 Medications Name Sig Start [...] Organization Details Last Updated DateTime 162.56 cm 34.5 kg/m2 98777.0 7 g 96 % 86 /min 16 /min 98.2 [degF] 144/74 mm[Hg] [facility] 12:22:00 Social History Question Answer Notes LastModified by Organizat ion Details LastModified Time Tobacco Smoking Status Current Every Day Smoker Elinor Shah dony [facility] 08/15/2024 16:40:05 What Was The Date [...] tetanus toxoid, adsorbed 5 completed Not Available [facility] 06/23/2025 12:17:17 Td (adult), 2 Lf tetanus toxoid, preservative free, adsorbed 0 completed Not Available [facility] 06/23/2025 12:17:17 Tdap 2 completed Not Available [facility] 06/23/2025 12:17:17 Hep B, adult 3 completed Not Available [facility] 06/23/2025 12:17:17 Hep B, adult 3 completed Not Available [facility] 06/23/2025 12:17:17 Hep B, adult 3 completed Not Available [facility] 06/23/2025 12:17:17 Pneumococcal conjugate PCV20, polysaccharide TIK994 conjugate, adjuvant, PF 3 completed Not Available [facility] 06/23/2025 12:17:17 Past Encounters Encounter ID Performer Location Encounter Start Date Encounter Closed Date Diagnosis/Indication Diagnosis SNOMED-CT Code Diagnosis ICD10 Code Diagnosis IMO Codes Diagnosis Note [id number] El Goldberg DO [employer] [facility] [employer] [facility] ([facility]) [address] [place] [phone] 06/23/2025 12:13:23 06/23/2025 12:47:37 Acute bronchitis 93304797 J20.9 [id number] Augmentin, Prednisone , counseled. Health Concerns Section Related Observation LastModified by Organization Detai ls LastModified Time None Recorded Concern Status LastModified by Organization Details LastModified Time None Recorded Payers Encounter Date Sequence Insurance Name Policy Number Policy Silvestre Covered Member ID Silvestre Member ID Guarantor Name 06/23/2025 2 [place] Maria Alejandra Sherlyn Valenzuela [id number] Maria Alejandra Valenzuela 06/23/2025 1 [employer] - MEDICARE - PART A - INSTITUTIONAL - [facility] [place] (MEDICARE) Maria Alejandra Sherlyn Cummings [id number] Maria Alejandra Valenzuela Notes Date Note Type Note Provider Name and Address Organization Details Recorded Time 06/23/2025 text/html CoughReported by Patient walk in patientpatient is here today for cough, congestion, drainage, onset 6 days ago.She has had chills today. Smoker.Pmhx Asthma.Using Proair inhaler. Also taking Humira. Finished a round of Doxy in May. El Goldberg, DO [address] [place] [address], [phone], [facility], LDylan 06/25/2025 08:29:05 OBGyn Episode No OBEpisode recorded.
--- OUTSIDE RECORDS SUMMARY | 2025-08-09 09:25 | XMS_ITS | Patient Health Record ---
Author Organization [facility] Address [address] [place] [address] Care Team Providers Care Director Corporate Name Role Phone Víctor Velázquez Primary Care Provider Unavailabl e Reason For Referral No Information Plan Of Treatment No Information
[2025-08-09 09:28] VITALS: BP 132/85; PULSE 93; RESP 16; TEMP 36.7; O2SAT 97; BMI 34.3
[2025-08-09 09:40] LABS: Hematocrit 49.9 % (36-47); Hemoglobin 17.00 g/dL (11.27-16.99); Mean Corpuscular HGB Conc 34.1 g/dL (30-55); Mean Corpuscular Hemoglobin 31.7 pg (27-33); Mean Corpuscular Volume 93.1 fl (85-98); Nucleated Red Blood Cells % 0 %; Platelet Count 374 10^3/cmm (157-399); Red Blood Count 5.36 10^6/uL (3.85-5.65); White Blood Count 17.29 10^3/uL (3.29-11.43)
--- NOTE | 2025-08-09 09:44 | ED_ITS ---
HPI - Nausea/Vomiting/Diarrhea 2 General: Chief complaint: Nausea/Vomiting/Diarrhea Stated complaint: NVD Time Seen by Provider: 08/09/25 09:25 Source: patient Mode of arrival: ambulatory Limitations: no limitations History of Present Illness: Patient is a 55-year-old female with past medical history of leukocytosis who presents to the emergency department complaining of nausea vomiting diarrhea that began suddenly at 1400 yesterday. She notes to me episodes account of explosive diarrhea as well as projectile vomiting. No blood in her diarrhea or vomit. No fevers but she does feel like she is having chills. No sick contacts reported. She does have some cramping diffuse abdominal pain associated with. Does note that a couple weeks ago she finished a course of Augmentin. 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 No urinary symptoms, no back pain. No chest pain or shortness of breath. Hemodynamically stable at this time, rest of her vitals normal. MD elicited complaint: nausea, vomiting, diarrhea and abdominal pain Onset (ago): day(s) Associated nausea: Yes Associated abdominal pain: Yes Location of pain: Diffuse Quality: cramping Associated symtoms: Reports fatigue, malaise and nausea; Denies chest pain, diaphoresis, dizziness, dysuria, headache(s) or palpitations Related Data Home Medications ?Medication ?Instructions ?Recorded ?Confirmed albuterol sulfate 90 mcg/actuation 2 puff inhalation Q 6H PRN 07/05/20 08/09/25 aerosol inhaler (Ventolin HFA) Shortness Of Breath diphenhydramine HCl 25 mg capsule 25 mg PO TID PRN Itc christopher 08/30/20 08/09/25 (Benadryl) allopurinol 100 mg tablet 100 mg PO BID 06/29/2108/09 MARIJUANA 09/26/22 08/09/25 acyclovir 200 mg capsule 200 mg PO TID 06/26/2408/09 atorvastatin 20 mg tablet 20 mg PO QPM 08/09/25 ibuprofen 200 mg tablet (Advil) 800 mg PO Q6H PRN Feve r Or Pain 08/09/25 08/09/25 metoprolol tartrate 25 mg tablet 25 mg PO BID 08/09/25 08/09/25 secukinumab 150 mg/mL subcutaneous See Rx Instructions .Route .COMPLEX 08/09/25 08/09/25 pen injector (Cosentyx Pen 300 mg/2 pens () tirzepatide 10 mg/0.5 mL 10 mg SUBCUT Q7D 08/09/25 subcutaneous pen injector (Elian) Previous Rx's ?Medication ?Instructions ?Recorded Sole Supports #1 ea 01/22/20 ondansetron 4 mg disintegrating 4 mg PO Q6H PRN nausea and 04/11/25 tablet vomiting #14 tabs diazepam 10 mg tablet 10 mg PO DAILY PRN anxiety # 30 tabs 06/05/25 dicyclomine 10 mg capsule 10 mg PO QID PRN abdominal p ain 08/09/25 #20 caps metoclopramide HCl 10 mg tablet 10 mg PO Q6H PRN nause a and 08/09/25 vomiting #14 tabs Allergies Allergy/AdvReac Type Severity Reaction Status Date / Time Cephalosporins Allergy Mild ALGY-Hives Verified 06/05/25 09:52 clindamycin Allergy ALGY-Hives Verified 06/05/25 09:52 morphine Allergy ALGY-Anaphy Verified 06/05/25 09:52 laxis Quinolones Allergy ALGY-Hives Verified 06/05/25 09:52 salicylates Allergy ALGY-Hives Verified 06/05/25 09:52 Sulfa (Sulfonamide Allergy ALGY-Anaphy Verified 06/05/25 09:52 Antibiotics) laxis Review of Systems 2 General: Reports: 10 or more systems reviewed and unremarkable except in HPI and below Const: Reports: chills, fatigue and malaise; Denies: fever(s), change in appetite, change in weight or diaphoresis ENMT: Denies: throat pain or hoarseness Card: Denies: chest pain, palpitations or lightheadedness Resp: Denies: dyspnea, productive cough or wheezing GI: Reports: abdominal pain, nausea, vomiting, diarrhea and GI cramping : Denies: flank pain, difficulty voiding, dysuria, urinary frequency or urinary urgency Musc: Denies: neck pain or back pain Skin/Breast: Denies: rash or new lesions Neuro: Reports: weakness in extremities; Denies: headache(s) or dizziness PFSH ED 2 PFSH: Medical History Leukocytosis Pelvic pain Menorrhagia Psychiatric care Urolithiasis Recurrent UTI Nicotine dependence, cigarettes, with unspecified nicotine-induced disorders Enrolled in chronic care management Major depression, recurrent, full remission Obsessive compulsive disorder Surgical History History of vaginal hysterectomy (~04/04/23) performed for AUB and pelvic pain-- Albino OZH; AMRILIA 1 on cervix; o/w Neg pathology H/O left breast biopsy H/O laparoscopy (~04/06/22) Diagnostic laparoscopy Albino. Lysis of adhesions. Right ovarian cystectomy. Hysteroscopy with dilation and curettage via MyoSure H/O section x2 H/O lithotripsy S/P cholecystectomy S/P tubal ligation Family History Mother Hyperlipidemia Hypertension Grandmother Stroke maternal Denies family history of Colon cancer Ovarian cancer Diabetes Clotting disorder Heart disease Breast cancer Anesthesia complication Bleeding disorder Uterine cancer Thyroid disease Social History Smoking and tobacco/nicotine status: current every day tobacco/nicotine user Female Reproductive History: Para: 2 Physical Exam 2 Const: COMMON NORMALS: no acute distress, average body habitus, patient oriented x3, no limitations, healthy appearing, alert and well nourished G ENERAL APPEARANCE: cooperative and comfortable ORIENTATION/CONSCIOUSNESS: Yes awake Neck/C-Spine: COMMON NORMALS: full ROM, supple and no meningeal signs Resp: COMMON NORMALS: normal respiratory effort, No retractions, No use of accessory muscles and clear to auscultation bilaterally AUSCULTATION: clear to auscultation bilaterally, no crackles, no rales, no rhonchi and no wheezes Cardio: COMMON NORMALS: regular rate, regular rhythm, No gallops present (Cardio), No clicks present (Cardio), No murmurs present (Cardio) and No rub (Cardio) RATE: regular rate RHYTHM: regular rhythm GI: COMMON NORMALS: Normal to inspection, nondistended, normoactive bowel sounds present, Soft to palpation, No hepatosplenomegaly present and no masses AUSCULTATION: Yes normoactive bowel sounds PALPATION: Yes Soft to palpation, Yes Tenderness to palpation present (GI) (Diffuse cramping), No Guarding due to palpation present (GI), No Rigid due to palpation and Yes No hepatosplenomegaly present RECTAL EXAM: deferred Extremity: COMMON NORMALS: normal to inspection and full ROM Neuro: COMMON NORMALS: patient oriented x3, moves all extremities, no focal motor deficits and no sensory deficits noted SENSORIUM/ORIENTATION: Yes alert MENINGEAL SIGNS: Yes no meningeal signs Skin: COMMON NORMALS: no rashes or lesions noted GENERAL SKIN EXAM: no rashes or lesions noted Course 2 Vital Signs: Vital signs: Vital Signs Temperature 98.1 F 08/09/25 09:28 Pulse Rate 93 08/09/25 09:28 Respiratory Rate 16 08/09/25 09:28 Blood Pressure 132/85 08/09/25 09:28 Pulse Oximetry 97 08/09/25 09:28 Oxygen Delivery Me thod Room Air 08/09/25 09:28 MDM - Nausea/Vomiting/Diarrhea Medical Decision Making Patient presenting with profuse vomiting and diarrhea that began yesterday. Hemodynamically stable and nontoxic-appearing at time of examination, somewhat tired however. No significant signs of dehydration. She chronically has leukocytosis, white count today is 17 which is slightly elevated from normal but not significant in this clinical picture. Slight decrease in potassium, she is given potassium orally, this is likely result of her vomiting and diarrhea. Also could explain her weakness. She is also started on IV fluids. Nausea medications administered here in the emergency department as well. C. difficile negative, viral panel showing positive adenovirus. This likely is causing viral gastroenteritis and patient does note improvement after IV rehydration as well as nausea medications. She is stable for discharge home with her feeling better and vitals remaining normal. Will send Mickey and Cheryl to pharmacy, and is told to return if she has persistence of vomiting diarrhea or general worsening of condition. Patient agrees with this discharge plan at this time. Lab Data 08/09/25 08:29 08/09/25 08:29 Laboratory Results WBC 17.29 10^3/uL (3.29-11.43) H 08/09/25 08:29 RBC 5.36 10^6/uL (3.85-5.65) 08/09/25 08:29 Hgb 17.00 g/dL (11.27-16.99) H 08/09/25 08: Hct 49.9 % (36-47) H 08/09/25 08: MCV 93.1 fl (85-98) 08/09/25 08: MCH 31.7 pg (27-33) 08/09/25 08: MCHC 34.1 g/dL (30-55) 08/09/25 08: RDW 12.8 % (12.1-15.1) 08/09/25 08: Plt Count 374 10^3/cmm (157-399) 08/09/25 08: MPV 9.6 fL (7.4-10.4) 08/09/25 08: Neut % (Auto) 67.7 % 08/09/25 08: Lymph % (Auto) 23.9 % 08/09/25 08: [place] % (Auto) 6.8 % 08/09/25 08: Eos % (Auto) 1.0 % 08/09/25 08: Baso % (Auto) 0.4 % 08/09/25 08:29 Neut # (Auto) 11.70 10^3/uL (1.8-7.7) H 08/09/25 08: Lymph # (Auto) 4.1 10^3/uL (0.8-4.8) 08/09/25 08:29 [place] # (Auto) 1.2 10^3/uL (0.2-0.9) H 08/09/25 08: Eos # (Auto) 0.2 10^3/uL (0.0-0.8) 08/09/25 08: Baso # (Auto) 0.1 10^3/uL (0.0-0.1) 08/09/25 08: Nucleated RBC % (auto) 0 % 08/09/25 08: Nucleated RBCs # 0.0 /100WBC 08/09/25 08:29 Sodium 135 mmol/L (136-145) L 08/09/25 08:29 Potassium 3.1 mmol/L (3.5-5.1) L 08/09/25 08: Chloride 102 mmol/L (98-107) 08/09/25 08:29 Carbon Dioxide 18 mmol/L (22-29) L 08/09/25 08:29 Anion Gap 18.1 (5-19) 08/09/25 08:29 BUN 16 mg/dL (6-20) 08/09/25 08: Creatinine 0.8 mg/dL (0.5-0.9) 08/09/25 08: GFR Calculation 77.6 mL/min (90-130) L 08/09/25 08: Glucose 127 mg/dL (65-115) H 08/09/25 08:29 Calculated Osmolality 283 mOsm/kg (285-295) L 08/09/25 08: Lactic Acid 1.5 mmol/L (0.5-2.2) 08/09/25 08: Calcium 9.5 mg/dL (8.5-10.5) 08/09/25 08: Total Bilirubin 0.6 mg/dL (0.15-1.2) 08/09/25 08: AST 13 U/L (0-32) 08/09/25 08: ALT 15 U/L (0-33) 08/09/25 08:29 Alkaline Phosphatase 126 U/L (35-105) H 08/09/25 08:29 C-Reactive Protein 3.0 mg/L (0.0-4.9) 08/09/25 08: Total Protein 7.4 g/dL (6.6-8.7) 08/09/25 08: Albumin 4.5 g/dL (3.5-5.2) 08/09/25 08: Globulin 2.9 g/dL (1.3-4.6) 08/09/25 08: Lipase 27 U/L (13-60) 08/09/25 08:29 Urine Color Dark yellow (Yellow) A 08/09/25 10:59 Urine Appearance Turbid (CLEAR) A 08/09/25 10:59 Urine pH 6.0 (5-7) 08/09/25 10:59 Ur Specific [place] 1.026 (1.005-1.030) 08/09/25 10:59 Urine Protein 2+ (Negative) A 08/09/25 10:59 Urine Glucose (UA) Negative (Normal) 08/09/25 10:59 Urine Ketones Trace (Negative) 08/09/25 10:59 Urine Blood Negative (Negative) 08/09/25 10:59 Urine Nitrate Negative (Negative) 08/09/25 10:59 Urine Bilirubin Negative (Negative) 08/09/25 10:59 Urine Urobilinogen 1.0 mg/dL (Negative) 08/09/25 10:59 Ur Leukocyte Esterase Trace (Negative) A 08/09/25 10:59 Urine RBC 3-5 /hpf (0-2) 08/09/25 10:59 Urine WBC 11-20 /hpf (0-5) H 08/09/25 10:59 Ur Squamous Epith Cells >100 /hpf (0-5) H 08/09/25 10:59 Amorphous Sediment Not Reportable 08/09/25 10:59 Urine Bacteria 4+ /hpf (NONE) H 08/09/25 10:59 Hyaline Casts 72.81 /lpf 08/09/25 10:59 Urine Opiates Screen Negative ng/mL (Negative) 08/09/25 10:59 Ur Barbiturates Screen Negative ng/mL (Negative) 08/09/25 10:59 Ur Phencyclidine Scrn Negative ng/mL (Negative) 08/09/25 10:59 Ur Amphetamines Screen Negative ng/mL (Negative) 08/09/25 10:59 U Benzodiazepines Scrn Positive ng/mL (Negative) H 08/09/25 10:59 Urine Cocaine Screen Negative ng/mL (Negative) 08/09/25 10:59 U Marijuana (THC) Screen Negative ng/mL (Negative) 08/09/25 10:59 C. difficile (PCR) Negative (Negative) 08/09/25 10:59 No radiology studies performed this visit Discharge Plan Discharge Patient Disposition: Home Clinical Impression: Viral gastroenteritis Condition: Stable Prescriptions: New dicyclomine 10 mg capsule 10 mg PO QID PRN (Reason: abdominal pain) Qty: 20 0RF metoclopramide HCl 10 mg tablet 10 mg PO Q6H PRN (Reason: nausea and vomiting) Qty: 14 0RF No Action (DME) Sole Supports Qty: 1 0RF Rx Instructions: As directed albuterol sulfate [Ventolin HFA] 90 mcg/actuation HFA aerosol inhaler 2 puff INHALATION Q6H PRN (Reason: Shortness Of Breath) diphenhydramine HCl [Benadryl] 25 mg capsule 25 mg PO TID PRN (Reason: Itching) allopurinol 100 mg tablet 100 mg PO BID (DME) MARIJUANA 0 .Route .MEDSUPPLY acyclovir 200 mg capsule 200 mg PO TID diazepam 10 mg tablet 10 mg PO DAILY PRN (Reason: anxiety) Qty: 30 5RF ondansetron 4 mg tablet,disintegrating 4 mg PO Q6H PRN (Reason: nausea and vomiting) Qty: 14 0RF atorvastatin 20 mg tablet 20 mg PO QPM ibuprofen [Advil] 200 mg Tablet 800 mg PO Q6H PRN (Reason: Fever Or Pain) metoprolol tartrate 25 mg tablet 25 mg PO BID Cosentyx Pen (2 Pens) 150 mg/mL pen injector See Rx Instructions .ROUTE .COMPLEX Rx Instructions: INJECT 300MG DIVIDED INTO TWO INJECTION SITES SUBCUTANEOUSLY ONCE A MONTH DIRECTED Mounjaro 10 mg/0.5 mL pen injector 10 mg SUBCUT Q7D Discharge Orders: Discharge ED (Routine); Ordered 08/09/25 Ordered By: Felipe Grullon Referrals: Isabel Sainz DO [Primary Care Provider, BODY TRIMMER] Patient Instructions: Patient Portal & Amber Instructions Activity Restrictions/Additional Instructions: Viral Gastroenteritis Discharge You have been diagnosed with viral gastroenteritis (a stomach virus), which causes symptoms like diarrhea, nausea, vomiting, and stomach cramps. Most people recover fully within a few days with rest and proper care. What to Do at Home: - Hydration is most important. Drink clear fluids such as water, oral rehydration solutions (like Pedialyte), clear broths, or diluted juices. Take small sips if you feel nauseated. Avoid alcohol and caffeine, which can worsen dehydration. - Eat as tolerated. Start with bland foods (bananas, rice, applesauce, toast) when you feel ready. There is no need to avoid food completely if you are hungry. - Rest. Your body needs time to recover. Medications: - Dicyclomine (Bentyl): Take as prescribed to help with stomach cramps. Only use as directed. - Metoclopramide (Reglan): Take as prescribed for nausea. If you experience side effects such as drowsiness, restlessness, or unusual movements, stop the medication and contact your doctor. - These medications help with symptoms but do not cure the infection. Continue to focus on staying hydrated. When to Seek Medical Attention: Return to the emergency department or contact your doctor if you experience: - Signs of dehydration (dry mouth, little or no urination, dizziness, rapid heartbeat) - Blood in your stool or vomit - High fever (over 102?F) - Severe or worsening abdominal pain - Persistent vomiting and inability to keep fluids down - New or worsening symptoms Prevention: - Wash your hands frequently, especially after using the bathroom and before eating. - Avoid preparing food for others until you have been symptom-free for at least 48 hours. Most cases of viral gastroenteritis resolve on their own. If you have any concerns or your symptoms worsen, seek medical care promptly. Print Language: Wallisian Coding Level of Care Code ED Therapeutic Mentor for Urvashi Jean
[2025-08-09 09:57] LABS: Alanine Aminotransferase 15 U/L (0-33); Albumin Level 4.5 g/dL (3.5-5.2); Alkaline Phosphatase 126 U/L (35-105); Anion Gap 18.1 (5-19); Aspartate Amino Transferase 13 U/L (0-32); Blood Urea Nitrogen 16 mg/dL (6-20); Calcium 9.5 mg/dL (8.5-10.5); Carbon Dioxide 18 mmol/L (22-29); Chloride 102 mmol/L (98-107); Globulin 2.9 g/dL (1.3-4.6); Glucose 127 mg/dL (65-115); Lipase 27 U/L (13-60); Osmolality Calculated 283 mOsm/kg (285-295); Potassium 3.1 mmol/L (3.5-5.1); Sodium 135 mmol/L (136-145); Total Protein 7.4 g/dL (6.6-8.7)
[2025-08-09 09:58] LABS: Lactic Sepsis W/Reflex 1.5 mmol/L (0.5-2.2)
[2025-08-09] MEDS: metoclopramide 5 mg/mL SDV 2 mL 10 MG IVP (10:29)
--- NOTE | 2025-08-09 10:35 | PC.NURSE ---
ATTEMPTED UA @ 1030. PATIENT STATES CANNOT GO.
[2025-08-09 11:14] LABS: Glucose Urine UA Negative (Normal); Nitrate Urine Negative (Negative); Specific Gravity, Urine 1.026 (1.005-1.030)
[2025-08-09 11:21] LABS: PCP Screen Urine Negative (Negative)
[2025-08-09 11:35] LABS: UA Slide Review UA Slide Review Perf
[2025-08-09 12:00] LABS: C.Diff PCR (Lab) NEGATIVE (Negative)
[2025-08-09 13:02] LABS: Coronavirus 229E,HKU1,NL63,OC4 Not Detected (NOT DETECT); Parainfluenza Virus Type 1 Not Detected (NOT DETECT); Parainfluenza Virus Type 2 Not Detected (NOT DETECT); Parainfluenza Virus Type 3 Not Detected (NOT DETECT); Parainfluenza Virus Type 4 Not Detected (NOT DETECT); SARS-COV-2 Not Detected (NOT DETECT)
[2025-08-09 13:22] VITALS: BP 110/74; PULSE 100; O2SAT 98
== END 2025-08-09 13:24 | disposition home or self-care (01) ==
PROVIDERS: Emergency Medicine; Emergency Provider Physician Assistant; PCP Family Medicine
DX: A08.4 Viral intestinal infection, unspecified (principal); E87.6 Hypokalemia
CPT/HCPCS: 36415; 80053; 80306; 81001; 83605; 83690; 85025; 86140; 87486; 87493; 87581; 87633; 96374; 99284; J2765; J7030; J9999